=== PATIENT | female | born 1945 | race Caucasian/White ===

== ENCOUNTER 2016-08-14 01:25 | Emergency (ER) | payer MEDICARE ==
[~2016-08-14] VITALS: Ht 165.1 cm; Wt 89.8 kg
[~2016-08-14 01:25] MED LIST: FLUT1DIS3 INH; Ipratropium/Albuterol Sulfate NEB; LEVO500T38 PO; METO50TA2 PO; PRED-220 PO; PROAIR HFA8.5 GM IH
[2016-08-14] MEDS ORDERED: IPRATRPIUM/ALBUTEROL 0.5/2.5MG 3 ML NEBU. NEB ONE (03:00)
[2016-08-14] MEDS ORDERED: ALBUTEROL SULFATE 2.5 MG/3 ML NEBU. NEB ONE (03:15)
--- NOTE | 2016-08-14 03:16 | PHYS DOC ---
Past Medical History Past Medical History: Anxiety, COPD, Hypertension, Other Additional Past Medical Histor: shingles Past Surgical History: Appendectomy, Cholecystectomy Alcohol Use: None Drug Use: None Adult General Chief Complaint Chief Complaint: SHORTNESS OF BREATH HPI HPI Patient is a 71 year old female who presents with complaint of shortness of breath. Patient states that her nebulizer machine broke at home earlier today. Patient states that she normally takes breathing treatments every 4-6 hours. Patient states since her machine broke she has not been able to get her breathing treatment which has caused her to get worsening shortness of breath. Patient denies any fevers or other symptoms. Patient came to the emergency department essentially for treatment of her COPD. Patient denies any chest pain or abdominal pain. Review of Systems Review of Systems Constitutional: Denies fever or chills [] Eyes: Denies change in visual acuity, redness, or eye pain [] HENT: Denies nasal congestion or sore throat [] Respiratory: Cough, shortness of breath [] Cardiovascular: No additional information not addressed in HPI [] GI: Denies abdominal pain, nausea, vomiting, bloody stools or diarrhea [] : Denies dysuria or hematuria [] Musculoskeletal: Denies back pain or joint pain [] Integument: Denies rash or skin lesions [] Neurologic: Denies headache, focal weakness or sensory changes [] Current Medications Current Medications Current Medications Medications (Trade) Dose Ordered Sig/Low Start Time Stop Time Status Last Admin Dose Admin Albuterol Sulfate (Ventolin Neb Soln) 2.5 mg 1X ONCE 08/14/16 03:15 08/14/16 03:16 Albuterol/ Ipratropium (Duoneb) 3 ml 1X ONCE 08/14/16 03:00 08/14/16 03:02 DC 08/14/16 02:36 3 ML Allergies Allergies Allergies Coded Allergies Type Severity Reaction Last Updated Verified Penicillins Allergy Intermediate 03/28/14 No Physical Exam Physical Exam Constitutional: Alert, afebrile, appears in mild respiratory distress. [] HENT: Normocephalic, atraumatic, bilateral external ears normal, oropharynx moist, no oral exudates, nose normal. [] Eyes: PERRLA, EOMI, conjunctiva normal, no discharge. [] Neck: Normal range of motion, no tenderness, supple, no stridor. [] Cardiovascular:Heart rate regular rhythm, no murmur [] Lungs & Thorax: Mild accessory muscle usage present, expiratory wheezes bilaterally, no rales [] Abdomen: Bowel sounds normal, soft, no tenderness, no masses, no pulsatile masses. [] Skin: Warm, dry, no erythema, no rash. [] Back: No tenderness, no CVA tenderness. [] Extremities: No tenderness, no cyanosis, no clubbing, ROM intact, no edema. [] Neurologic: Alert and oriented X 3, normal motor function, normal sensory function, no focal deficits noted. [] Current Patient Data Vital Signs Vital Signs Date Time Temp Pulse Resp B/P Pulse Ox O2 Delivery O2 Flow Rate FiO2 08/14/16 02:40 99 Room Air 08/14/16 01:45 98.2 88 28 214/102 4 98.2 EKG EKG Interpreted by me: Heart rate 82, sinus rhythm, normal intervals, right axis deviation, no acute ST/T-wave abnormalities present Radiology/Procedures Radiology/Procedures Not performed [] Course & Med Decision Making Course & Med Decision Making Pertinent Labs and Imaging studies reviewed. (See chart for details) The patient was given breathing treatments in the emergency department with resolution of symptoms. After speaking with the patient, she states that her main concern is that she does not have a nebulizer machine. She states that she requires a prescription for Percocet the nebulizer machine. I contacted [facility] pharmacy at [address] [place] [address] and spoke with the pharmacist at that location. She stated that the patient were provided a prescription she would be able to solve the nebulizer machine to the patient at cost. Spoke with patient regarding this plan and she is in agreement. Patient provided with a prescription for a nebulizer machine and instructed to go to [facility] pharmacy upon discharge from purchase of her machine. Patient states that she has plenty of albuterol solution at home and does not require any prescription for that. Advised patient to return emergency department for any worsening symptoms. Patient voiced understanding and in agreement with treatment plan. Dragon Disclaimer Dragon Disclaimer This electronic medical record was generated, in whole or in part, using a voice recognition dictation system. Departure Departure Impression: Primary Impression: COPD (chronic obstructive pulmonary disease) Disposition: HOME, SELF-CARE Condition: IMPROVED Referrals: NO PCP (PCP) Patient Instructions: Chronic Obstructive Pulmonary Disease Additional Instructions: Go to [facility] pharmacy at [address] [place] [address] upon discharge and present your prescription for a nebulizer machine and they will be able to sell you a machine at cost of approximately $70. Return to the emergency department for any worsening symptoms. Problem Qualifiers Primary Impression: COPD (chronic obstructive pulmonary disease) COPD type: unspecified COPD Qualified Code: J44.9 - Chronic obstructive pulmonary disease, unspecified RASHAAD ABEBE MD Aug 14, 2016 03:16
[2016-08-14 03:29] VITALS: BP 180/75
--- NOTE | 2016-08-14 06:37 | EKG ---
[facility] [address] [place] [address] Test Date: 2016-08-14 Test Time: 01:39:32 Pat Name: TONI LEWIS Department: Room: Gender: F Safety Person: : 1945 Requested By: RASHAAD ABEBE Order Number: [id number] Reading MD: Janette Yost Measurements Intervals [place] Rate: 82 P: 90 MD: 174 QRS: 146 QRSD: 102 T: 144 QT: 374 QTc: 440 Interpretive Statements SINUS RHYTHM RIGHT VENTRICULAR HYPERTROPHY QRS(T) CONTOUR ABNORMALITY CONSISTENT WITH HIGH LATERAL INFARCT AGE UNDETERMINED T ABNORMALITY IN INFERIOR LEADS Electronically Signed On 08-19-2016 12:52:54 CDT by Janette Yost
== END 2016-08-14 03:35 | disposition home or self-care (01) ==
LOC: ER 01:25
DX: J44.9 Chronic obstructive pulmonary disease, unspecified (principal); F41.9 Anxiety disorder, unspecified; I10 Essential (primary) hypertension; Z90.49 Acquired absence of other specified parts of digestive tract; Z88.1 Allergy status to other antibiotic agents
CPT/HCPCS: 93005; 94640; 99284; J7620

== ENCOUNTER 2017-01-10 10:50 | Emergency (ER) | payer MEDICARE ==
[~2017-01-10 10:50] MED LIST changes: -LEVO500T38 PO; +LEVO500T59 PO
--- NOTE | 2017-01-10 11:15 | PHYS DOC ---
Past Medical History Past Medical History: Anxiety, COPD, Hypertension, Other Additional Past Medical Histor: shingles Past Surgical History: Appendectomy, Cholecystectomy Alcohol Use: None Drug Use: None Adult General Chief Complaint Chief Complaint: DYSPNEA/RESPIRATOY DISTRESS HPI HPI Patient is a pleasant 71-year-old female with history of COPD and hypertension presents to the emergency department looking for a folder taper operator office and was actually triaged and brought back to the ER with no complaint. She is here as an outpatient she is supposed be on the for an outpatient evaluation in Dr. ARZATE's office when she was told that she can here which she does not know was the emergency department. She has no complaints and no need to be evaluated here in the emergency department. Review of Systems Review of Systems Respiratory: Denies cough or patient does have chronic shortness of breath[] Review systems otherwise collected and negative. Allergies Allergies Allergies Coded Allergies Type Severity Reaction Last Updated Verified Penicillins Allergy Intermediate 03/28/14 No Physical Exam Physical Exam Vital signs stable patient on her normal 2 L of oxygen satting at 94% on noted to be hypertensive which is chronic for patient. Constitutional: Well developed, well nourished, no acute distress, non-toxic appearance. [] Cardiovascular:Heart rate regular rhythm, no murmur [] Lungs & Thorax: Bilateral breath sounds clear to auscultation [] Neurologic: Alert and oriented X 3 Psychologic: Affect normal, judgement normal, mood normal. [] EKG EKG [] Radiology/Procedures Radiology/Procedures [] Course & Med Decision Making Course & Med Decision Making Pertinent Labs and Imaging studies reviewed. (See chart for details) patient came into the emergency department under the impression she is going to an outpatient clinic for an evaluation by folder taper operator. She has no complaint she has no need to be seen here in the emergency department. She has negative systems, normal exam at her baseline hypertension. She would like to be discharged. [] Dragon Disclaimer Dragon Disclaimer This electronic medical record was generated, in whole or in part, using a voice recognition dictation system. Departure Departure Impression: Primary Impression: Well adult health check Disposition: HOME, SELF-CARE Condition: IMPROVED Referrals: NO PCP (PCP) DILLON ARZATE MD Additional Instructions: Please return if you have any questions or concerns. TRACI WATKINS MD Jan 10, 2017 11:15
== END 2017-01-10 11:15 | disposition home or self-care (01) ==
LOC: ER 10:50
DX: Z00.00 Encounter for general adult medical examination without abnormal findings (principal); J44.9 Chronic obstructive pulmonary disease, unspecified; I10 Essential (primary) hypertension; F41.9 Anxiety disorder, unspecified; Z88.0 Allergy status to penicillin
CPT/HCPCS: 99281

== ENCOUNTER → 2017-06-13 | Outpatient (CLI) | payer MEDICARE | END | disposition home or self-care (01) | LOC: KCIC 12:36 | DX: J43.9 Emphysema, unspecified (principal); J44.9 Chronic obstructive pulmonary disease, unspecified; J02.9 Acute pharyngitis, unspecified; I70.0 Atherosclerosis of aorta | CPT/HCPCS: 71046 ==

== ENCOUNTER 2019-03-09 15:49 | Inpatient (IN) | payer MEDICARE ==
[~2019-03-09] VITALS: Ht 165.1 cm; Wt 86.4 kg
[~2019-03-09 15:49] MED LIST changes: +ALBU2.5V8 IH; +LISI-130 PO; -METO50TA2 PO; +METO50TA6 PO; -PROAIR HFA8.5 GM IH; +Pantoprazole PO
--- NOTE | 2019-03-09 16:16 | PHYS DOC ---
Past Medical History Past Medical History: Anxiety, COPD, Hypertension, Other Additional Past Medical Histor: shingles Past Surgical History: Appendectomy, Cholecystectomy Additional Past Surgical Histo: cyst from breast Smoking: Quit Greater Than 1 Year Alcohol Use: None Drug Use: None Adult General Chief Complaint Chief Complaint: SHORTNESS OF BREATH HPI HPI Patient is a 73-year-old female, with oxygen-dependent COPD who presents to the emergency department for evaluation. She has no clear chief complaint, she states "my children thought I needed to come". According to EMS report, she was out of her nebulizers for several days, she states that she uses numerous nebulizer treatments per day, and she just got a refill today and took numerous nebulizer treatments, almost hourly, for COPD. She denies any pain, including any chest pain. She has had a mild cough, but currently denies that she is anymore short of breath than her baseline. She has not had any fevers or chills. There are no other family members present at this time. There are no alleviating or exacerbating factors to the patient's symptoms otherwise. Review of Systems Review of Systems Constitutional: Denies fever or chills [] Eyes: Denies change in visual acuity, redness, or eye pain [] HENT: Denies nasal congestion or sore throat [] Respiratory: Denies cough or shortness of breath different than baseline [] Cardiovascular: The patient denies any shortness of breath, chest pain, palpitations, or orthopnea [] GI: Denies abdominal pain, nausea, vomiting, bloody stools or diarrhea [] : Denies dysuria or hematuria [] Musculoskeletal: Denies back pain or joint pain [] Integument: Denies rash or skin lesions [] Neurologic: Denies headache, focal weakness or sensory changes [] Endocrine: Denies polyuria or polydipsia [] All other systems were reviewed and found to be within normal limits, except as documented in this note. Current Medications Current Medications Current Medications Medications (Trade) Dose Ordered Sig/Low Start Time Stop Time Status Last Admin Dose Admin Albuterol/ Ipratropium (Duoneb) 3 ml 1X ONCE 03/09/19 18:00 03/09/19 18:01 UNV Lorazepam (Ativan Inj) 1 mg 1X ONCE 03/09/19 16:00 03/09/19 16:03 DC 03/09/19 16:57 1 MG Allergies Allergies Allergies Coded Allergies Type Severity Reaction Last Updated Verified Penicillins Allergy Intermediate 03/14/18 Yes Physical Exam Physical Exam PHYSICAL EXAM: CONSTITUTIONAL: Well developed, well nourished HEAD: normocephalic, atraumatic EENT: PERRL, EOMI. Conjunctivae normal color, sclerae non-icteric; moist mucous membranes. NECK: Supple, non-tender; no meningismus. LUNGS: There are globally diminished breath sounds, with mildly labored debbie athing, but the patient states that this is baseline. There are no Rales, wheezes, or rhonchi.. HEART: Regular rate and rhythm, no murmur CHEST: No deformity; non-tender ABDOMEN: The abdomen is soft, and non-tender, no masses or bruits. EXTREM: Normal ROM; no deformity, no calf tenderness. Normal pulses palpable in all extremities. There is no pedal edema. SKIN: No rash; no diaphoresis NEURO: Alert; normal speech and cognition; CN's grossly intact; strength grossly intact without focal deficit. BACK: No CVA TTP. PSYCHIATRIC: The patient appears moderately anxious. Current Patient Data Vital Signs Vital Signs Date Time Temp Pulse Resp B/P (MAP) Pulse Ox O2 Delivery O2 Flow Rate FiO2 03/09/19 15:49 98.9 99 20 176/67 (103) 2 Room Air 98.9 Lab Values Laboratory Tests Test 03/09/19 16:15 03/09/19 16:45 O2 Saturation 88 % (92-99) L Arterial Blood pH 7.40 (7.35-7.45) Arterial Blood pCO2 at Patient Temp 56 mmHg (35-46) H Arterial Blood pO2 at Patient Temp 51 mmHg (65-108) L Arterial Blood HCO3 33 mmol/L (21-28) H Arterial Blood Base Excess 7 mmol/L (-3-3) H FiO2 2 lpm nc White Blood Count 5.9 x10^3/uL (4.0-11.0) Red Blood Count 4.52 x10^6/uL (3.50-5.40) Hemoglobin 13.2 g/dL (12.0-15.5) Hematocrit 40.0 % (36.0-47.0) Mean Corpuscular Volume 88 fL (79-100) Mean Corpuscular Hemoglobin 29 pg (25-35) Mean Corpuscular Hemoglobin Concent 33 g/dL (31-37) Red Cell Distribution Width 14.4 % (11.5-14.5) Platelet Count 169 x10^3/uL (140-400) Neutrophils (%) (Auto) 64 % (31-73) Lymphocytes (%) (Auto) 24 % (24-48) Monocytes (%) (Auto) 9 % (0-9) Eosinophils (%) (Auto) 3 % (0-3) Basophils (%) (Auto) 1 % (0-3) Neutrophils # (Auto) 3.8 x10^3/uL (1.8-7.7) Lymphocytes # (Auto) 1.4 x10^3/uL (1.0-4.8) Monocytes # (Auto) 0.5 x10^3/uL (0.0-1.1) Eosinophils # (Auto) 0.1 x10^3/uL (0.0-0.7) Basophils # (Auto) 0.0 x10^3/uL (0.0-0.2) Sodium Level 148 mmol/L (136-145) H Potassium Level 3.6 mmol/L (3.5-5.1) Chloride Level 104 mmol/L (98-107) Carbon Dioxide Level 38 mmol/L (21-32) H Anion Gap 6 (6-14) Blood Urea Nitrogen 13 mg/dL (7-20) Creatinine 0.7 mg/dL (0.6-1.0) Estimated GFR (Cockcroft-Gault) 82.0 BUN/Creatinine Ratio 19 (6-20) Glucose Level 147 mg/dL (70-99) H Calcium Level 8.9 mg/dL (8.5-10.1) Total Bilirubin 0.5 mg/dL (0.2-1.0) Aspartate Amino Transferase (AST) 16 U/L (15-37) Alanine Aminotransferase (ALT) 10 U/L (14-59) L Alkaline Phosphatase 75 U/L (46-116) Troponin I Quantitative < 0.017 ng/mL (0.000-0.055) KZ-Xod-S-Type Natriuretic Peptide 531 pg/mL (0-124) H Total Protein 6.6 g/dL (6.4-8.2) Albumin 3.8 g/dL (3.4-5.0) Albumin/Globulin Ratio 1.4 (1.0-1.7) Laboratory Tests 03/09/19 16:45 Laboratory Tests 03/09/19 16:45 EKG EKG Normal sinus rhythm at a rate of 92 beats for minute, normal axis, right bundle-branch block with otherwise normal intervals. There are no acute ischemic ST/T changes. Radiology/Procedures Radiology/Procedures PROCEDURE: CHEST PA & LATERAL Chest radiograph 03/09/2019 3:59 PM INDICATION: Shortness of breath COMPARISON: 03/13/2018 TECHNIQUE: Frontal and lateral views of the chest are provided. FINDINGS: The cardiomediastinal silhouette is within normal limits. There are no pleural effusions. There is no pulmonary vascular congestion. There is no pneumothorax. The lungs are clear. Suspect mild pulmonary emphysematous changes. No significant osseous abnormality is identified. IMPRESSION: COPD without acute cardiopulmonary process. [] Course & Med Decision Making Course & Med Decision Making 5:50 PM: Pertinent Labs and Imaging studies reviewed. (See chart for details) []The patient's condition remains stable. Her oxygen saturations remains fluctuating, between 89-92% on her home oxygen. She is uncertain if she feels well enough to go home. She is agreeable for overnight observation. The hospitalist graciously agreed to admit the patient overnight. There is certainly a social issue going on with the patient and her living situation, which will need to be evaluated before she is released. Dragon Disclaimer Dragon Disclaimer This electronic medical record was generated, in whole or in part, using a voice recognition dictation system. Departure Departure Impression: Primary Impression: COPD (chronic obstructive pulmonary disease) Additional Impressions: Dyspnea Anxiety Disposition: ADMITTED INPATIENT Condition: STABLE Referrals: AGUSTIN RIOS DO (PCP) Problem Qualifiers AWAIS MENDENHALL MD Mar 09, 2019 16:16
[2019-03-09 16:27] LABS: BASE EXCESS ABG 7 mmol/L (-3-3); HCO3 ABG 33 mmol/L (21-28); PCO2 ABG 56 mmHg (35-46); PO2 ABG 51 mmHg (65-108); SAT O2 ABG 88 % (92-99)
--- NOTE | 2019-03-09 16:43 | RAD ---
Chest radiograph 03/09/2019 3:59 PM INDICATION: Shortness of breath COMPARISON: 03/13/2018 TECHNIQUE: Frontal and lateral views of the chest are provided. FINDINGS: The cardiomediastinal silhouette is within normal limits. There are no pleural effusions. There is no pulmonary vascular congestion. There is no pneumothorax. The lungs are clear. Suspect mild pulmonary emphysematous changes. No significant osseous abnormality is identified. IMPRESSION: COPD without acute cardiopulmonary process. Electronically signed by: Jerri Ding MD (03/09/2019 4:41 PM) [facility]
[2019-03-09 17:01] LABS: BASO % 1 % (0-3); EOS # 0.1 x10^3/uL (0.0-0.7); EOS % 3 % (0-3); HEMOGLOBIN 13.2 g/dL (12.0-15.5); LYMPH # 1.4 x10^3/uL (1.0-4.8); LYMPH % 24 % (24-48); MEAN CORPUSCULAR HEMOGLOBIN 29 pg (25-35); MEAN CORPUSCULAR HGB CONC 33 g/dL (31-37); MEAN CORPUSCULAR VOLUME 88 fL (79-100); MONO # 0.5 x10^3/uL (0.0-1.1); MONO % 9 % (0-9); NEUT # 3.8 x10^3/uL (1.8-7.7); NEUT % 64 % (31-73); PLATELET COUNT 169 x10^3/uL (140-400); RED BLOOD COUNT 4.52 x10^6/uL (3.50-5.40); RED CELL DISTRIBUTION WIDTH 14.4 % (11.5-14.5); WHITE BLOOD COUNT 5.9 x10^3/uL (4.0-11.0)
[2019-03-09 17:11] LABS: CALCIUM 8.9 mg/dL (8.5-10.1); CREATININE 0.7 mg/dL (0.6-1.0); POTASSIUM 3.6 mmol/L (3.5-5.1)
[2019-03-09 17:16] LABS: ALBUMIN 3.8 g/dL (3.4-5.0); ALBUMIN/GLOBULIN RATIO 1.4 (1.0-1.7); TOTAL BILIRUBIN 0.5 mg/dL (0.2-1.0); TOTAL PROTEIN 6.6 g/dL (6.4-8.2)
[2019-03-09] MEDS ORDERED: IPRATRPIUM/ALBUTEROL 0.5/2.5MG 3 ML NEBU. NEB ONE (18:00)
[2019-03-09 20:45] VITALS: BP 171/78
[2019-03-09] MEDS ORDERED: ALPR1TAB2 PO (22:04)
[2019-03-09] MEDS ORDERED: ALBUTEROL SULFATE 2.5 MG/3 ML NEBU. NEB PRN (22:30)
[2019-03-09] MEDS: ALPRAZolam 1 MG TABLET PO SCH (23:11)
[2019-03-09 23:33] VITALS: BP 157/70
[2019-03-10 03:33] VITALS: BP 152/52
--- NOTE | 2019-03-10 06:13 | EKG ---
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
[2019-03-10 07:52] VITALS: BP 166/69
[2019-03-10] MEDS: IPRATRPIUM/ALBUTEROL 0.5/2.5MG 3 ML NEBU. NEB SCH ×6 (08:15→20:00)
[2019-03-10] MEDS ORDERED: FLU VAX QS 2019-20 (36MOS+)/PF 0.5 ML SYRINGE. VAX IM ONE (09:00)
--- NOTE | 2019-03-10 09:17 | NUR ---
Flu VIS given, patient denies questions or allergies and wishes to proceed with flu vaccine. See emar.
--- NOTE | 2019-03-10 10:42 | PDOC1 ---
History and Physical Date of Admission Date of Admission DATE: 03/10/19 TIME: 10:42 Identification/Chief Complaint Chief Complaint SEEN IN ER WITH soa 73-year-old female, with oxygen-dependent COPD who presents to the emergency department for evaluation. She has no clear chief complaint, she states "my children thought I needed to come". According to EMS report, she was out of her nebulizers for several days, she states that she uses numerous nebulizer treatments per day, and she just got a refill today and took numerous nebulizer treatments, almost hourly, for COPD. abg confirms severe hypoxia with hypercapnic failure smoked 1 ppd x 40 plus years stopped 4 yrs ago, has never seen a pulm DR , VERY SOA WITH ANY ACTIVITY LAST SAW DR STEVENS YRS AGO Past Medical History Past Medical History Past Medical History Past Medical History Past Medical History: Anxiety, COPD, Hypertension, Other Additional Past Medical Histor: shingles Past Surgical History: Appendectomy, Cholecystectomy Additional Past Surgical Histo: cyst from breast Smoking: Quit Greater Than 1 Year 50 PK YR HX Alcohol Use: None Drug Use: None FHX OBESITY Cardiovascular: HTN, Hyperlipidemia Pulmonary: Asthma, COPD Musculoskeletal: Osteoarthritis Past Surgical History Past Surgical History: Other, No pertinent history Family History Family History: Chronic Bronchitis, Hypertension Social History Smoke: Quit ALCOHOL: rare Drugs: None Current Problem List Problem List Problems Medical Problems: (1) Anxiety Status: Acute (2) COPD (chronic obstructive pulmonary disease) Status: Acute (3) Dyspnea Status: Acute Current Medications Current Medications Current Medications Lorazepam (Ativan Inj) 1 mg 1X ONCE IV Last administered on 03/09/19at 16:57; Start 03/09/19 at 16:00; Stop 03/09/19 at 16:03; Status DC Albuterol/ Ipratropium (Duoneb) 3 ml 1X ONCE NEB Last administered on 03/09/19at 18:02; Start 03/09/19 at 18:00; Stop 03/09/19 at 18:01; Status DC Influenza Virus Vaccine Quadrival (Afluria Quad 2019-20 (3yr Up) Syringe) 0.5 ml ONCE ONCE VAX IM Last administered on 03/10/19at 09:23; Start 03/10/19 at 09:00; Stop 03/10/19 at 09:06; Status DC Albuterol Sulfate (Ventolin Neb Soln) 2.5 mg PRN Q4HRS PRN NEB SHORTNESS OF BREATH; Start 03/09/19 at 22:30 Albuterol/ Ipratropium (Duoneb) 3 ml RTQID NEB Last administered on 03/10/19at 08:15; Start 03/10/19 at 08:00 Alprazolam (Xanax) 1 mg HS PO Last administered on 03/09/19at 23:11; Start 03/09/19 at 23:00 Active Scripts Active [Pantoprazole] 40 MG Tablet.dr 40 Mg PO DAILY07 14 Days Lisinopril 40 Mg Tablet 40 Mg PO DAILY 30 Days Prednisone (Prednisone) 10 Mg Tablet 10 Mg PO UD Take 3 tablets by mouth twice a day for 3 days, then take 2 tablets by mouth twice a day for 3 days, then take 1 tablet by mouth twice a day for 3 days, then take 1 tablet by mouth daily x 3 days, then stop. Proair Hfa Inhaler (Albuterol Sulfate) 8.5 Gm Hfa.aer.ad 2 Puff IH PRN Q4-6HRS [Ipratropium/Albuterol Sulfate] 3 ML Nebu 3 Ml NEB RTQID Advair 250-50 Diskus (Fluticasone/Salmeterol) 1 Puff Puff 1 Puff INH BID Reported Xanax (Alprazolam) 1 Mg Tablet 1 Tab PO HS Allergies Allergies: Coded Allergies: Penicillins (Verified Allergy, Intermediate, 03/14/18) ROS Review of System Review of Systems Review of Systems Constitutional: Denies fever or chills [] Eyes: Denies change in visual acuity, redness, or eye pain [] HENT: Denies nasal congestion or sore throat [] Respiratory: Denies cough or shortness of breath different than baseline [] Cardiovascular: The patient denies any shortness of breath, chest pain, palpitations, or orthopnea [] GI: Denies abdominal pain, nausea, vomiting, bloody stools or diarrhea [] : Denies dysuria or hematuria [] Musculoskeletal: Denies back pain or joint pain [] Integument: Denies rash or skin lesions [] Neurologic: Denies headache, focal weakness or sensory changes [] Endocrine: Denies polyuria or polydipsia [] 14 pt systems were reviewed and found to be within normal limits, except as documented General: YES: Fatigue Breast: No New/Changing Breast Lumps, No Nipple changes, No Nipple discharge, No Other Respiratory: YES: Cough, Shortness of breath, SOB with excertion Cardiovascular: yes Orthopnea Gastrointestinal: No Nausea, No Vomiting, No Abdominal Pain, No Diarrhea, No Constipation, No Melena, No Hematochezia, No Other Vitals Vitals Vital Signs Date Time Temp Pulse Resp B/P (MAP) Pulse Ox O2 Delivery O2 Flow Rate FiO2 03/10/19 08:15 91 Nasal Cannula 2.0 03/10/19 07:52 97.8 59 18 166/69 (101) 97.8 Labs Labs Laboratory Tests Test 03/09/19 16:15 03/09/19 16:45 O2 Saturation 88 % (92-99) Arterial Blood pH 7.40 (7.35-7.45) Arterial Blood pCO2 at Patient Temp 56 mmHg (35-46) Arterial Blood pO2 at Patient Temp 51 mmHg (65-108) Arterial Blood HCO3 33 mmol/L (21-28) Arterial Blood Base Excess 7 mmol/L (-3-3) FiO2 2 lpm nc White Blood Count 5.9 x10^3/uL (4.0-11.0) Red Blood Count 4.52 x10^6/uL (3.50-5.40) Hemoglobin 13.2 g/dL (12.0-15.5) Hematocrit 40.0 % (36.0-47.0) Mean Corpuscular Volume 88 fL (79-100) Mean Corpuscular Hemoglobin 29 pg (25-35) Mean Corpuscular Hemoglobin Concent 33 g/dL (31-37) Red Cell Distribution Width 14.4 % (11.5-14.5) Platelet Count 169 x10^3/uL (140-400) Neutrophils (%) (Auto) 64 % (31-73) Lymphocytes (%) (Auto) 24 % (24-48) Monocytes (%) (Auto) 9 % (0-9) Eosinophils (%) (Auto) 3 % (0-3) Basophils (%) (Auto) 1 % (0-3) Neutrophils # (Auto) 3.8 x10^3/uL (1.8-7.7) Lymphocytes # (Auto) 1.4 x10^3/uL (1.0-4.8) Monocytes # (Auto) 0.5 x10^3/uL (0.0-1.1) Eosinophils # (Auto) 0.1 x10^3/uL (0.0-0.7) Basophils # (Auto) 0.0 x10^3/uL (0.0-0.2) Sodium Level 148 mmol/L (136-145) Potassium Level 3.6 mmol/L (3.5-5.1) Chloride Level 104 mmol/L (98-107) Carbon Dioxide Level 38 mmol/L (21-32) Anion Gap 6 (6-14) Blood Urea Nitrogen 13 mg/dL (7-20) Creatinine 0.7 mg/dL (0.6-1.0) Estimated GFR (Cockcroft-Gault) 82.0 BUN/Creatinine Ratio 19 (6-20) Glucose Level 147 mg/dL (70-99) Calcium Level 8.9 mg/dL (8.5-10.1) Total Bilirubin 0.5 mg/dL (0.2-1.0) Aspartate Amino Transf (AST/SGOT) 16 U/L (15-37) Alanine Aminotransferase (ALT/SGPT) 10 U/L (14-59) Alkaline Phosphatase 75 U/L (46-116) Troponin I Quantitative < 0.017 ng/mL (0.000-0.055) ZY-Dla-C-Type Natriuretic Peptide 531 pg/mL (0-124) Total Protein 6.6 g/dL (6.4-8.2) Albumin 3.8 g/dL (3.4-5.0) Albumin/Globulin Ratio 1.4 (1.0-1.7) Laboratory Tests Test 03/09/19 16:15 03/09/19 16:45 O2 Saturation 88 % (92-99) Arterial Blood pH 7.40 (7.35-7.45) Arterial Blood pCO2 at Patient Temp 56 mmHg (35-46) Arterial Blood pO2 at Patient Temp 51 mmHg (65-108) Arterial Blood HCO3 33 mmol/L (21-28) Arterial Blood Base Excess 7 mmol/L (-3-3) FiO2 2 lpm nc White Blood Count 5.9 x10^3/uL (4.0-11.0) Red Blood Count 4.52 x10^6/uL (3.50-5.40) Hemoglobin 13.2 g/dL (12.0-15.5) Hematocrit 40.0 % (36.0-47.0) Mean Corpuscular Volume 88 fL (79-100) Mean Corpuscular Hemoglobin 29 pg (25-35) Mean Corpuscular Hemoglobin Concent 33 g/dL (31-37) Red Cell Distribution Width 14.4 % (11.5-14.5) Platelet Count 169 x10^3/uL (140-400) Neutrophils (%) (Auto) 64 % (31-73) Lymphocytes (%) (Auto) 24 % (24-48) Monocytes (%) (Auto) 9 % (0-9) Eosinophils (%) (Auto) 3 % (0-3) Basophils (%) (Auto) 1 % (0-3) Neutrophils # (Auto) 3.8 x10^3/uL (1.8-7.7) Lymphocytes # (Auto) 1.4 x10^3/uL (1.0-4.8) Monocytes # (Auto) 0.5 x10^3/uL (0.0-1.1) Eosinophils # (Auto) 0.1 x10^3/uL (0.0-0.7) Basophils # (Auto) 0.0 x10^3/uL (0.0-0.2) Sodium Level 148 mmol/L (136-145) Potassium Level 3.6 mmol/L (3.5-5.1) Chloride Level 104 mmol/L (98-107) Carbon Dioxide Level 38 mmol/L (21-32) Anion Gap 6 (6-14) Blood Urea Nitrogen 13 mg/dL (7-20) Creatinine 0.7 mg/dL (0.6-1.0) Estimated GFR (Cockcroft-Gault) 82.0 BUN/Creatinine Ratio 19 (6-20) Glucose Level 147 mg/dL (70-99) Calcium Level 8.9 mg/dL (8.5-10.1) Total Bilirubin 0.5 mg/dL (0.2-1.0) Aspartate Amino Transf (AST/SGOT) 16 U/L (15-37) Alanine Aminotransferase (ALT/SGPT) 10 U/L (14-59) Alkaline Phosphatase 75 U/L (46-116) Troponin I Quantitative < 0.017 ng/mL (0.000-0.055) EL-Tdh-B-Type Natriuretic Peptide 531 pg/mL (0-124) Total Protein 6.6 g/dL (6.4-8.2) Albumin 3.8 g/dL (3.4-5.0) Albumin/Globulin Ratio 1.4 (1.0-1.7) Images Images Examination: CT chest with IV contrast. History: Followup left upper lobe infiltrate COMPARISON: 10/01/2014. TECHNIQUE Axial CT images of the chest were performed with IV contrast. Coronal and sagittal reformats were performed. FINDINGS The visualized thyroid gland grossly appears unremarkable. The central airways are patent. Multiple prominent appearing mediastinal lymph nodes are again identified with the largest measuring 1.9 centimeters in the pretracheal region grossly appears similar to prior exam. The subcarinal lymph node measures 2.4 centimeters in transverse dimension. The heart size is normal. No evidence of pericardial effusion identified. Moderate aortic atherosclerosis. Coronary artery calcifications identified. The ascending thoracic aorta measures 3.6 x 3.5 centimeters in dimension. Bilateral centrilobular emphysematous changes identified in the lungs particularly the upper lobe the lungs. The previously visualized left upper lobe infiltrate has completely resolved. There is a 4 millimeter questionable pulmonary nodule identified in the left upper lobe of the lung best visualized on series 4 image #13. Few scattered calcified granulomas identified in the bilateral lungs. There is a small 4 millimeter noncalcified pulmonary nodule identified in the right lung base best visualized on series 4 image #43. No evidence of pleural effusion or pneumothorax. The visualized liver, adrenals grossly appear unremarkable. Few calcified granulomas identified in the spleen. The bilateral kidneys enhance symmetrically. There is a partially visualized cystic structure identified in the midpole of the left kidney. Mild degenerative changes identified in the thoracic spine. Moderate aortic atherosclerosis. IMPRESSION - The previously visualized infiltrate in the left upper lobe of the lung has completely resolved. - 4 millimeter pulmonary nodule identified in the left upper lobe and right lower lobe of the lung. Followup per Fleischner society guidelines. - Few scattered calcified granulomas identified in the bilateral lungs. - Few prominent appearing mediastinal lymph nodes are identified , nonspecific, followup examination is recommended to document resolution. - Bilateral emphysematous is identified in the lungs. - Partially visualized exophytic cystic structure identified in the midpole of the left kidney could be a cyst or cystic lesion. Electronically signed by: Brenden Wright (Feb 02, 2015 12:08:39) DICTATED and SIGNED BY: BRENDEN WRIGHT MD DATE: 02/02/15 1208 CC: AGUSTIN RIOS DO ~ SEX: F EXAM STATUS: PRE ER ORD. PHYSICIAN: AWAIS MENDENHALL MD REASON: SOB PROCEDURE: CHEST PA & LATERAL Chest radiograph 03/09/2019 3:59 PM INDICATION: Shortness of breath COMPARISON: 03/13/2018 TECHNIQUE: Frontal and lateral views of the chest are provided. FINDINGS: The cardiomediastinal silhouette is within normal limits. There are no pleural effusions. There is no pulmonary vascular congestion. There is no pneumothorax. The lungs are clear. Suspect mild pulmonary emphysematous changes. No significant osseous abnormality is identified. IMPRESSION: COPD without acute cardiopulmonary process. Electronically signed by: Ramiro Trevizo MD (03/09/2019 4:41 PM) [facility] DICTATED and SIGNED BY: RAMIRO TREVIZO MD DATE: 03/09/19 1641 VTE Prophylaxis Ordered VTE Prophylaxis Devices: Yes VTE Pharmacological Prophylaxi: Yes Assessment/Plan Assessment/Plan impression acute SEVERE copd exac acute severe hypercapnic , hypoxic respiratory failure in 2014 ct chest , Multiple prominent appearing mediastinal lymph nodes are identified with the largest measuring 1.9 centimeters in the pretracheal region grossly appears similar to prior exam. The subcarinal lymph node measures 2.4 centimeters in transverse dimension. morbid obesity uncontrolled hypertension tobacco abuse hx DYSPNEA ON EXERTION plan admit tele iv steroid taper pulm consult home meds dvt prophylaxis ct chest echo cardiology consult TSH 75 MIN PT EXAM, CHART REVIEW, > 50% OF TIME SPENT WITH EXAM, CHART REVIEW, PT CARE COORDINATION YOANDY GUTIERREZ MD Mar 10, 2019 10:42
[2019-03-10 11:59] VITALS: BP 125/62
[2019-03-10 15:59] VITALS: BP 155/82
[2019-03-10] MEDS ORDERED: ALBUTEROL SULFATE 2.5 MG/3 ML NEBU. NEB PRN (17:45)
[2019-03-10] MEDS ORDERED: 0.9 % SODIUM CHLORIDE 10 ML DISP.SYRIN. IV PRN (18:15)
[2019-03-10] MEDS ORDERED: guaiFENesin ORAL 200 MG/10 ML LIQUID. PO PRN (18:15)
[2019-03-10] MEDS ORDERED: ONDANSETRON PF 4 MG/2 ML VIAL. IV PRN (18:15)
[2019-03-10] MEDS ORDERED: cloNIDine HCL 0.1 MG TABLET PO PRN (18:15)
[2019-03-10] MEDS ORDERED: MAG HYDROX/ALUMINUM HYD/SIMETH 30 ML ORAL.SUSP PO PRN (18:15)
[2019-03-10] MEDS ORDERED: DOCUSATE SODIUM 100 MG CAPSULE. PO PRN (18:15)
[2019-03-10] MEDS ORDERED: ACETAMINOPHEN 325 MG TABLET. PO PRN (18:15)
[2019-03-10] MEDS: ENOXAPARIN 40 MG/0.4 ML SYRINGE. SQ SCH (18:36)
[2019-03-10] MEDS ORDERED: ALPRAZolam 0.5 MG TABLET PO ONE (19:15)
[2019-03-10 19:20] VITALS: BP 176/96
[2019-03-10] MEDS: BUDESONIDE 0.5 MG/2 ML NEBU. NEB SCH (19:59)
[2019-03-10] MEDS ORDERED: NON FORMULARY ITEM ([Ipratropium/Albuterol Sulfate] 3 ML) NEB SCH (20:00)
[2019-03-10] MEDS: ALPRAZolam 1 MG TABLET PO SCH (20:43)
[2019-03-10] MEDS ORDERED: ALPRAZolam 1 MG TABLET PO SCH (21:00)
[2019-03-10] MEDS ORDERED: NON FORMULARY ITEM (Fluticasone/Salmeterol (Advair 250-50 Diskus) 1 PUFF) INH SCH (21:00)
[2019-03-10] MEDS: methylPREDNISolone SOD SUCC PF 125 MG/2 ML VIAL. IV SCH (21:58)
[2019-03-10] MEDS: amLODIPine BESYLATE 5 MG TABLET PO SCH (23:00)
[2019-03-10 23:28] VITALS: BP 130/55
[2019-03-10] MEDS ORDERED: IPRATRPIUM/ALBUTEROL 0.5/2.5MG 3 ML NEBU. ONE (23:47)
[2019-03-11] MEDS: IPRATRPIUM/ALBUTEROL 0.5/2.5MG 3 ML NEBU. NEB SCH ×9 (00:12→23:35)
[2019-03-11 03:43] VITALS: BP 140/56
[2019-03-11] MEDS: methylPREDNISolone SOD SUCC PF 125 MG/2 ML VIAL. IV SCH ×3 (05:56→22:08)
[2019-03-11 06:29] LABS: BASO % 0 % (0-3); EOS % 0 % (0-3); HEMATOCRIT 41.8 % (36.0-47.0); HEMOGLOBIN 13.7 g/dL (12.0-15.5); LYMPH # 0.6 x10^3/uL (1.0-4.8); LYMPH % 12 % (24-48); MEAN CORPUSCULAR HEMOGLOBIN 29 pg (25-35); MEAN CORPUSCULAR HGB CONC 33 g/dL (31-37); MEAN CORPUSCULAR VOLUME 88 fL (79-100); MONO # 0.1 x10^3/uL (0.0-1.1); MONO % 1 % (0-9); NEUT # 4.5 x10^3/uL (1.8-7.7); NEUT % 87 % (31-73); PLATELET COUNT 187 x10^3/uL (140-400); RED BLOOD COUNT 4.76 x10^6/uL (3.50-5.40); RED CELL DISTRIBUTION WIDTH 14.4 % (11.5-14.5); WHITE BLOOD COUNT 5.2 x10^3/uL (4.0-11.0)
[2019-03-11 06:48] LABS: CALCIUM 8.6 mg/dL (8.5-10.1); CREATININE 0.7 mg/dL (0.6-1.0); GFR 81.8; POTASSIUM 3.5 mmol/L (3.5-5.1)
[2019-03-11 07:32] VITALS: BP 149/86
[2019-03-11] MEDS: PANTOPRAZOLE 40 MG TABLET.DR. PO SCH (08:16)
[2019-03-11] MEDS: LISINOPRIL 20 MG TABLET PO SCH (08:17)
[2019-03-11] MEDS: amLODIPine BESYLATE 5 MG TABLET PO SCH (08:17)
[2019-03-11] MEDS: BUDESONIDE 0.5 MG/2 ML NEBU. NEB SCH ×2 (08:46→20:26)
[2019-03-11 08:54] LABS: % ATYL 1 % (0-0); % BANDS 2 % (0-9); % LYMPHS 5 % (24-48); % MONOS 1 % (0-10); % SEGS 91 % (35-66); PLT ESTIMATE ADEQUATE (ADEQUATE)
[2019-03-11] MEDS ORDERED: ALPRAZolam 0.5 MG TABLET PO ONE (09:00)
--- NOTE | 2019-03-11 09:06 | PDOC ---
PROGRESS NOTES History of Present Illness History of Present Illness VTE Prophylaxis Ordered VTE Prophylaxis Devices: Yes VTE Pharmacological Prophylaxi: Yes Assessment/Plan Assessment/Plan impression acute SEVERE copd exac acute severe hypercapnic , hypoxic respiratory failure in 2014 ct chest , Multiple prominent appearing mediastinal lymph nodes are identified with the largest measuring 1.9 centimeters in the pretracheal region grossly appears similar to prior exam. The subcarinal lymph node measures 2.4 centimeters in transverse dimension. on CT CHEST 03/11 Mild centrilobular emphysematous involvement of the lungs ruiz.No suspicious pulmonary nodule, infiltrate or enlarged lymph nodes. morbid obesity uncontrolled hypertension tobacco abuse hx DYSPNEA ON EXERTION plan admit tele iv steroid taper pulm consult home meds dvt prophylaxis ct chest REVIEWED echo cardiology consult, echo TSH BIPAP support with sleep 38 MIN PT EXAM, CHART REVIEW, > 50% OF TIME SPENT WITH EXAM, CHART REVIEW, PT CARE COORDINATION Vitals Vitals Vital Signs Date Time Temp Pulse Resp B/P (MAP) Pulse Ox O2 Delivery O2 Flow Rate FiO2 03/11/19 08:48 93 Nasal Cannula 2.0 03/11/19 08:17 96 149/86 03/11/19 07:32 97.5 20 97.5 Physical Exam General: Alert, Oriented X3, Cooperative, No acute distress, mild distress (WITH MILD ACTIVITY) Heart: Other (MILD TACHY RARE 96) Lungs: Clear Abdomen: Normal bowel sounds, Soft, No tenderness Extremities: No cyanosis Labs LABS PROCEDURE: CT CHEST WO CONTRAST Examination: CT CHEST WO CONTRAST History: Pneumonia Comparison/Correlation: CTA chest 10/01/2014, CT chest with contrast 02/02/2015, 02/06/2019. Chest x-ray exam Findings: Axial images of the chest were obtained without contrast. Sagittal and coronal reformatted images were provided. The tracheobronchial tree is unremarkable. Minimal pericardial effusion noted. No pleural effusion. Mild centrilobular emphysematous along the lung ruiz. No enlarged thoracic lymph nodes. No suspicious infiltrates or nodules. Left upper lobe anteriorly located 0.4 cm diameter nodular density appears reported on 02/02/2015 is unchanged. Calcified granulomatous are present. No significant distention of the thoracic aorta. Calcific involvement of the distal thoracic aorta noted. Mild scattered coronary arterial calcification noted. Partially visualized upper abdomen. Cholecystectomy noted. Impression: Mild centrilobular emphysematous involvement of the lungs ruiz. No suspicious pulmonary nodule, infiltrate or enlarged lymph nodes. PQRS Compliance Statement: One or more of the following individualized dose reduction techniques were utilized for this examination: 1. Automated exposure control 2. Adjustment of the mA and/or kV according to patient size 3. Use of iterative reconstruction technique Electronically signed by: Wisam Perla MD (03/11/2019 10:22 AM) [facility] Laboratory Tests Test 03/10/19 16:45 03/11/19 03:45 Thyroid Stimulating Hormone (TSH) 1.015 uIU/mL (0.358-3.74) White Blood Count 5.2 x10^3/uL (4.0-11.0) Red Blood Count 4.76 x10^6/uL (3.50-5.40) Hemoglobin 13.7 g/dL (12.0-15.5) Hematocrit 41.8 % (36.0-47.0) Mean Corpuscular Volume 88 fL (79-100) Mean Corpuscular Hemoglobin 29 pg (25-35) Mean Corpuscular Hemoglobin Concent 33 g/dL (31-37) Red Cell Distribution Width 14.4 % (11.5-14.5) Platelet Count 187 x10^3/uL (140-400) Neutrophils (%) (Auto) 87 % (31-73) Lymphocytes (%) (Auto) 12 % (24-48) Monocytes (%) (Auto) 1 % (0-9) Eosinophils (%) (Auto) 0 % (0-3) Basophils (%) (Auto) 0 % (0-3) Neutrophils # (Auto) 4.5 x10^3/uL (1.8-7.7) Lymphocytes # (Auto) 0.6 x10^3/uL (1.0-4.8) Monocytes # (Auto) 0.1 x10^3/uL (0.0-1.1) Eosinophils # (Auto) 0.0 x10^3/uL (0.0-0.7) Basophils # (Auto) 0.0 x10^3/uL (0.0-0.2) Segmented Neutrophils % 91 % (35-66) Band Neutrophils % 2 % (0-9) Lymphocytes % 5 % (24-48) Atypical Lymphocytes % (Manual) 1 % (0-0) Monocytes % 1 % (0-10) Platelet Estimate Adequate (ADEQUATE) Sodium Level 145 mmol/L (136-145) Potassium Level 3.5 mmol/L (3.5-5.1) Chloride Level 103 mmol/L (98-107) Carbon Dioxide Level 32 mmol/L (21-32) Anion Gap 10 (6-14) Blood Urea Nitrogen 15 mg/dL (7-20) Creatinine 0.7 mg/dL (0.6-1.0) Estimated GFR (Cockcroft-Gault) 81.8 Glucose Level 133 mg/dL (70-99) Calcium Level 8.6 mg/dL (8.5-10.1) Assessment and Plan Assessmemt and Plan Problems Medical Problems: (1) Anxiety Status: Acute (2) COPD (chronic obstructive pulmonary disease) Status: Acute (3) Dyspnea Status: Acute Comment Review of Relevant I have reviewed the following items xin (where applicable) has been applied. Labs Laboratory Tests Test 03/09/19 16:15 03/09/19 16:45 03/10/19 16:45 03/11/19 03:45 O2 Saturation 88 % (92-99) Arterial Blood pH 7.40 (7.35-7.45) Arterial Blood pCO2 at Patient Temp 56 mmHg (35-46) Arterial Blood pO2 at Patient Temp 51 mmHg (65-108) Arterial Blood HCO3 33 mmol/L (21-28) Arterial Blood Base Excess 7 mmol/L (-3-3) FiO2 2 lpm nc White Blood Count 5.9 x10^3/uL (4.0-11.0) 5.2 x10^3/uL (4.0-11.0) Red Blood Count 4.52 x10^6/uL (3.50-5.40) 4.76 x10^6/uL (3.50-5.40) Hemoglobin 13.2 g/dL (12.0-15.5) 13.7 g/dL (12.0-15.5) Hematocrit 40.0 % (36.0-47.0) 41.8 % (36.0-47.0) Mean Corpuscular Volume 88 fL (79-100) 88 fL (79-100) Mean Corpuscular Hemoglobin 29 pg (25-35) 29 pg (25-35) Mean Corpuscular Hemoglobin Concent 33 g/dL (31-37) 33 g/dL (31-37) Red Cell Distribution Width 14.4 % (11.5-14.5) 14.4 % (11.5-14.5) Platelet Count 169 x10^3/uL (140-400) 187 x10^3/uL (140-400) Neutrophils (%) (Auto) 64 % (31-73) 87 % (31-73) Lymphocytes (%) (Auto) 24 % (24-48) 12 % (24-48) Monocytes (%) (Auto) 9 % (0-9) 1 % (0-9) Eosinophils (%) (Auto) 3 % (0-3) 0 % (0-3) Basophils (%) (Auto) 1 % (0-3) 0 % (0-3) Neutrophils # (Auto) 3.8 x10^3/uL (1.8-7.7) 4.5 x10^3/uL (1.8-7.7) Lymphocytes # (Auto) 1.4 x10^3/uL (1.0-4.8) 0.6 x10^3/uL (1.0-4.8) Monocytes # (Auto) 0.5 x10^3/uL (0.0-1.1) 0.1 x10^3/uL (0.0-1.1) Eosinophils # (Auto) 0.1 x10^3/uL (0.0-0.7) 0.0 x10^3/uL (0.0-0.7) Basophils # (Auto) 0.0 x10^3/uL (0.0-0.2) 0.0 x10^3/uL (0.0-0.2) Sodium Level 148 mmol/L (136-145) 145 mmol/L (136-145) Potassium Level 3.6 mmol/L (3.5-5.1) 3.5 mmol/L (3.5-5.1) Chloride Level 104 mmol/L (98-107) 103 mmol/L (98-107) Carbon Dioxide Level 38 mmol/L (21-32) 32 mmol/L (21-32) Anion Gap 6 (6-14) 10 (6-14) Blood Urea Nitrogen 13 mg/dL (7-20) 15 mg/dL (7-20) Creatinine 0.7 mg/dL (0.6-1.0) 0.7 mg/dL (0.6-1.0) Estimated GFR (Cockcroft-Gault) 82.0 81.8 BUN/Creatinine Ratio 19 (6-20) Glucose Level 147 mg/dL (70-99) 133 mg/dL (70-99) Calcium Level 8.9 mg/dL (8.5-10.1) 8.6 mg/dL (8.5-10.1) Total Bilirubin 0.5 mg/dL (0.2-1.0) Aspartate Amino Transf (AST/SGOT) 16 U/L (15-37) Alanine Aminotransferase (ALT/SGPT) 10 U/L (14-59) Alkaline Phosphatase 75 U/L (46-116) Troponin I Quantitative < 0.017 ng/mL (0.000-0.055) FX-Een-D-Type Natriuretic Peptide 531 pg/mL (0-124) Total Protein 6.6 g/dL (6.4-8.2) Albumin 3.8 g/dL (3.4-5.0) Albumin/Globulin Ratio 1.4 (1.0-1.7) Thyroid Stimulating Hormone (TSH) 1.015 uIU/mL (0.358-3.74) Segmented Neutrophils % 91 % (35-66) Band Neutrophils % 2 % (0-9) Lymphocytes % 5 % (24-48) Atypical Lymphocytes % (Manual) 1 % (0-0) Monocytes % 1 % (0-10) Platelet Estimate Adequate (ADEQUATE) Laboratory Tests Test 03/10/19 16:45 03/11/19 03:45 Thyroid Stimulating Hormone (TSH) 1.015 uIU/mL (0.358-3.74) White Blood Count 5.2 x10^3/uL (4.0-11.0) Red Blood Count 4.76 x10^6/uL (3.50-5.40) Hemoglobin 13.7 g/dL (12.0-15.5) Hematocrit 41.8 % (36.0-47.0) Mean Corpuscular Volume 88 fL (79-100) Mean Corpuscular Hemoglobin 29 pg (25-35) Mean Corpuscular Hemoglobin Concent 33 g/dL (31-37) Red Cell Distribution Width 14.4 % (11.5-14.5) Platelet Count 187 x10^3/uL (140-400) Neutrophils (%) (Auto) 87 % (31-73) Lymphocytes (%) (Auto) 12 % (24-48) Monocytes (%) (Auto) 1 % (0-9) Eosinophils (%) (Auto) 0 % (0-3) Basophils (%) (Auto) 0 % (0-3) Neutrophils # (Auto) 4.5 x10^3/uL (1.8-7.7) Lymphocytes # (Auto) 0.6 x10^3/uL (1.0-4.8) Monocytes # (Auto) 0.1 x10^3/uL (0.0-1.1) Eosinophils # (Auto) 0.0 x10^3/uL (0.0-0.7) Basophils # (Auto) 0.0 x10^3/uL (0.0-0.2) Segmented Neutrophils % 91 % (35-66) Band Neutrophils % 2 % (0-9) Lymphocytes % 5 % (24-48) Atypical Lymphocytes % (Manual) 1 % (0-0) Monocytes % 1 % (0-10) Platelet Estimate Adequate (ADEQUATE) Sodium Level 145 mmol/L (136-145) Potassium Level 3.5 mmol/L (3.5-5.1) Chloride Level 103 mmol/L (98-107) Carbon Dioxide Level 32 mmol/L (21-32) Anion Gap 10 (6-14) Blood Urea Nitrogen 15 mg/dL (7-20) Creatinine 0.7 mg/dL (0.6-1.0) Estimated GFR (Cockcroft-Gault) 81.8 Glucose Level 133 mg/dL (70-99) Calcium Level 8.6 mg/dL (8.5-10.1) Medications Current Medications Lorazepam (Ativan Inj) 1 mg 1X ONCE IV Last administered on 03/09/19at 16:57; Start 03/09/19 at 16:00; Stop 03/09/19 at 16:03; Status DC Albuterol/ Ipratropium (Duoneb) 3 ml 1X ONCE NEB Last administered on 03/09/19at 18:02; Start 03/09/19 at 18:00; Stop 03/09/19 at 18:01; Status DC Influenza Virus Vaccine Quadrival (Afluria Quad 2019-20 (3yr Up) Syringe) 0.5 ml ONCE ONCE VAX IM Last administered on 03/10/19at 09:23; Start 03/10/19 at 09:00; Stop 03/10/19 at 09:06; Status DC Albuterol Sulfate (Ventolin Neb Soln) 2.5 mg PRN Q4HRS PRN NEB SHORTNESS OF BREATH; Start 03/09/19 at 22:30 Albuterol/ Ipratropium (Duoneb) 3 ml RTQID NEB Last administered on 03/11/19at 08:45; Start 03/10/19 at 08:00 Alprazolam (Xanax) 1 mg HS PO Last administered on 03/10/19at 20:43; Start 03/09/19 at 23:00 Albuterol Sulfate (Ventolin Neb Soln) 2.5 mg PRN Q3HRS PRN NEB SHORTNESS OF BREATH; Start 03/10/19 at 17:45; Status UNV Alprazolam (Xanax) 1 mg HS PO ; Start 03/10/19 at 21:00; Status UNV Lisinopril (Prinivil) 40 mg DAILY PO Last administered on 03/11/19at 08:17; Start 03/11/19 at 09:00 Non-Formulary Medication (Fluticasone/ Salmeterol (Advair 250-50 Diskus)) 1 puff BID INH ; Start 03/10/19 at 21:00; Status UNV Non-Formulary Medication ([Ipratropium/ Albuterol Sulfate] ) 3 ml RTQID NEB ; Start 03/10/19 at 20:00; Status UNV Pantoprazole Sodium (Protonix) 40 mg DAILYAC PO Last administered on 03/11/19at 08:16; Start 03/11/19 at 07:30 Methylprednisolone Sodium Succinate (SOLU-Medrol 125MG VIAL) 125 mg Q8HRS IV Last administered on 03/11/19at 05:56; Start 03/10/19 at 22:00 Budesonide (Pulmicort) 0.5 mg RTBID NEB Last administered on 03/11/19at 08:46; Start 03/10/19 at 20:00 Sodium Chloride (Normal Saline Flush) 3 ml QSHIFT PRN IV AFTER MEDS AND BLOOD DRAWS; Start 03/10/19 at 18:15 Ondansetron HCl (Zofran) 4 mg PRN Q4HRS PRN IV NAUSEA/VOMITING; Start 03/10/19 at 18:15 Acetaminophen (Tylenol) 650 mg PRN Q4HRS PRN PO TEMP OVER 100.4F OR MILD PAIN; Start 03/10/19 at 18:15 Al Hydroxide/Mg Hydroxide (Mylanta Plus Xs) 30 ml PRN DAILY PRN PO HEARTBURN / GAS; Start 03/10/19 at 18:15 Clonidine HCl (Catapres) 0.1 mg PRN Q6HRS PRN PO SBP>160 OR DBP>90 Last administered on 03/10/19at 20:43; Start 03/10/19 at 18:15 Docusate Sodium (Colace) 100 mg PRN BID PRN PO CONSTIPATION; Start 03/10/19 at 18:15 Albuterol/ Ipratropium (Duoneb) 3 ml Q4HRS NEB ; Start 03/10/19 at 18:15 Guaifenesin (Robitussin) 200 mg PRN Q4HRS PRN PO COUGH; Start 03/10/19 at 18:15 Enoxaparin Sodium (Lovenox 40mg Syringe) 40 mg Q24H SQ Last administered on 03/10/19at 18:36; Start 03/10/19 at 19:00 Alprazolam (Xanax) 0.5 mg 1X ONCE PO ; Start 03/10/19 at 19:15; Stop 03/10/19 at 19:24; Status DC Amlodipine Besylate (Norvasc) 5 mg DAILY PO Last administered on 03/11/19at 08:17; Start 03/10/19 at 23:00 Albuterol/ Ipratropium (Duoneb) 3 ml STK-MED ONCE .ROUTE ; Start 03/10/19 at 23:47; Stop 03/10/19 at 23:47; Status DC Alprazolam (Xanax) 0.5 mg 1X ONCE PO Last administered on 03/11/19at 08:17; Start 03/11/19 at 09:00; Stop 03/11/19 at 09:01; Status DC Active Scripts Active [Pantoprazole] 40 MG Tablet.dr 40 Mg PO DAILY07 14 Days Lisinopril 40 Mg Tablet 40 Mg PO DAILY 30 Days Prednisone (Prednisone) 10 Mg Tablet 10 Mg PO UD Take 3 tablets by mouth twice a day for 3 days, then take 2 tablets by mouth twice a day for 3 days, then take 1 tablet by mouth twice a day for 3 days, then take 1 tablet by mouth daily x 3 days, then stop. Proair Hfa Inhaler (Albuterol Sulfate) 8.5 Gm Hfa.aer.ad 2 Puff IH PRN Q4-6HRS [Ipratropium/Albuterol Sulfate] 3 ML Nebu 3 Ml NEB RTQID Advair 250-50 Diskus (Fluticasone/Salmeterol) 1 Puff Puff 1 Puff INH BID Reported Xanax (Alprazolam) 1 Mg Tablet 1 Tab PO HS Vitals/I & O Vital Sign - Last 24 Hours 03/10/19 03/10/19 03/10/19 03/10/19 11:22 11:59 15:53 15:59 Temp 98.0 97.9 98.0 97.9 Pulse 63 69 Resp 18 18 B/P (MAP) 125/62 (83) 155/82 (106) Pulse Ox 96 96 94 O2 Delivery Nasal Cannula Nasal Cannula Nasal Cannula Nasal Cannula O2 Flow Rate 2.0 2.0 2.0 2.0 03/10/19 03/10/19 03/10/19 03/10/19 19:20 20:00 20:01 20:01 Temp 97.8 97.8 Pulse 90 Resp 16 B/P (MAP) 176/96 (122) Pulse Ox 91 95 95 O2 Delivery Nasal Cannula Nasal Cannula Nasal Cannula Nasal Cannula O2 Flow Rate 2.0 2.0 2.0 2.0 03/10/19 03/10/19 03/10/19 03/11/19 20:43 23:00 23:28 03:43 Temp 97.3 97.4 97.3 97.4 Pulse 90 62 62 61 Resp 20 16 B/P (MAP) 176/96 130/55 130/55 (80) 140/56 (84) Pulse Ox 97 93 O2 Delivery Nasal Cannula Nasal Cannula O2 Flow Rate 2.0 2.0 03/11/19 03/11/19 03/11/19 03/11/19 07:32 08:17 08:17 08:47 Temp 97.5 97.5 Pulse 96 96 96 Resp 20 B/P (MAP) 149/86 (107) 149/86 149/86 Pulse Ox 95 93 O2 Delivery Nasal Cannula Nasal Cannula O2 Flow Rate 2.0 2.0 03/11/19 08:48 Pulse Ox 93 O2 Delivery Nasal Cannula O2 Flow Rate 2.0 Intake and Output 03/10/19 03/10/19 03/11/19 15:00 23:00 07:00 Intake Total 320 ml 180 ml 250 ml Balance 320 ml 180 ml 250 ml YOANDY GUTIERREZ MD Mar 11, 2019 09:06
--- NOTE | 2019-03-11 10:26 | RAD ---
Examination: CT CHEST WO CONTRAST History: Pneumonia Comparison/Correlation: CTA chest 10/01/2014, CT chest with contrast 02/02/2015, 02/06/2019. Chest x-ray exam Findings: Axial images of the chest were obtained without contrast. Sagittal and coronal reformatted images were provided. The tracheobronchial tree is unremarkable. Minimal pericardial effusion noted. No pleural effusion. Mild centrilobular emphysematous along the lung ruiz. No enlarged thoracic lymph nodes. No suspicious infiltrates or nodules. Left upper lobe anteriorly located 0.4 cm diameter nodular density appears reported on 02/02/2015 is unchanged. Calcified granulomatous are present. No significant distention of the thoracic aorta. Calcific involvement of the distal thoracic aorta noted. Mild scattered coronary arterial calcification noted. Partially visualized upper abdomen. Cholecystectomy noted. Impression: Mild centrilobular emphysematous involvement of the lungs ruiz. No suspicious pulmonary nodule, infiltrate or enlarged lymph nodes. PQRS Compliance Statement: One or more of the following individualized dose reduction techniques were utilized for this examination: 1. Automated exposure control 2. Adjustment of the mA and/or kV according to patient size 3. Use of iterative reconstruction technique Electronically signed by: Wisam Perla MD (03/11/2019 10:22 AM) [facility]
--- NOTE | 2019-03-11 11:04 | PDOC2 ---
CARDIAC CONSULT DATE OF CONSULT Date of Consult DATE: 03/11/19 TIME: 10:50 REASON FOR CONSULT Reason for Consult: CHF REFERRING PHYSICIAN Referring Physician: Fullbright SOURCE Source: Chart review, Patient HISTORY OF PRESENT ILLNESS HISTORY OF PRESENT ILLNESS This is a pleasant 74 yo female admitted for complains of shortness of breath. She told me that she is always SOA and her children told her to come to ED. Rep orts that she is still waiting for her nebulizer and could not obtain until she is seen in the office. No PND nor orthopnea. Denies any chest pain or palpitations. She has significant COPD and has been having nonproductive cough but no fever or chills. No leg swelling. Denies any CAD or any arrhythmias. PAST MEDICAL HISTORY Cardiovascular: HTN Pulmonary: COPD (O2 dependent) Psych: Anxiety Musculoskeletal: Osteoarthritis Infectious disease: Herpes zoster ENT: Other (cataract) Renal/: Other (nephrolithiasis) PAST SURGICAL HISTORY Past Surgical History: Appendectomy, Cholecystectomy, Hysterectomy FAMILY HISTORY Family History: Heart Disease SOCIAL HISTORY Smoke: Quit ALCOHOL: none Drugs: None Lives: with Family CURRENT MEDICATIONS CURRENT MEDICATIONS Current Medications Medications (Trade) Dose Ordered Sig/Low Route PRN Reason Start Time Stop Time Status Last Admin Dose Admin Lisinopril (Prinivil) 40 mg DAILY PO 03/11/19 09:00 03/11/19 08:17 Pantoprazole Sodium (Protonix) 40 mg DAILYAC PO 03/11/19 07:30 03/11/19 08:16 Methylprednisolone Sodium Succinate (SOLU-Medrol 125MG VIAL) 125 mg Q8HRS IV 03/10/19 22:00 03/11/19 10:35 DC 03/11/19 05:56 Budesonide (Pulmicort) 0.5 mg RTBID NEB 03/10/19 20:00 03/11/19 08:46 Clonidine HCl (Catapres) 0.1 mg PRN Q6HRS PRN PO SBP>160 OR DBP>90 03/10/19 18:15 03/10/19 20:43 Enoxaparin Sodium (Lovenox 40mg Syringe) 40 mg Q24H SQ 03/10/19 19:00 03/10/19 18:36 Amlodipine Besylate (Norvasc) 5 mg DAILY PO 03/10/19 23:00 03/11/19 08:17 Alprazolam (Xanax) 0.5 mg 1X ONCE PO 03/11/19 09:00 03/11/19 09:01 DC 03/11/19 08:17 ALLERGIES ALLERGIES: Coded Allergies: Penicillins (Verified Allergy, Intermediate, 03/14/18) ROS Review of System 14 point ROS evaluated with pertinent positives noted per HPI VITALS/I&O VITALS/I&O: Vital Signs Date Time Temp Pulse Resp B/P (MAP) Pulse Ox O2 Delivery O2 Flow Rate FiO2 03/11/19 08:48 93 Nasal Cannula 2.0 03/11/19 08:17 96 149/86 03/11/19 07:32 97.5 20 97.5 I & O 03/10/19 03/10/19 03/11/19 15:00 23:00 07:00 Intake Total 320 ml 180 ml 250 ml Balance 320 ml 180 ml 250 ml LABS Lab: Laboratory Tests Test 03/10/19 16:45 03/11/19 03:45 Thyroid Stimulating Hormone (TSH) 1.015 uIU/mL (0.358-3.74) White Blood Count 5.2 x10^3/uL (4.0-11.0) Red Blood Count 4.76 x10^6/uL (3.50-5.40) Hemoglobin 13.7 g/dL (12.0-15.5) Hematocrit 41.8 % (36.0-47.0) Mean Corpuscular Volume 88 fL (79-100) Mean Corpuscular Hemoglobin 29 pg (25-35) Mean Corpuscular Hemoglobin Concent 33 g/dL (31-37) Red Cell Distribution Width 14.4 % (11.5-14.5) Platelet Count 187 x10^3/uL (140-400) Neutrophils (%) (Auto) 87 % (31-73) H Lymphocytes (%) (Auto) 12 % (24-48) L Monocytes (%) (Auto) 1 % (0-9) Eosinophils (%) (Auto) 0 % (0-3) Basophils (%) (Auto) 0 % (0-3) Neutrophils # (Auto) 4.5 x10^3/uL (1.8-7.7) Lymphocytes # (Auto) 0.6 x10^3/uL (1.0-4.8) L Monocytes # (Auto) 0.1 x10^3/uL (0.0-1.1) Eosinophils # (Auto) 0.0 x10^3/uL (0.0-0.7) Basophils # (Auto) 0.0 x10^3/uL (0.0-0.2) Segmented Neutrophils % 91 % (35-66) H Band Neutrophils % 2 % (0-9) Lymphocytes % 5 % (24-48) L Atypical Lymphocytes % (Manual) 1 % (0-0) H Monocytes % 1 % (0-10) Platelet Estimate Adequate (ADEQUATE) Sodium Level 145 mmol/L (136-145) Potassium Level 3.5 mmol/L (3.5-5.1) Chloride Level 103 mmol/L (98-107) Carbon Dioxide Level 32 mmol/L (21-32) Anion Gap 10 (6-14) Blood Urea Nitrogen 15 mg/dL (7-20) Creatinine 0.7 mg/dL (0.6-1.0) Estimated GFR (Cockcroft-Gault) 81.8 Glucose Level 133 mg/dL (70-99) H Calcium Level 8.6 mg/dL (8.5-10.1) Laboratory Tests 03/11/19 03:45 Laboratory Tests 03/11/19 03:45 ECHOCARDIOGRAM ECHOCARDIOGRAM <Conclusion> The left ventricle is normal size. Left ventricle systolic function is normal. The Ejection Fraction is 60-65%. Tissue Doppler imaging reveals mild left ventricular diastolic dysfunction. Transmitral Doppler flow pattern is Grade I-abnormal relaxation pattern. There is no significant aortic valvular stenosis. Doppler and Color Flow revealed no significant aortic regurgitation. Doppler and Color Flow revealed trace mitral valve regurgitation. Doppler and Color Flow revealed trace tricuspid regurgitation. The PA pressure was estimated at 14 mmHg. DATE: 04/15/16 1445 STRESS TEST STRESS TEST Conclusion 1. Regadenoson cardioisotope stress test did not show any evidence of ischemia or infarct. 2. Normal left ventricular systolic function with ejection fraction calculated at 72%. 3. Low risk for cardiac events. DATE: 02/02/16 1344 ASSESSMENT/PLAN ASSESSMENT/PLAN 1. AECOPD: defer to pulmonary 2. Suspect Chronic diastolic CHF: compensated. dyspnea due to COPD 3. HTN: controlled 4. Chronic RBBB Recommendations 1. Nothing further if TTE is unremarkable for significant changes 2. Follow pulmonary input. 3. Continue current BP regimen [employer] Mar 11, 2019 11:04
[2019-03-11 11:18] VITALS: BP 125/80
--- NOTE | 2019-03-11 11:35 | CONS ---
DATE OF CONSULTATION: 03/11/2019 PULMONARY CONSULTATION ATTENDING PHYSICIAN: Coby Cano MD. REASON FOR CONSULTATION: Dyspnea. HISTORY OF PRESENT ILLNESS: The patient is a 74-year-old female who has oxygen-dependent COPD. She presented to the hospital with increased dyspnea. She said she had a cough, which is clear of any sputum. No fever, no chills, no headaches, no chest pains. No nausea, vomiting, no diarrhea. No leg edema. No focal weakness. Her chest x-ray on admission was reviewed and it shows no definite consolidation. She also had a CT chest, which showed evidence of emphysema. No definite consolidation observed. The patient saying that she is on 4 liters at home. She is currently on 2 liters and sats are in the low 90s. PAST MEDICAL HISTORY: History of chronic obstructive pulmonary disease, which is oxygen dependent; history of hypertension, anxiety, shingles. PAST SURGICAL HISTORY: Appendectomy and cholecystectomy and also cyst from her breast. SOCIAL HISTORY: Quit tobacco a year ago, before that smoked for about 40+ years. REVIEW OF SYSTEMS: Twelve-point system obtained. Pertinent positives discussed in my history of present illness, otherwise noncontributory. All systems that were negative were reviewed as well. FAMILY HISTORY: Chronic bronchitis, and hypertension. ALLERGIES: PENICILLIN. CURRENT MEDICATIONS: Reviewed as listed in the MRAD including IV steroids, Lovenox for DVT prophylaxis and DuoNebs. PHYSICAL EXAMINATION: VITAL SIGNS: Reviewed. Pulse ox 93% on 2 liters, afebrile. HEENT: Sclerae nonicteric. NECK: Supple. LUNGS: With diminished breath sounds with poor air entry. CARDIOVASCULAR: Regular rate. ABDOMEN: Soft, nontender. EXTREMITIES: With no pitting edema. LABORATORY DATA: Reviewed. White cell count 5.2, hemoglobin 13.7, platelets are 187. ABGs with a pH of 7.40, pCO2 of 56 and a pO2 of 51 on 2 liters. IMPRESSION: 1. Dyspnea secondary to acute exacerbation of chronic obstructive pulmonary disease in a patient who has oxygen-dependent chronic obstructive pulmonary disease and no longer smokes cigarettes. 2. No definite consolidation seen on the chest x-ray. RECOMMENDATIONS: 1. Continue with present oxygen to keep saturation 92% and above. 2. Continue DuoNeb along with Pulmicort. 3. Continue with steroids and start tapering the dose. 4. Anticipate hospitalization for 24-48 hours. We will follow along with you. DILLON ARZATE MD DR: FUAD/marcia JOB#: [id number] / [id number]
[2019-03-11 15:10] VITALS: BP 141/92
--- NOTE | 2019-03-11 15:34 | NUR ---
SW consulted for home health and to speak with pt's children regarding services. Chart reviewed and discussed with RN. Pt lives at home and has home 02 through [employer]. SW spoke with pt's son, Huy and daughter, Judy via phone [phone], and they would like pt to have home health. They are agreeable to meet with Nurse navigator from [facility]. They stated pt had refused in the past but they would talk with her when they visit today as she will benefit from Skilled home health services. SW will continue to follow.
[2019-03-11] MEDS: ENOXAPARIN 40 MG/0.4 ML SYRINGE. SQ SCH (17:59)
[2019-03-11 19:52] VITALS: BP 133/66
[2019-03-11] MEDS: ALPRAZolam 1 MG TABLET PO SCH (21:00)
[2019-03-11 23:56] VITALS: BP 160/70
[2019-03-12] MEDS: IPRATRPIUM/ALBUTEROL 0.5/2.5MG 3 ML NEBU. NEB SCH ×3 (02:23→12:30)
[2019-03-12 03:00] VITALS: BP 154/69
[2019-03-12] MEDS: methylPREDNISolone SOD SUCC PF 125 MG/2 ML VIAL. IV SCH ×2 (06:34→14:00)
[2019-03-12] MEDS: BUDESONIDE 0.5 MG/2 ML NEBU. NEB SCH (07:56)
[2019-03-12 07:59] VITALS: BP 133/57
[2019-03-12 08:02] VITALS: BP 133/57
[2019-03-12] MEDS: amLODIPine BESYLATE 5 MG TABLET PO SCH (08:35)
[2019-03-12] MEDS: PANTOPRAZOLE 40 MG TABLET.DR. PO SCH (08:35)
[2019-03-12] MEDS: LISINOPRIL 20 MG TABLET PO SCH (08:36)
--- NOTE | 2019-03-12 10:06 | PDOC ---
PROGRESS NOTES History of Present Illness History of Present Illness VTE Prophylaxis Ordered VTE Prophylaxis Devices: Yes VTE Pharmacological Prophylaxi: Yes DISCHARGE DX Assessment/Plan impression acute SEVERE copd exac acute severe hypercapnic , hypoxic respiratory failure in 2014 ct chest , Multiple prominent appearing mediastinal lymph nodes are identified with the largest measuring 1.9 centimeters in the pretracheal region grossly appears similar to prior exam. The subcarinal lymph node measures 2.4 centimeters in transverse dimension. on CT CHEST 03/11 Mild centrilobular emphysematous involvement of the lungs ruiz.No suspicious pulmonary nodule, infiltrate or enlarged lymph nodes. morbid obesity uncontrolled hypertension tobacco abuse hx DYSPNEA ON EXERTION plan admit tele PO steroid taper pulm consult REVIEWED home meds dvt prophylaxis ct chest REVIEWED echo cardiology consult, echo TSH BIPAP support with sleep 38 MIN PT EXAM D/C PLANNING, CHART REVIEW, > 50% OF TIME SPENT WITH EXAM, CHART REVIEW, PT CARE COORDINATION Vitals Vitals Vital Signs Date Time Temp Pulse Resp B/P (MAP) Pulse Ox O2 Delivery O2 Flow Rate FiO2 03/12/19 08:36 74 133/57 03/12/19 08:02 97.6 20 99 Nasal Cannula 2.0 97.6 Physical Exam General: Alert, Oriented X3, Cooperative, No acute distress Heart: Regular rate, Other (MILD TACHY RARE 96) Lungs: Clear Abdomen: Normal bowel sounds, Soft, No tenderness Extremities: No cyanosis Skin: No significant lesion Assessment and Plan Assessmemt and Plan Problems Medical Problems: (1) Anxiety Status: Acute (2) COPD (chronic obstructive pulmonary disease) Status: Acute (3) Dyspnea Status: Acute Comment Review of Relevant I have reviewed the following items xin (where applicable) has been applied. Labs Laboratory Tests Test 03/10/19 16:45 03/11/19 03:45 Thyroid Stimulating Hormone (TSH) 1.015 uIU/mL (0.358-3.74) White Blood Count 5.2 x10^3/uL (4.0-11.0) Red Blood Count 4.76 x10^6/uL (3.50-5.40) Hemoglobin 13.7 g/dL (12.0-15.5) Hematocrit 41.8 % (36.0-47.0) Mean Corpuscular Volume 88 fL (79-100) Mean Corpuscular Hemoglobin 29 pg (25-35) Mean Corpuscular Hemoglobin Concent 33 g/dL (31-37) Red Cell Distribution Width 14.4 % (11.5-14.5) Platelet Count 187 x10^3/uL (140-400) Neutrophils (%) (Auto) 87 % (31-73) Lymphocytes (%) (Auto) 12 % (24-48) Monocytes (%) (Auto) 1 % (0-9) Eosinophils (%) (Auto) 0 % (0-3) Basophils (%) (Auto) 0 % (0-3) Neutrophils # (Auto) 4.5 x10^3/uL (1.8-7.7) Lymphocytes # (Auto) 0.6 x10^3/uL (1.0-4.8) Monocytes # (Auto) 0.1 x10^3/uL (0.0-1.1) Eosinophils # (Auto) 0.0 x10^3/uL (0.0-0.7) Basophils # (Auto) 0.0 x10^3/uL (0.0-0.2) Segmented Neutrophils % 91 % (35-66) Band Neutrophils % 2 % (0-9) Lymphocytes % 5 % (24-48) Atypical Lymphocytes % (Manual) 1 % (0-0) Monocytes % 1 % (0-10) Platelet Estimate Adequate (ADEQUATE) Sodium Level 145 mmol/L (136-145) Potassium Level 3.5 mmol/L (3.5-5.1) Chloride Level 103 mmol/L (98-107) Carbon Dioxide Level 32 mmol/L (21-32) Anion Gap 10 (6-14) Blood Urea Nitrogen 15 mg/dL (7-20) Creatinine 0.7 mg/dL (0.6-1.0) Estimated GFR (Cockcroft-Gault) 81.8 Glucose Level 133 mg/dL (70-99) Calcium Level 8.6 mg/dL (8.5-10.1) Medications Current Medications Lorazepam (Ativan Inj) 1 mg 1X ONCE IV Last administered on 03/09/19at 16:57; Start 03/09/19 at 16:00; Stop 03/09/19 at 16:03; Status DC Albuterol/ Ipratropium (Duoneb) 3 ml 1X ONCE NEB Last administered on 03/09/19at 18:02; Start 03/09/19 at 18:00; Stop 03/09/19 at 18:01; Status DC Influenza Virus Vaccine Quadrival (Afluria Quad 2019-20 (3yr Up) Syringe) 0.5 ml ONCE ONCE VAX IM Last administered on 03/10/19at 09:23; Start 03/10/19 at 09:00; Stop 03/10/19 at 09:06; Status DC Albuterol Sulfate (Ventolin Neb Soln) 2.5 mg PRN Q4HRS PRN NEB SHORTNESS OF BREATH; Start 03/09/19 at 22:30 Albuterol/ Ipratropium (Duoneb) 3 ml RTQID NEB Last administered on 03/11/19at 08:45; Start 03/10/19 at 08:00; Stop 03/11/19 at 15:07; Status DC Alprazolam (Xanax) 1 mg HS PO Last administered on 03/10/19at 20:43; Start at 23:00 Albuterol Sulfate (Ventolin Neb Soln) 2.5 mg PRN Q3HRS PRN NEB SHORTNESS OF BREATH; Start 03/10/19 at 17:45; Status UNV Alprazolam (Xanax) 1 mg HS PO ; Start 03/10/19 at 21:00; Status UNV Lisinopril (Prinivil) 40 mg DAILY PO Last administered on 03/12/19at 08:36; Start 03/11/19 at 09:00 Non-Formulary Medication (Fluticasone/ Salmeterol (Advair 250-50 Diskus)) 1 puff BID INH ; Start 03/10/19 at 21:00; Status UNV Non-Formulary Medication ([Ipratropium/ Albuterol Sulfate] ) 3 ml RTQID NEB ; Start 03/10/19 at 20:00; Status UNV Pantoprazole Sodium (Protonix) 40 mg DAILYAC PO Last administered on 03/12/19at 08:35; Start 03/11/19 at 07:30 Methylprednisolone Sodium Succinate (SOLU-Medrol 125MG VIAL) 125 mg Q8HRS IV Last administered on 03/11/19at 05:56; Start 03/10/19 at 22:00; Stop 03/11/19 at 10:35; Status DC Budesonide (Pulmicort) 0.5 mg RTBID NEB Last administered on 03/12/19at 07:56; Start 03/10/19 at 20:00 Sodium Chloride (Normal Saline Flush) 3 ml QSHIFT PRN IV AFTER MEDS AND BLOOD DRAWS; Start 03/10/19 at 18:15 Ondansetron HCl (Zofran) 4 mg PRN Q4HRS PRN IV NAUSEA/VOMITING; Start 03/10/19 at 18:15 Acetaminophen (Tylenol) 650 mg PRN Q4HRS PRN PO TEMP OVER 100.4F OR MILD PAIN; Start 03/10/19 at 18:15 Al Hydroxide/Mg Hydroxide (Mylanta Plus Xs) 30 ml PRN DAILY PRN PO HEARTBURN / GAS; Start 03/10/19 at 18:15 Clonidine HCl (Catapres) 0.1 mg PRN Q6HRS PRN PO SBP>160 OR DBP>90 Last administered on 03/10/19at 20:43; Start 03/10/19 at 18:15 Docusate Sodium (Colace) 100 mg PRN BID PRN PO CONSTIPATION; Start 03/10/19 at 18:15 Albuterol/ Ipratropium (Duoneb) 3 ml Q4HRS NEB Last administered on 03/12/19at 07:56; Start 03/10/19 at 18:15 Guaifenesin (Robitussin) 200 mg PRN Q4HRS PRN PO COUGH; Start 03/10/19 at 18:15 Enoxaparin Sodium (Lovenox 40mg Syringe) 40 mg Q24H SQ Last administered on 03/11/19at 17:59; Start 03/10/19 at 19:00 Alprazolam (Xanax) 0.5 mg 1X ONCE PO ; Start 03/10/19 at 19:15; Stop 03/10/19 at 19:24; Status DC Amlodipine Besylate (Norvasc) 5 mg DAILY PO Last administered on 03/12/19at 08:35; Start 03/10/19 at 23:00 Albuterol/ Ipratropium (Duoneb) 3 ml STK-MED ONCE .ROUTE ; Start 03/10/19 at 23:47; Stop 03/10/19 at 23:47; Status DC Alprazolam (Xanax) 0.5 mg 1X ONCE PO Last administered on 03/11/19at 08:17; Start 03/11/19 at 09:00; Stop 03/11/19 at 09:01; Status DC Methylprednisolone Sodium Succinate (SOLU-Medrol 125MG VIAL) 60 mg Q8HRS IV Last administered on 03/12/19at 06:34; Start 03/11/19 at 14:00 Active Scripts Active [Pantoprazole] 40 MG Tablet.dr 40 Mg PO DAILY07 14 Days Lisinopril 40 Mg Tablet 40 Mg PO DAILY 30 Days Prednisone (Prednisone) 10 Mg Tablet 10 Mg PO UD Take 3 tablets by mouth twice a day for 3 days, then take 2 tablets by mouth twice a day for 3 days, then take 1 tablet by mouth twice a day for 3 days, then take 1 tablet by mouth daily x 3 days, then stop. Proair Hfa Inhaler (Albuterol Sulfate) 8.5 Gm Hfa.aer.ad 2 Puff IH PRN Q4-6HRS [Ipratropium/Albuterol Sulfate] 3 ML Nebu 3 Ml NEB RTQID Advair 250-50 Diskus (Fluticasone/Salmeterol) 1 Puff Puff 1 Puff INH BID Reported Xanax (Alprazolam) 1 Mg Tablet 1 Tab PO HS Vitals/I & O Vital Sign - Last 24 Hours 03/11/19 03/11/19 03/11/19 03/11/19 11:18 15:10 15:15 19:52 Temp 97.4 97.4 97.5 97.4 97.4 97.5 Pulse 88 102 88 Resp 20 20 20 B/P (MAP) 125/80 (95) 141/92 (108) 133/66 (88) Pulse Ox 93 94 93 96 O2 Delivery Nasal Cannula Nasal Cannula Nasal Cannula Nasal Cannula O2 Flow Rate 2.0 2.0 2.0 2.0 03/11/19 03/11/19 03/11/19 03/11/19 20:05 20:28 23:35 23:56 Temp 97.5 97.5 Pulse 104 Resp 20 B/P (MAP) 160/70 (100) Pulse Ox 97 94 O2 Delivery Nasal Cannula Nasal Cannula Nasal Cannula Nasal Cannula O2 Flow Rate 2.0 2.0 2.0 2.0 03/12/19 03/12/19 03/12/19 03/12/19 03:00 07:57 07:59 08:02 Temp 97.6 97.6 97.6 97.6 97.6 97.6 Pulse 98 74 74 Resp 20 20 20 B/P (MAP) 154/69 (97) 133/57 (82) 133/57 (82) Pulse Ox 94 96 99 99 O2 Delivery Nasal Cannula Nasal Cannula Nasal Cannula Nasal Cannula O2 Flow Rate 2.0 2.0 2.0 2.0 03/12/19 03/12/19 08:35 08:36 Pulse 74 74 B/P (MAP) 133/57 133/57 Intake and Output 03/11/19 03/11/19 03/12/19 15:00 23:00 07:00 Intake Total 500 ml 200 ml Balance 500 ml 200 ml YOANDY GUTEIRREZ MD Mar 12, 2019 10:06
--- NOTE | 2019-03-12 10:18 | PDOC ---
PULMONARY PROGRESS NOTES Subjective wants to go home today Vitals Vital Signs Date Time Temp Pulse Resp B/P (MAP) Pulse Ox O2 Delivery O2 Flow Rate FiO2 03/12/19 08:36 74 133/57 03/12/19 08:02 97.6 20 99 Nasal Cannula 2.0 97.6 General: Alert, No acute distress Lungs: Clear Cardiovascular: S1 Abdomen: Soft Neuro Exam: Alert Extremities: No Edema Skin: Warm Labs Laboratory Tests Test 03/10/19 16:45 03/11/19 03:45 Thyroid Stimulating Hormone (TSH) 1.015 uIU/mL (0.358-3.74) White Blood Count 5.2 x10^3/uL (4.0-11.0) Red Blood Count 4.76 x10^6/uL (3.50-5.40) Hemoglobin 13.7 g/dL (12.0-15.5) Hematocrit 41.8 % (36.0-47.0) Mean Corpuscular Volume 88 fL (79-100) Mean Corpuscular Hemoglobin 29 pg (25-35) Mean Corpuscular Hemoglobin Concent 33 g/dL (31-37) Red Cell Distribution Width 14.4 % (11.5-14.5) Platelet Count 187 x10^3/uL (140-400) Neutrophils (%) (Auto) 87 % (31-73) Lymphocytes (%) (Auto) 12 % (24-48) Monocytes (%) (Auto) 1 % (0-9) Eosinophils (%) (Auto) 0 % (0-3) Basophils (%) (Auto) 0 % (0-3) Neutrophils # (Auto) 4.5 x10^3/uL (1.8-7.7) Lymphocytes # (Auto) 0.6 x10^3/uL (1.0-4.8) Monocytes # (Auto) 0.1 x10^3/uL (0.0-1.1) Eosinophils # (Auto) 0.0 x10^3/uL (0.0-0.7) Basophils # (Auto) 0.0 x10^3/uL (0.0-0.2) Segmented Neutrophils % 91 % (35-66) Band Neutrophils % 2 % (0-9) Lymphocytes % 5 % (24-48) Atypical Lymphocytes % (Manual) 1 % (0-0) Monocytes % 1 % (0-10) Platelet Estimate Adequate (ADEQUATE) Sodium Level 145 mmol/L (136-145) Potassium Level 3.5 mmol/L (3.5-5.1) Chloride Level 103 mmol/L (98-107) Carbon Dioxide Level 32 mmol/L (21-32) Anion Gap 10 (6-14) Blood Urea Nitrogen 15 mg/dL (7-20) Creatinine 0.7 mg/dL (0.6-1.0) Estimated GFR (Cockcroft-Gault) 81.8 Glucose Level 133 mg/dL (70-99) Calcium Level 8.6 mg/dL (8.5-10.1) Medications Active Scripts Medications Dose Route/Sig Max Daily Dose Days Date Category Dose Instructions Xanax (Alprazolam) 1 Mg Tablet 1 Tab PO HS 03/09/19 Reported [Pantoprazole] 40 MG Tablet.dr 40 Mg PO DAILY07 14 03/15/18 Rx Lisinopril 40 Mg Tablet 40 Mg PO DAILY 30 03/15/18 Rx Prednisone (Prednisone) 10 Mg Tablet 10 Mg PO UD 10/02/14 Rx Take 3 tablets by mouth twice a day for 3 days, then take 2 tablets by mouth twice a day for 3 days, then take 1 tablet by mouth twice a day for 3 days, then take 1 tablet by mouth daily x 3 days, then stop. Proair Hfa Inhaler (Albuterol Sulfate) 8.5 Gm Hfa.aer.ad 2 Puff IH PRN Q4-6HRS 10/02/14 Rx [Ipratropium/Albuterol Sulfate] 3 ML Nebu 3 Ml NEB RTQID 10/02/14 Rx Advair 250-50 Diskus (Fluticasone/Salmeterol) 1 Puff Puff 1 Puff INH BID 10/02/14 Rx Impression . 1. Dyspnea secondary to acute exacerbation of chronic obstructive pulmonary disease in a patient who has oxygen-dependent chronic obstructive pulmonary disease and no longer smokes cigarettes. 2. No definite consolidation seen on the chest x-ray. Plan . 1. Continue with present oxygen to keep saturation 92% and above. 2. Continue DuoNeb along with Pulmicort. 3. Continue with steroids tapering 4. ok with dc home today DILLON ARZATE MD Mar 12, 2019 10:18
--- NOTE | 2019-03-12 11:20 | PDOC3 ---
Discharge Summary Date of Admission: Mar 10, 2019 Date of Discharge: Mar 12, 2019 Follow-Up: 3-5 days Admitting Diagnosis comment: DISCHARGE DX Assessment/Plan impression acute SEVERE copd exac acute severe hypercapnic , hypoxic respiratory failure in 2014 ct chest , Multiple prominent appearing mediastinal lymph nodes are identified with the largest measuring 1.9 centimeters in the pretracheal region grossly appears similar to prior exam. The subcarinal lymph node measures 2.4 centimeters in transverse dimension. on CT CHEST 03/11 Mild centrilobular emphysematous involvement of the lungs ruiz.No suspicious pulmonary nodule, infiltrate or enlarged lymph nodes. morbid obesity uncontrolled hypertension tobacco abuse hx DYSPNEA ON EXERTION plan admit tele PO steroid taper pulm consult REVIEWED home meds dvt prophylaxis ct chest REVIEWED echo cardiology consult, echo TSH BIPAP support with sleep 38 MIN PT EXAM D/C PLANNING, CHART REVIEW, > 50% OF TIME SPENT WITH EXAM, CHART REVIEW, PT CARE COORDINATION Vitals Vitals Vital Signs Date Time Temp Pulse Resp B/P (MAP) Pulse Ox O2 Delivery O2 Flow Rate FiO2 03/12/19 08:36 74 133/57 03/12/19 08:02 97.6 20 99 Nasal Cannula 2.0 97.6 Physical Exam General: Alert, Oriented X3, Cooperative, No acute distress Heart: Regular rate, Other Lungs: Clear Abdomen: Normal bowel sounds, Soft, No tenderness Extremities: No cyanosis Skin: No significant lesion FINAL DIAGNOSIS Problems Medical Problems: (1) Anxiety Status: Acute (2) COPD (chronic obstructive pulmonary disease) Status: Acute (3) Dyspnea Status: Acute Brief Hospital Course Ms. Guzmán is a 74 old [sFEMALE] who presented with [COPD EXAC ] CONDITION AT DISCHARGE: Improved Discharge Medications Current Medications Lorazepam (Ativan Inj) 1 mg 1X ONCE IV Last administered on 03/09/19at 16:57; Start 03/09/19 at 16:00; Stop 03/09/19 at 16:03; Status DC Albuterol/ Ipratropium (Duoneb) 3 ml 1X ONCE NEB Last administered on 03/09/19at 18:02; Start 03/09/19 at 18:00; Stop 03/09/19 at 18:01; Status DC Influenza Virus Vaccine Quadrival (Afluria Quad 2019-20 (3yr Up) Syringe) 0.5 ml ONCE ONCE VAX IM Last administered on 03/10/19at 09:23; Start 03/10/19 at 09:00; Stop 03/10/19 at 09:06; Status DC Albuterol Sulfate (Ventolin Neb Soln) 2.5 mg PRN Q4HRS PRN NEB SHORTNESS OF BREATH; Start 03/09/19 at 22:30 Albuterol/ Ipratropium (Duoneb) 3 ml RTQID NEB Last administered on 03/11/19at 08:45; Start 03/10/19 at 08:00; Stop 03/11/19 at 15:07; Status DC Alprazolam (Xanax) 1 mg HS PO Last administered on 03/10/19at 20:43; Start 03/09/19 at 23:00 Albuterol Sulfate (Ventolin Neb Soln) 2.5 mg PRN Q3HRS PRN NEB SHORTNESS OF B REATH; Start 03/10/19 at 17:45; Status UNV Alprazolam (Xanax) 1 mg HS PO ; Start 03/10/19 at 21:00; Status UNV Lisinopril (Prinivil) 40 mg DAILY PO Last administered on 03/12/19at 08:36; Start 03/11/19 at 09:00 Non-Formulary Medication (Fluticasone/ Salmeterol (Advair 250-50 Diskus)) 1 puff BID INH ; Start 03/10/19 at 21:00; Status UNV Non-Formulary Medication ([Ipratropium/ Albuterol Sulfate] ) 3 ml RTQID NEB ; Start 03/10/19 at 20:00; Status UNV Pantoprazole Sodium (Protonix) 40 mg DAILYAC PO Last administered on 03/12/19at 08:35; Start 03/11/19 at 07:30 Methylprednisolone Sodium Succinate (SOLU-Medrol 125MG VIAL) 125 mg Q8HRS IV Last administered on 03/11/19at 05:56; Start 03/10/19 at 22:00; Stop 03/11/19 at 10:35; Status DC Budesonide (Pulmicort) 0.5 mg RTBID NEB Last administered on 03/12/19at 07:56; Start 03/10/19 at 20:00 Sodium Chloride (Normal Saline Flush) 3 ml QSHIFT PRN IV AFTER MEDS AND BLOOD DRAWS; Start 03/10/19 at 18:15 Ondansetron HCl (Zofran) 4 mg PRN Q4HRS PRN IV NAUSEA/VOMITING; Start 03/10/19 at 18:15 Acetaminophen (Tylenol) 650 mg PRN Q4HRS PRN PO TEMP OVER 100.4F OR MILD PAIN; Start 03/10/19 at 18:15 Al Hydroxide/Mg Hydroxide (Mylanta Plus Xs) 30 ml PRN DAILY PRN PO HEARTBURN / GAS; Start 03/10/19 at 18:15 Clonidine HCl (Catapres) 0.1 mg PRN Q6HRS PRN PO SBP>160 OR DBP>90 Last administered on 03/10/19at 20:43; Start 03/10/19 at 18:15 Docusate Sodium (Colace) 100 mg PRN BID PRN PO CONSTIPATION; Start 03/10/19 at 18:15 Albuterol/ Ipratropium (Duoneb) 3 ml Q4HRS NEB Last administered on 03/12/19at 07:56; Start 03/10/19 at 18:15 Guaifenesin (Robitussin) 200 mg PRN Q4HRS PRN PO COUGH; Start 03/10/19 at 18:15 Enoxaparin Sodium (Lovenox 40mg Syringe) 40 mg Q24H SQ Last administered on 03/11/19at 17:59; Start 03/10/19 at 19:00 Alprazolam (Xanax) 0.5 mg 1X ONCE PO ; Start 03/10/19 at 19:15; Stop 03/10/19 at 19:24; Status DC Amlodipine Besylate (Norvasc) 5 mg DAILY PO Last administered on 03/12/19at 08:35; Start 03/10/19 at 23:00 Albuterol/ Ipratropium (Duoneb) 3 ml STK-MED ONCE .ROUTE ; Start 03/10/19 at 23:47; Stop 03/10/19 at 23:47; Status DC Alprazolam (Xanax) 0.5 mg 1X ONCE PO Last administered on 03/11/19at 08:17; Start 03/11/19 at 09:00; Stop 03/11/19 at 09:01; Status DC Methylprednisolone Sodium Succinate (SOLU-Medrol 125MG VIAL) 60 mg Q8HRS IV Last administered on 03/12/19at 06:34; Start 03/11/19 at 14:00 Active Scripts Active [Pantoprazole] 40 MG Tablet.dr 40 Mg PO DAILY07 14 Days Lisinopril 40 Mg Tablet 40 Mg PO DAILY 30 Days Prednisone (Prednisone) 10 Mg Tablet 10 Mg PO UD Take 3 tablets by mouth twice a day for 3 days, then take 2 tablets by mouth twice a day for 3 days, then take 1 tablet by mouth twice a day for 3 days, then take 1 tablet by mouth daily x 3 days, then stop. Proair Hfa Inhaler (Albuterol Sulfate) 8.5 Gm Hfa.aer.ad 2 Puff IH PRN Q4-6HRS [Ipratropium/Albuterol Sulfate] 3 ML Nebu 3 Ml NEB RTQID Advair 250-50 Diskus (Fluticasone/Salmeterol) 1 Puff Puff 1 Puff INH BID Reported Xanax (Alprazolam) 1 Mg Tablet 1 Tab PO HS Vital Signs Vital Signs Date Time Temp Pulse Resp B/P (MAP) Pulse Ox O2 Delivery O2 Flow Rate FiO2 03/12/19 08:36 74 133/57 03/12/19 08:02 97.6 20 99 Nasal Cannula 2.0 97.6 Labs Laboratory Tests Test 03/10/19 16:45 03/11/19 03:45 Thyroid Stimulating Hormone (TSH) 1.015 uIU/mL (0.358-3.74) White Blood Count 5.2 x10^3/uL (4.0-11.0) Red Blood Count 4.76 x10^6/uL (3.50-5.40) Hemoglobin 13.7 g/dL (12.0-15.5) Hematocrit 41.8 % (36.0-47.0) Mean Corpuscular Volume 88 fL (79-100) Mean Corpuscular Hemoglobin 29 pg (25-35) Mean Corpuscular Hemoglobin Concent 33 g/dL (31-37) Red Cell Distribution Width 14.4 % (11.5-14.5) Platelet Count 187 x10^3/uL (140-400) Neutrophils (%) (Auto) 87 % (31-73) Lymphocytes (%) (Auto) 12 % (24-48) Monocytes (%) (Auto) 1 % (0-9) Eosinophils (%) (Auto) 0 % (0-3) Basophils (%) (Auto) 0 % (0-3) Neutrophils # (Auto) 4.5 x10^3/uL (1.8-7.7) Lymphocytes # (Auto) 0.6 x10^3/uL (1.0-4.8) Monocytes # (Auto) 0.1 x10^3/uL (0.0-1.1) Eosinophils # (Auto) 0.0 x10^3/uL (0.0-0.7) Basophils # (Auto) 0.0 x10^3/uL (0.0-0.2) Segmented Neutrophils % 91 % (35-66) Band Neutrophils % 2 % (0-9) Lymphocytes % 5 % (24-48) Atypical Lymphocytes % (Manual) 1 % (0-0) Monocytes % 1 % (0-10) Platelet Estimate Adequate (ADEQUATE) Sodium Level 145 mmol/L (136-145) Potassium Level 3.5 mmol/L (3.5-5.1) Chloride Level 103 mmol/L (98-107) Carbon Dioxide Level 32 mmol/L (21-32) Anion Gap 10 (6-14) Blood Urea Nitrogen 15 mg/dL (7-20) Creatinine 0.7 mg/dL (0.6-1.0) Estimated GFR (Cockcroft-Gault) 81.8 Glucose Level 133 mg/dL (70-99) Calcium Level 8.6 mg/dL (8.5-10.1) Allergies Allergies Coded Allergies Type Severity Reaction Last Updated Verified Penicillins Allergy Intermediate 03/14/18 Yes Disposition/Orders: D/C to Home w/ HH YOANDY GUTIERREZ MD Mar 12, 2019 11:20
[2019-03-12] MEDS ORDERED: DOCU-153 PO (11:24)
[2019-03-12] MEDS ORDERED: GUAI100L12 PO (11:24)
[2019-03-12] MEDS ORDERED: PRED50TA PO (11:24)
[2019-03-12] MEDS ORDERED: AMLO5TAB10 PO (11:24)
[2019-03-12] MEDS ORDERED: IPRA3AMP29 NEB (11:24)
[2019-03-12] MEDS ORDERED: ACET325T9 PO (11:24)
[2019-03-12 11:30] VITALS: BP 137/87
--- NOTE | 2019-03-12 14:50 | NUR ---
Discharge Note: TONI LEWIS [address] Discharge instructions and discharge home medications reviewed with patient and patient's son and a copy given. All questions have been answered and understanding verbalized. The following instructions and handouts were given: Nebulization with ipra/albuterol q4 hr. Follow up with PCP this week Follow up with Pulmo next week. Watch out for worsening of symptoms, severe dyspnea, fever. Educated about breathing technique (relaxation) Handouts on COPD exacerbation and anxiety. Discontinued lines and drains: peripheral IV intact, patient tolerated removal, no complications noted Patient discharged to home with home health via wheelchair accompanied by the patient's son at 1420.
--- NOTE | 2019-03-12 15:19 | SNU/HH DC ---
DISCHARGE WITH HOME HEALTH DISCHARGE INFORMATION: Final Diagnosis: Problems Medical Problems: (1) Anxiety Status: Acute (2) COPD (chronic obstructive pulmonary disease) Status: Acute (3) Dyspnea Status: Acute Condition on Discharge: Stable CODE STATUS: Code Status: Full HOME HEALTH: Face to Face: I certify this patient is under my care and that I, or a nurse practitioner or physician's visitor use assistant working with me, had a face to face encounter that meets the physician face to face encounter requirements with this patient on []. Medical Complications: COPD RN For Eval/Treatment: Yes Physical Therapy For: Evalulation/Treatment Occupational Therapy For: Evaluation/Treatment Speech Language Pathology For: Evaluation/Treatment Home Health Aide For: Self-care EMBEDDED FIRMWARE DEVELOPER For: Community Resources Pt Meets Homebound Status: Extreme weakness w/ amb. POST DISCHARGE ORDERS: Activity Instructions for Disc: Activity as tolerated Weight Bearing Status after Di: As tolerated DIET AFTER DISCHARGE: Cardiac CHECKS AFTER DISCHARGE: Checks after discharge: Check blood press - daily FOLLOW-UP: Follow up with: Pulmo next week, call clinic for appointment Follow Up With: PCP this week TREATMENT/EQUIPMENT ORDERS: Adaptive Equipment Issued: None, Front wheeled walker Discharge Respiratory Equipmen: Oxygen, Nebulizer CERTIFICATION STATEMENT: Certification Statement: Certification Statement: Based on the above finding, I certify that this patient is confined to the home and needs intermittent half-way care, physical therapy and/or speech therapy, or continues to need occupational therapy.~ This patient is under my care, and I have initiated the establishment of the plan of care.~ This patient will be followed by myself or a community physician who will periodically review the plan of care. Home Meds Active Scripts Prednisone (PREDNISONE) 50 Mg Tablet, 1 TAB PO DAILY for COPD for 5 Days, #5 TAB Prov:YOANDY GUTIERREZ MD 03/12/19 Docusate Sodium (DOK) 100 Mg Capsule, 100 MG PO PRN BID PRN for CONSTIPATION for 14 Days, #30 CAP Prov:YOANDY GUTIERREZ MD 03/12/19 Guaifenesin (GUAIFENESIN) 100 Mg/5 Ml Liquid, 200 MG PO PRN Q4HRS PRN for COUGH for 10 Days, #120 LIQUID Prov:YOANDY GUTIERREZ MD 03/12/19 Acetaminophen (TYLENOL) 325 Mg Tablet, 650 MG PO PRN Q4HRS PRN for TEMP OVER 100.4F OR MILD PAIN for 14 Days, #60 TAB Prov:YONADY GUTIERREZ MD 03/12/19 Amlodipine Besylate (AMLODIPINE BESYLATE) 5 Mg Tablet, 5 MG PO DAILY for BLOOD PRESSURE for 30 Days, #30 TAB Prov:YOANDY GUTIERREZ MD 03/12/19 Ipratropium/Albuterol Sulfate (DUONEB 0.5-3(2.5) MG/3 ML) 3 Ml Ampul.neb, 3 ML NEB Q4HRS for COPD for 30 Days, #180 EACH Prov:YOANDY GUTIERREZ MD 03/12/19 [Pantoprazole] 40 MG TABLET. No Conflict Check, 40 MG PO DAILY07 for 14 Days, #14 Prov:YOANDY GUTIERREZ MD 03/15/18 Lisinopril (LISINOPRIL) 40 Mg Tablet, 40 MG PO DAILY for blood pressure for 30 Days, #30 TAB Prov:YOANDY GUTIERREZ MD 03/15/18 Albuterol Sulfate (PROAIR HFA INHALER) 8.5 Gm Hfa.aer.ad, 2 PUFF IH PRN Q4-6HRS, #1 INHALER Prov:DEONTE MUÑOZ MD 10/02/14 [Ipratropium/Albuterol Sulfate] 3 ML NEBU No Conflict Check, 3 ML NEB RTQID, #120 Prov:DEONTE MUÑOZ MD 10/02/14 Fluticasone/Salmeterol (ADVAIR 250-50 DISKUS) 1 Puff Puff, 1 PUFF INH BID, #1 Prov:DEONTE MUÑOZ MD 10/02/14 Discontinued Reported Medications Alprazolam (XANAX) 1 Mg Tablet, 1 TAB PO HS for Anxiety, TAB 03/09/19 Discontinued Scripts Prednisone (PREDNISONE ) 10 Mg Tablet, 10 MG PO UD for PREDNISONE TAPER, #39 TAB 0 Refills Take 3 tablets by mouth twice a day for 3 days, then take 2 tablets by mouth twice a day for 3 days, then take 1 tablet by mouth twice a day for 3 days, then take 1 tablet by mouth daily x 3 days, then stop. Prov:DEONTE MUÑOZ MD 10/02/14 YOANDY GUTIERREZ MD Mar 12, 2019 15:19
--- NOTE | 2019-03-12 15:48 | NUR ---
Late note: HH arranged by Beverly from [facility] and she had met with pt's family. Confirmed plan with Lan. Pt to dc home today with [facility]. Pt denies other needs. Discussed with MAGDA.
--- NOTE | 2019-03-12 16:32 | CARD ---
MR#: [id number] Date of Study: 03/11/2019 Ordering Physician: YOANDY GUTIERREZ, Referring Physician: YOANDY GUTIERREZ Tech: Jojo Noel RDCS APPROVED REPORT EXAM: Two-dimensional and M-mode echocardiogram with Doppler and color Doppler. Other Information Quality : Good INDICATION Congestive Heart Failure 2D DIMENSIONS RVDd2.8 (2.9-3.5cm)Left Atrium(2D)2.7 (1.6-4.0cm) IVSd0.9 (0.7-1.1cm)Aortic Root(2D)2.4 (2.0-3.7cm) LVDd4.0 (3.9-5.9cm)LVOT Diameter2.1 (1.8-2.4cm) PWd1.0 (0.7-1.1cm)LVDs2.6 (2.5-4.0cm) FS (%) 34.5 %SV45.8 ml LVEF(%)64.2 (>50%) Aortic Valve AoV Peak Johnathan.119.8cm/sAoV VTI22.1cm AO Peak GR.5.7mmHgLVOT Peak Johnathan.111.8cm/s LVOT VTI 23.20cmAO Mean GR.3mmHg HÉCTOR (VMAX)3.52jz5OVS (VTI)3.54cm2 Mitral Valve MV E Vmdzpvse44.2cm/sMV DECEL OLQA389zp MV A Eszdudoy517.3cm/sMV YSY08lt E/A Ratio0.5MVA (PHT)4.73cm2 TDI E/Lateral E'8.9E/Medial E'6.0 Pulmonary Vein S1 Pziqybgx15.4cm/sD2 Cfqdvval46.9cm/s LEFT VENTRICLE The left ventricle is normal size. There is normal left ventricular wall thickness. The left ventricu lar systolic function is normal. The Ejection Fraction is 60-65%. There is normal LV segmental wall m otion. Transmitral Doppler flow pattern is Grade I-abnormal relaxation pattern. RIGHT VENTRICLE The right ventricle is normal size. The right ventricular systolic function is normal. ATRIA The left atrium size is normal. The right atrium size is normal. The interatrial septum is intact wit h no evidence for an atrial septal defect or patent foramen ovale as noted on 2-D or Doppler imaging. AORTIC VALVE The aortic valve is calcified but opens well. Doppler and Color Flow revealed no significant aortic r egurgitation. There is no significant aortic valvular stenosis. MITRAL VALVE The mitral valve is calcified but opens well. There is no evidence of mitral valve prolapse. There is no mitral valve stenosis. Doppler and Color-flow revealed trace mitral regurgitation. TRICUSPID VALVE The tricuspid valve is normal in structure and function. Doppler and Color Flow revealed no tricuspid valve regurgitation noted. There is no tricuspid valve stenosis. PULMONIC VALVE The pulmonic valve is not well visualized. Doppler and Color Flow revealed no pulmonic valvular regur gitation. There is no pulmonic valvular stenosis. GREAT VESSELS The aortic root is normal in size. The ascending aorta is not well seen. The IVC is normal in size an d collapses >50% with inspiration. PERICARDIAL EFFUSION There is no evidence of significant pericardial effusion. Critical Notification Critical Value: No <Conclusion> The left ventricular systolic function is normal. The Ejection Fraction is 60-65%. There is normal LV segmental wall motion. Transmitral Doppler flow pattern is Grade I-abnormal relaxation pattern. Trace mitral regurgitation. There is no evidence of significant pericardial effusion. Signed by : Ángel Gonzalez, Electronically Approved : 03/11/2019 13:52:55
== END 2019-03-12 14:30 | disposition home health service (06) | DRG 189 ==
LOC: ER 15:49 → 6 SOUTH 17:45 → OBSVTOIN 17:45
PROVIDERS: ADMIT Internal Medicine; ATTEND Internal Medicine
DX: J96.02 Acute respiratory failure with hypercapnia (principal); J44.1 Chronic obstructive pulmonary disease with (acute) exacerbation; J96.01 Acute respiratory failure with hypoxia; E66.01 Morbid (severe) obesity due to excess calories; E78.5 Hyperlipidemia, unspecified; F41.9 Anxiety disorder, unspecified; I11.0 Hypertensive heart disease with heart failure; I25.10 Atherosclerotic heart disease of native coronary artery without angina pectoris; I50.9 Heart failure, unspecified; I70.0 Atherosclerosis of aorta; J84.10 Pulmonary fibrosis, unspecified; M19.90 Unspecified osteoarthritis, unspecified site; J96.91 Respiratory failure, unspecified with hypoxia; Z82.49 Family history of ischemic heart disease and other diseases of the circulatory system; Z82.5 Family history of asthma and other chronic lower respiratory diseases; Z87.442 Personal history of urinary calculi; Z90.49 Acquired absence of other specified parts of digestive tract; Z90.710 Acquired absence of both cervix and uterus; Z99.81 Dependence on supplemental oxygen; Z88.0 Allergy status to penicillin; Z79.899 Other long term (current) drug therapy; Z68.31 Body mass index [BMI] 31.0-31.9, adult
CPT/HCPCS: 36415; 36600; 71046; 71250; 80048; 80053; 82805; 83880; 84443; 84484; 85007; 85025; 90471; 90686; 93005; 93306; 94640; 94660; 94760; 96374; J1650; J2060; J2930; J7620; J7626; 92610; 99285-25; G0378

== ENCOUNTER 2020-09-15 17:50 | Inpatient (IN) | payer MEDICARE ==
[~2020-09-15] VITALS: Ht 165.1 cm; Wt 61.2 kg
[~2020-09-15 17:50] MED LIST changes: +ACET325T9 PO; +ALBU2.5V14 NEB; +ALBU2.5V8 NEB; +ALPR1TAB2 PO; +AMLO-186 PO; +ASPI-886 PO; +BUDE180A IH; +DOCU-153 PO; +GUAI100L12 PO; +HYDR12.575 PO; +IPRA3AMP29 NEB; +LIDO700A21 TD; +METH40VI IV; +OLAN5TAB7 PO; +ONDA-84 PO; +POTA20TA4 PO; +PRED50TA PO
--- NOTE | 2020-09-15 18:30 | PHYS DOC ---
Past Medical History Past Medical History: Anxiety, Bipolar, COPD, Hypertension, Other Additional Past Medical Histor: shingles Past Surgical History: Appendectomy, Cholecystectomy, Hysterectomy Additional Past Surgical Histo: cyst from breast Smoking Status: Former Smoker Alcohol Use: None Drug Use: None General Adult EDM: Chief Complaint: SHORTNESS OF BREATH HPI: HPI: Patient is a 75 year old female with past medical history of COPD chronically on 4 L nasal cannula anxiety presents with a chief complaint of anxiety. Patient states she told her neighbor to call 911 because she wanted to be evaluated for anxiety. Patient states she has been anxious because she has not heard from her family particularly her son in the last day or so. EMS states they have written on the patient 3 times in the last 24 hours. They state patient called because she was having difficulty breathing. When I examined the patient she denies any headache chest pain new shortness of breath abdominal pain nausea vomiting or diarrhea. Patient's only complaint is anxiety. Review of Systems: Review of Systems: Review of systems: Constitutional symptoms- No fever, no chills. Eyes- No Discharge, No Visual Loss Respiratory symptoms- No shortness of breath, No wheezing, No Dyspnea on Exertion Cardiovascular Systems; No chest pain, No Palpitations, No syncope Gastrointestinal symptoms: NO abdominal pain, no nausea, no vomiting or diarrhea. Genitourinary symptoms: No dysuria. Musculoskeletal symptoms: No back pain No extremity pain. NEUROLOGICAL Symptoms: No headache, no generalized weakness; No focal Weakness . Psych positive anxiety Heart Score: C/O Chest Pain: No HEART Score for Chest Pain: HEART Score for Chest Pain Response (Comments) Value History Slighlty/Non-Suspicious 0 ECG Nonspecific Repolarizatio 1 Age > 65 2 Risk Factors 1 or 2 Risk Factors 1 Total 4 Risk Factors: Risk Factors: DM, Current or recent (<one month) smoker, HTN, HLP, family history of CAD, obesity. Risk Scores: Score 0 - 3: 2.5% MACE over next 6 weeks - Discharge Home Score 4 - 6: 20.3% MACE over next 6 weeks - Admit for Clinical Observation Score 7 - 10: 72.7% MACE over next 6 weeks - Early Invasive Strategies Allergies: Allergies: Allergies Coded Allergies Type Severity Reaction Last Updated Verified Penicillins Allergy Intermediate rash as a child 09/07/20 Yes Physical Exam: PE: General: alert, no acute distress. Skin: warm, dry and intact. Head:: Normocephalic, atraumatic. Neck: Trachea midline. Eyes: EOMI, Normal conjunctiva, No drainage CARDIOVASCULAR: Regular rate and rhythm RESPIRATORY: No respiratory distress Lungs Clear on 5L nc Back: Full range of motion. MUSCULOSKELETAL: Full range of motion of bilateral upper and lower extremities. GASTROINTESTINAL: Abdomen soft without rebound or guarding. NEUROLOGICAL: Alert and noted to person, place and time. No neurological deficits observed Psychiatric: Cooperative. Normal judgment EKG: EKG: [] Radiology/Procedures: Radiology/Procedures: [] Impression: FINDINGS: The heart is not enlarged. Mediastinal and hilar contours are stable. Aortic calcifications are seen. No lobar consolidation. Emphysematous changes are seen. No pleural effusion or pneumothorax. IMPRESSION: No lobar consolidation. Emphysematous changes are seen. Electronically signed by: Daniel Hung MD (09/15/2020 6:58 PM) [facility] Course & Med Decision Making: Course & Med Decision Making Pertinent Labs and Imaging studies reviewed. (See chart for details) [] Patient was evaluated for chief complaint. Work-up consisted of laboratory analysis and radiologic imaging and EKG. Results reviewed and discussed with patient. Patient's only complaint is anxiety. She was treated with Ativan 1 mg. Reevaluation patient states she feels better states she feels comfortable going home. Patient continues to be on 4L nasal cannula her oxygen saturation is 98% with a respiratory rate of 17. . Patient continues to deny any chest pain or shortness of breath. She states her anxiety has improved. 2300hrs-- Patient states she is now short of breath. No states she can not go home because she is short of breath. She is tachypenic but lungs are clear on exam. Treated with Solumedrol and Duoneb. Will admit. Geovanna Disclaimer: Geovanna Disclaimer: This electronic medical record was generated, in whole or in part, using a voice recognition dictation system. Departure Departure Impression: Primary Impression: Anxiety Additional Impression: COPD (chronic obstructive pulmonary disease) Disposition: ADMITTED INPATIENT Admitting Physician: BIANCA Condition: STABLE Referrals: AGUSTIN RIOS DO (PCP) Patient Instructions: Anxiety and Panic Attacks, Chronic Obstructive Pulmonary Disease Exacerbation Scripts Alprazolam (XANAX) 0.5 Mg Tablet 1 TAB PO DAILY, #10 TAB Prov: ANIBAL HWANG DO 09/15/20 ANIBAL HWANG DO September 15, 2020 18:30
[2020-09-15 18:55] LABS: BASO % 0 % (0-3); EOS # 0.1 x10^3/uL (0.0-0.7); EOS % 2 % (0-3); HEMATOCRIT 36.5 % (36.0-47.0); HEMOGLOBIN 12.2 g/dL (12.0-15.5); LYMPH # 1.1 x10^3/uL (1.0-4.8); LYMPH % 19 % (24-48); MEAN CORPUSCULAR HEMOGLOBIN 29 pg (25-35); MEAN CORPUSCULAR HGB CONC 33 g/dL (31-37); MEAN CORPUSCULAR VOLUME 87 fL (79-100); MONO # 0.6 x10^3/uL (0.0-1.1); MONO % 11 % (0-9); NEUT # 3.8 x10^3/uL (1.8-7.7); NEUT % 67 % (31-73); PLATELET COUNT 176 x10^3/uL (140-400); RED BLOOD COUNT 4.22 x10^6/uL (3.50-5.40); RED CELL DISTRIBUTION WIDTH 14.9 % (11.5-14.5); WHITE BLOOD COUNT 5.7 x10^3/uL (4.0-11.0)
[2020-09-15 18:59] LABS: CALCIUM 8.1 mg/dL (8.5-10.1); CREATININE 0.8 mg/dL (0.6-1.0); GFR 69.9; POTASSIUM 3.8 mmol/L (3.5-5.1)
--- NOTE | 2020-09-15 19:01 | RAD ---
EXAM: AP View of the chest DATE: 09/15/2020 6:33 PM INDICATION: Reason: shortness of breath / Spl. Instructions: / History: COMPARISON: 09/07/2020, 03/27/2019 FINDINGS: The heart is not enlarged. Mediastinal and hilar contours are stable. Aortic calcifications are seen. No lobar consolidation. Emphysematous changes are seen. No pleural effusion or pneumothorax. IMPRESSION: No lobar consolidation. Emphysematous changes are seen. Electronically signed by: Daniel Hung MD (09/15/2020 6:58 PM) [facility]
[2020-09-15 19:05] LABS: ALBUMIN 3.6 g/dL (3.4-5.0); ALBUMIN/GLOBULIN RATIO 1.6 (1.0-1.7); TOTAL BILIRUBIN 0.4 mg/dL (0.2-1.0); TOTAL PROTEIN 5.9 g/dL (6.4-8.2)
[2020-09-15] MEDS ORDERED: ALPR0.5T PO (19:56)
[2020-09-15] MEDS ORDERED: IPRATRPIUM/ALBUTEROL 0.5/2.5MG 3 ML NEBU. NEB ONE (23:30)
[2020-09-15] MEDS ORDERED: ONDANSETRON PF 4 MG/2 ML VIAL. IV PRN (23:30)
[2020-09-15] MEDS ORDERED: methylPREDNISolone SOD SUCC PF 125 MG/2 ML VIAL. IV ONE (23:30)
[2020-09-16] MEDS ORDERED: ALBUTEROL SULFATE 2.5 MG/3 ML NEBU. NEB PRN ×2 (01:30→14:45)
[2020-09-16 03:00] VITALS: BP 165/67
[2020-09-16 07:00] VITALS: BP 152/73
[2020-09-16] MEDS: IPRATRPIUM/ALBUTEROL 0.5/2.5MG 3 ML NEBU. NEB SCH ×4 (07:40→20:07)
--- NOTE | 2020-09-16 10:40 | PDOC1 ---
History and Physical Date of Admission Date of Admission DATE: 09/16/20 TIME: 10:40 Identification/Chief Complaint Chief Complaint SOA, CONFUSED History of Present Illness History of Present Illness Seen in room 664 today, confused 75 year old female with past medical history of COPD chronically on 4 L nasal cannula anxiety presents with a chief complaint of anxiety. states she told her neighbor to call 911 because she wanted to be evaluated for anxiety. states she has been anxious because she has not heard from her family particularly her son in the last day or so. EMS states they have BEEN called patient 3 times in the last 24 hours. patient called because she was having difficulty breathing. just discharged 09-14 Shortness of breath with probable acute on chronic heart failure. Grade I-abnormal relaxation pattern. echo history of COPD. HYPERCAPNIC/ HYPOXIC RESPIRATORY FAILURE on home oxygen at 2 liters. Chronic RBBB on09-14 was LESS SOA she REFUSED SNF on last discharge AMA labs are consistent with possible heart failure. recent hospital days as follows;; 09-13 LESS SOA FEEL very weak today, thinks she may need SNF labs are consistent with possible heart failure. d/w RN mild hypernatremia inc norvasc to 5 mg po bid iv steroids in the ER, Prognosis guarded. DuoNebs. qid Transmitral Doppler flow pattern is Grade I-abnormal relaxation pattern. echo history of COPD. on home oxygen at 2 liters. Acute on chronic hypoxic respiratory failure secondary to acute on chronic diastolic heart failure, triggered by hypertensive urgency. PT/OT D/C SOON D/W PULM 09-14 LESS SOA FEEL LESS weak today, she REFUSED SNF labs are consistent with possible heart failure. d/w RN mild hypernatremia htn remains labile inc norvasc to 5 mg po bid iv steroids in the ER, Prognosis guarded. DuoNebs. qid Transmitral Doppler flow pattern is Grade I-abnormal relaxation pattern. echo history of COPD. on home oxygen at 2 liters. Acute on chronic hypoxic respiratory failure secondary to acute on chronic diastolic heart failure, triggered by hypertensive urgency. D/C OK WITH PULM Past Medical History Past Medical History Past Medical History Past Medical History Past Medical History: Anxiety, Bipolar, COPD, Hypertension, Other Additional Past Medical Histor: shingles Past Surgical History: Appendectomy, Cholecystectomy, Hysterectomy Additional Past Surgical Histo: cyst from breast Smoking Status: Former Smoker Alcohol Use: None Drug Use: None PAST MEDICAL HISTORY: Anxiety, bipolar depression, hypertension, COPD, shingles, cholecystectomy, appendectomy, hysterectomy, cyst on her breast, previous tobacco abuse. ALLERGIES: PENICILLIN. FAMILY HISTORY: Hypertension. SOCIAL HISTORY: She used to smoke. No drinking or drugs. She is retired. MEDICATIONS: Reviewed, please refer to the MRAD. Cardiovascular: HTN Pulmonary: Bronchitis, COPD Psych: Anxiety Musculoskeletal: Osteoarthritis Infectious disease: Herpes zoster Renal/: Other Past Surgical History Past Surgical History: Appendectomy, Cholecystectomy, Hysterectomy Family History Family History: Heart Disease Social History Smoke: Quit ALCOHOL: none Drugs: None Current Problem List Problem List Problems Medical Problems: (1) Anxiety Status: Acute (2) COPD (chronic obstructive pulmonary disease) Status: Acute Current Medications Current Medications Current Medications Lorazepam (Ativan Inj) 1 mg 1X ONCE IVP Last administered on 09/15/20at 19:02; Start 09/15/20 at 18:30; Stop 09/15/20 at 18:31; Status DC Methylprednisolone Sodium Succinate (SOLU-Medrol 125MG VIAL) 125 mg 1X ONCE IV Last administered on 09/15/20at 23:21; Start 09/15/20 at 23:30; Stop 09/15/20 at 23:31; Status DC Albuterol/ Ipratropium (Duoneb) 3 ml 1X ONCE NEB Last administered on 1at 00:04; Start 09/15/20 at 23:30; Stop 09/15/20 at 23:31; Status DC Ondansetron HCl (Zofran) 4 mg PRN Q8HRS PRN IV NAUSEA/VOMITING 1ST CHOICE; Start 09/15/20 at 23:30; Stop 09/16/20 at 23:29 Albuterol/ Ipratropium (Duoneb) 3 ml Q4HRS W/A NEB Last administered on 09/16/20at 07:40; Start 09/16/20 at 06:00 Albuterol Sulfate (Ventolin Neb Soln) 2.5 mg PRN Q2HRS PRN NEB SHORTNESS OF BREATH; Start 09/16/20 at 01:30 Active Scripts Active Xanax (Alprazolam) 0.5 Mg Tablet 1 Tab PO DAILY Lidocaine PATCH (Lidocaine) 1 Each Adh..patch 1 Patch TD DAILY 30 Days Hydrochlorothiazide Capsule (Hydrochlorothiazide) 12.5 Mg Capsule 12.5 Mg PO DAILY 30 Days Klor-Con M20 (Potassium Chloride) 20 Meq Tab.er.prt 20 Meq PO DAILYWBKFT 30 Days Olanzapine Odt (Olanzapine) 5 Mg Tab.rapdis 5 Mg PO PRN BID PRN 30 Days Aspirin Ec (Aspirin) 81 Mg Tablet.dr 81 Mg PO DAILYWBKFT 30 Days Amlodipine Besylate 5 Mg Tablet 5 Mg PO BID 30 Days Proair Hfa (Albuterol Sulfate) 8.5 Gm Hfa.aer.ad 2.5 Mg NEB PRN Q2HRS PRN 30 Days Dok (Docusate Sodium) 100 Mg Capsule 100 Mg PO PRN BID PRN 14 Days Tylenol (Acetaminophen) 325 Mg Tablet 650 Mg PO PRN Q4HRS PRN 14 Days Duoneb 0.5-3(2.5) Mg/3 Ml (Albuterol/Ipratropium) 3 Ml Ampul.neb 3 Ml NEB Q4HRS 30 Days Lisinopril 40 Mg Tablet 40 Mg PO DAILY 30 Days [Ipratropium/Albuterol Sulfate] 3 ML Nebu 3 Ml NEB RTQID Reported Albuterol Sulfate Conc Neb Soln (Albuterol Sulfate) 2.5 Mg/0.5 Ml Vial.neb 1 Vial NEB Q2HR Allergies Allergies: Coded Allergies: Penicillins (Verified Allergy, Intermediate, rash as a child, 09/07/20) ROS General: YES: Fatigue, Malaise PSYCHOLOGICAL ROS: YES: Concentration difficultie, Depression, Disorientation Eyes: No Blurry vision, No Decreased vision, No Double vision, No Dry eyes, No Excessive tearing, No Eye Pain, No Itchy Eyes, No Loss of vision, No Photophobia, No Scotomata, No Uses contacts, No Uses glasses, No Other HEENT: YES: Heacaches; No: Visual Changes, Hearing change, Nasal congestion, Nasal discharge, Oral lesions, Sinus pain, Sore Throat, Epistaxis, Sneezing, Snoring, Tinnitus, Vertigo, Vocal changes, Other ALLERGY AND IMMUNOLOGY: YES: Hives; No: Insect Bite Sensitivity, Itchy/Watery Eyes, Nasal Congestion, Post Nasal Drip, Seasonal Allergies, Other Hematological and Lymphatic: No: Bleeding Problems, Blood Clots, Blood Transfusions, Brusing, Night Sweats, Pallor, Swollen Lymph Nodes, Other ENDOCRINE: No: Breast Changes, Galactorrhea, Hair Pattern Changes, Hot Flashes, Malaise/lethargy, Mood Swings, Palpitations, Polydipsia/polyuria, Skin Changes, Temperature Intolerance, Unexpected Weight Changes, Other Breast: No New/Changing Breast Lumps, No Nipple changes, No Nipple discharge, No Other Respiratory: YES: Orthopnea, Shortness of breath, SOB with excertion; No: Cough, Hemoptysis, Pleuritic Pain, Sputum Changes, Stridor, Tachypnea, Wheezing, Other Cardiovascular: No Chest Pain, No Palpitations, No Orthopnea, No Paroxysmal Noc. Dyspnea, No Edema, No Lt Headedness, No Other Gastrointestinal: No Nausea, No Vomiting, No Abdominal Pain, No Diarrhea, No Constipation, No Melena, No Hematochezia, No Other Genitourinary: No Dysuria, No Frequency, No Incontinence, No Hematuria, No Retention, No Discharge, No Urgency, No Pain, No Flank Pain, No Other, No , No , No , No , No , No , No Musculoskeletal: No Gait Disturbance, No Joint Pain, No Joint Stiffness, No Joint Swelling, No Muscle Pain, No Muscular Weakness, No Pain In:, No Swelling In:, No Other Neurological: Yes Confusion; No Behavorial Changes, No Bowel/Bladder ControlChng, No Dizziness, No Gait Disturbance, No Headaches, No Impaired Coord/balance, No Memory Loss, No Numbness/Tingling, No Seizures, No Speech Problems, No Tremors, No Visual Changes, No Weakness, No Other Skin: Yes Dry Skin; No Eczema, No Hair Changes, No Lumps, No Mole Changes, No Mottling, No Nail Changes, No Pruritus, No Rash, No Skin Lesion Changes, No Other, No Acne Physical Exam General: Alert, Oriented X3, Cooperative, mild distress HEENT: Atraumatic, EOMI, Mucous membr. moist/pink Lungs: Normal air movement Heart: RRR Breasts: Not examined Abdomen: Normal bowel sounds, Soft Rectal Exam: not examined PELVIC: Examination not indicated Extremities: No cyanosis Neuro: Normal speech, Sensation intact, Cranial nerves 3-12 NL Psych/Mental Status: Mental status NL, Mood NL Vitals Vitals Vital Signs Date Time Temp Pulse Resp B/P (MAP) Pulse Ox O2 Delivery O2 Flow Rate FiO2 09/16/20 07:40 Nasal Cannula 4.0 09/16/20 03:00 97.8 102 19 165/67 (99) 96 97.8 Labs Labs Laboratory Tests Test 09/15/20 18:45 09/16/20 02:00 09/16/20 05:45 White Blood Count 5.7 x10^3/uL (4.0-11.0) Red Blood Count 4.22 x10^6/uL (3.50-5.40) Hemoglobin 12.2 g/dL (12.0-15.5) Hematocrit 36.5 % (36.0-47.0) Mean Corpuscular Volume 87 fL (79-100) Mean Corpuscular Hemoglobin 29 pg (25-35) Mean Corpuscular Hemoglobin Concent 33 g/dL (31-37) Red Cell Distribution Width 14.9 % (11.5-14.5) Platelet Count 176 x10^3/uL (140-400) Neutrophils (%) (Auto) 67 % (31-73) Lymphocytes (%) (Auto) 19 % (24-48) Monocytes (%) (Auto) 11 % (0-9) Eosinophils (%) (Auto) 2 % (0-3) Basophils (%) (Auto) 0 % (0-3) Neutrophils # (Auto) 3.8 x10^3/uL (1.8-7.7) Lymphocytes # (Auto) 1.1 x10^3/uL (1.0-4.8) Monocytes # (Auto) 0.6 x10^3/uL (0.0-1.1) Eosinophils # (Auto) 0.1 x10^3/uL (0.0-0.7) Basophils # (Auto) 0.0 x10^3/uL (0.0-0.2) Sodium Level 146 mmol/L (136-145) Potassium Level 3.8 mmol/L (3.5-5.1) Chloride Level 106 mmol/L (98-107) Carbon Dioxide Level 33 mmol/L (21-32) Anion Gap 7 (6-14) Blood Urea Nitrogen 22 mg/dL (7-20) Creatinine 0.8 mg/dL (0.6-1.0) Estimated GFR (Cockcroft-Gault) 69.9 BUN/Creatinine Ratio 28 (6-20) Glucose Level 123 mg/dL (70-99) Calcium Level 8.1 mg/dL (8.5-10.1) Total Bilirubin 0.4 mg/dL (0.2-1.0) Aspartate Amino Transf (AST/SGOT) 16 U/L (15-37) Alanine Aminotransferase (ALT/SGPT) 24 U/L (14-59) Alkaline Phosphatase 70 U/L (46-116) Troponin I Quantitative < 0.017 ng/mL (0.000-0.055) < 0.017 ng/mL (0.000-0.055) < 0.017 ng/mL (0.000-0.055) Total Protein 5.9 g/dL (6.4-8.2) Albumin 3.6 g/dL (3.4-5.0) Albumin/Globulin Ratio 1.6 (1.0-1.7) Laboratory Tests Test 09/15/20 18:45 09/16/20 02:00 09/16/20 05:45 White Blood Count 5.7 x10^3/uL (4.0-11.0) Red Blood Count 4.22 x10^6/uL (3.50-5.40) Hemoglobin 12.2 g/dL (12.0-15.5) Hematocrit 36.5 % (36.0-47.0) Mean Corpuscular Volume 87 fL (79-100) Mean Corpuscular Hemoglobin 29 pg (25-35) Mean Corpuscular Hemoglobin Concent 33 g/dL (31-37) Red Cell Distribution Width 14.9 % (11.5-14.5) Platelet Count 176 x10^3/uL (140-400) Neutrophils (%) (Auto) 67 % (31-73) Lymphocytes (%) (Auto) 19 % (24-48) Monocytes (%) (Auto) 11 % (0-9) Eosinophils (%) (Auto) 2 % (0-3) Basophils (%) (Auto) 0 % (0-3) Neutrophils # (Auto) 3.8 x10^3/uL (1.8-7.7) Lymphocytes # (Auto) 1.1 x10^3/uL (1.0-4.8) Monocytes # (Auto) 0.6 x10^3/uL (0.0-1.1) Eosinophils # (Auto) 0.1 x10^3/uL (0.0-0.7) Basophils # (Auto) 0.0 x10^3/uL (0.0-0.2) Sodium Level 146 mmol/L (136-145) Potassium Level 3.8 mmol/L (3.5-5.1) Chloride Level 106 mmol/L (98-107) Carbon Dioxide Level 33 mmol/L (21-32) Anion Gap 7 (6-14) Blood Urea Nitrogen 22 mg/dL (7-20) Creatinine 0.8 mg/dL (0.6-1.0) Estimated GFR (Cockcroft-Gault) 69.9 BUN/Creatinine Ratio 28 (6-20) Glucose Level 123 mg/dL (70-99) Calcium Level 8.1 mg/dL (8.5-10.1) Total Bilirubin 0.4 mg/dL (0.2-1.0) Aspartate Amino Transf (AST/SGOT) 16 U/L (15-37) Alanine Aminotransferase (ALT/SGPT) 24 U/L (14-59) Alkaline Phosphatase 70 U/L (46-116) Troponin I Quantitative < 0.017 ng/mL (0.000-0.055) < 0.017 ng/mL (0.000-0.055) < 0.017 ng/mL (0.000-0.055) Total Protein 5.9 g/dL (6.4-8.2) Albumin 3.6 g/dL (3.4-5.0) Albumin/Globulin Ratio 1.6 (1.0-1.7) VTE Prophylaxis Ordered VTE Prophylaxis Devices: No VTE Pharmacological Prophylaxi: Yes Assessment/Plan Assessment/Plan ASSESSMENT Shortness of breath with acute on chronic heart failure. Transmitral Doppler flow pattern is Grade I-abnormal relaxation pattern. echo history of COPD. HYPERCAPNIC/ HYPOXIC RESPIRATORY FAILURE on home oxygen at 2 liters. right leg pain. improved Chronic RBBB Hypokalemia noncompliance re SNF ADMISSION THIS WEEK, HIGH RISK RE-ADMIT plan admitted. iv steroids consult pulmonary Cardiac monitoring. O2 per nasal cannula. DVT prophylaxis. Home medications, p.r.n. p.r.n. Zofran. Full code. Serial enzymes. Prognosis guarded. DuoNebs. qid PFTs as an outpatient. Echo 5-12 Resume home antiHTN therapy Lung optimization Supportive care outpatient ischemic evaluation PFTs as an outpatient. increase activity PT/OT NEEDS SNF D/W RN Justifications for Admission Other Justification YOANDY GUTIERREZ MD September 16, 2020 10:40
[2020-09-16 11:00] VITALS: BP 104/50
--- NOTE | 2020-09-16 12:42 | NUR ---
SW following. Discussed with RN, pt from home alone in an [place], 5L (uses oxygen at home), regular diet. Pt discharged home this week with [facility]. On last admission therapy was recommending SNF - pt refused COVID swab so was unable to go. SW requested RN attempt COVID swab this admission to try again. SW will continue to follow.
[2020-09-16] MEDS ORDERED: DOCUSATE SODIUM 100 MG CAPSULE. PO PRN (14:45)
[2020-09-16] MEDS ORDERED: ACETAMINOPHEN 325 MG TABLET. PO PRN (14:45)
[2020-09-16 15:00] VITALS: BP 167/65
[2020-09-16] MEDS: LIDOCAINE (700MG/PATCH) PATCH. TD SCH ×2 (15:00→15:53)
[2020-09-16] MEDS: ASPIRIN ENTERIC COATED 81 MG TABLET.DR. PO SCH (15:51)
[2020-09-16] MEDS: POTASSIUM CHLORIDE 20 MEQ TABLET.ER. PO SCH (15:52)
[2020-09-16] MEDS: LISINOPRIL 20 MG TABLET PO SCH (15:52)
[2020-09-16] MEDS: ALPRAZolam 0.5 MG TABLET PO SCH (15:52)
[2020-09-16] MEDS: hydroCHLOROthiazide 12.5 MG CAPSULE PO SCH (15:52)
[2020-09-16] MEDS: FUROSEMIDE 20 MG/2 ML VIAL. IVP SCH (15:53)
[2020-09-16] MEDS: methylPREDNISolone SOD SUCC PF 125 MG/2 ML VIAL. IV SCH ×2 (15:53→21:04)
[2020-09-16] MEDS ORDERED: NON FORMULARY ITEM ([Ipratropium/Albuterol Sulfate] 3 ML) NEB SCH (16:00)
[2020-09-16] MEDS ORDERED: NON FORMULARY ITEM (Albuterol Sulfate (Albuterol Sulfate Conc Neb Soln) 1 VIAL) NEB SCH (16:00)
[2020-09-16 19:00] VITALS: BP 152/68
[2020-09-16] MEDS: PATCH REMOVAL. MC SCH (21:00)
[2020-09-16] MEDS: amLODIPine BESYLATE 5 MG TABLET PO SCH (21:04)
[2020-09-16 23:00] VITALS: BP 163/64
[2020-09-17 03:00] VITALS: BP 138/57
[2020-09-17] MEDS: IPRATRPIUM/ALBUTEROL 0.5/2.5MG 3 ML NEBU. NEB SCH ×6 (04:00→20:46)
[2020-09-17] MEDS: methylPREDNISolone SOD SUCC PF 125 MG/2 ML VIAL. IV SCH ×3 (06:30→20:28)
[2020-09-17 07:00] VITALS: BP 163/67
[2020-09-17] MEDS: LIDOCAINE (700MG/PATCH) PATCH. TD SCH (09:00)
[2020-09-17] MEDS: ASPIRIN ENTERIC COATED 81 MG TABLET.DR. PO SCH (09:11)
[2020-09-17] MEDS: ALPRAZolam 0.5 MG TABLET PO SCH (09:11)
[2020-09-17] MEDS: amLODIPine BESYLATE 5 MG TABLET PO SCH ×2 (09:11→20:27)
[2020-09-17] MEDS: hydroCHLOROthiazide 12.5 MG CAPSULE PO SCH (09:12)
[2020-09-17] MEDS: LISINOPRIL 20 MG TABLET PO SCH (09:12)
[2020-09-17] MEDS: POTASSIUM CHLORIDE 20 MEQ TABLET.ER. PO SCH (09:12)
[2020-09-17] MEDS: FUROSEMIDE 20 MG/2 ML VIAL. IVP SCH (09:12)
--- NOTE | 2020-09-17 10:02 | CONS ---
DATE OF CONSULTATION: 09/17/2020 PULMONARY CONSULTATION: ATTENDING PHYSICIAN: Irving Pizano MD. REASON FOR CONSULTATION: Dyspnea. HISTORY OF PRESENT ILLNESS: The patient is a 75-year-old female who has a history of COPD. She is chronically on home oxygen at 4 liters. She was recently discharged after she was treated for acute on chronic diastolic heart failure and COPD. The patient was brought into the hospital with what seems like an anxiety attack. She called 911 and she has some dispute with her neighbor. She did not want her to visit her home. She was hyperventilating and she was evaluated. The patient's chest x-ray did not reveal any acute infiltrates. She is currently on her home oxygen at 3 liters. No cough, no fever, no chills, no chest pains. PAST MEDICAL HISTORY: History of likely COPD, history of diastolic congestive heart failure. Normal ejection fraction per echo. PAST SURGICAL HISTORY: No recent surgeries. ALLERGIES: PENICILLIN. MEDICATIONS: Reviewed as listed in the MRAD including IV Solu-Medrol and DuoNebs. REVIEW OF SYSTEMS: A 12-point system obtained. Pertinent positives discussed in my history of present illness, otherwise noncontributory. All systems that were negative were reviewed as well. SOCIAL HISTORY: Has a history of tobacco use. FAMILY HISTORY: Noncontributory to lungs. PHYSICAL EXAMINATION: VITAL SIGNS: Reviewed. Pulse ox 96% on 3 liters. NECK: Supple. LUNGS: Clear. CARDIOVASCULAR: With a regular rate. ABDOMEN: Soft, nontender. EXTREMITIES: With no pitting edema. LABORATORY DATA: Reviewed. White cell count 5.7, hemoglobin 12.2, and platelets are 176. BUN 22, creatinine 0.8. IMPRESSION: Dyspnea, likely secondary to panic attack/anxiety. The patient has a history of chronic obstructive pulmonary disease. She is on home oxygen at 3-4 liters. Her oxygen requirement has not changed and her chest x-ray is clear. There is no evidence of congestive heart failure. Her chronic obstructive pulmonary disease is stable. RECOMMENDATIONS: 1. From a pulmonary standpoint, I do not see a need for adding anything else. At this point, I would recommend to taper off of the steroids. 2. The patient could be discharged. 3. Contact social service worker. 4. Continue home oxygen at 3 liters. I will sign off. FUAD/NAS FABIAN: Fabio TID: [id number]
--- NOTE | 2020-09-17 10:11 | PDOC ---
PROGRESS NOTES Date of Service: DATE: 09/17/20 TIME: 10:11 Chief Complaint Chief Complaint VTE Prophylaxis Ordered VTE Prophylaxis Devices: No VTE Pharmacological Prophylaxi: Yes Assessment/Plan Assessment/Plan ASSESSMENT Shortness of breath with acute on chronic heart failure. Transmitral Doppler flow pattern is Grade I-abnormal relaxation pattern. echo history of COPD. HYPERCAPNIC/ HYPOXIC RESPIRATORY FAILURE on home oxygen at 2 liters. right leg pain. improved Chronic RBBB Hypokalemia noncompliance re SNF ADMISSION THIS WEEK, HIGH RISK RE-ADMIT plan admitted. iv steroids consult pulmonary Cardiac monitoring. O2 per nasal cannula. DVT prophylaxis. Home medications, p.r.n. p.r.n. Zofran. Full code. Serial enzymes. Prognosis guarded. DuoNebs. qid PFTs as an outpatient. Echo 09-08 Resume home antiHTN therapy Lung optimization Supportive care outpatient ischemic evaluation PFTs as an outpatient. increase activity PT/OT NEEDS SNF D/W RN Justifications for Admission Justifications for Admission Other Justification History of Present Illness History of Present Illness Identification/Chief Complaint Chief Complaint SOA, CONFUSED History of Present Illness History of Present Illness Seen in room 664 today, confused 75 year old female with past medical history of COPD chronically on 4 L nasal cannula anxiety presents with a chief complaint of anxiety. states she told her neighbor to call 911 because she wanted to be evaluated for anxiety., cannot take care of herfsel at home states she has been anxious because she has not heard from her family particularly her son in the last day or so. EMS states they have BEEN called patient 3 times in the last 24 hours. patient called because she was having difficulty breathing. just discharged 09-14 Shortness of breath with probable acute on chronic heart failure. Grade I-abnormal relaxation pattern. echo history of COPD. HYPERCAPNIC/ HYPOXIC RESPIRATORY FAILURE on home oxygen at 2 liters. Chronic RBBB on09-14 was LESS SOA she REFUSED SNF on last discharge AMA labs are consistent with possible heart failure. recent hospital days as follows;; -17 LESS SOA FEEL very weak today, thinks she may need SNF labs are consistent with possible heart failure. d/w RN mild hypernatremia inc norvasc to 5 mg po bid iv steroids in the ER, Prognosis guarded. DuoNebs. qid Transmitral Doppler flow pattern is Grade I-abnormal relaxation pattern. echo history of COPD. on home oxygen at 2 liters. Acute on chronic hypoxic respiratory failure secondary to acute on chronic diastolic heart failure, triggered by hypertensive urgency. PT/OT D/C SOON D/W PULM 5-18 LESS SOA FEEL LESS weak today, she REFUSED SNF labs are consistent with possible heart failure. d/w RN mild hypernatremia htn remains labile inc norvasc to 5 mg po bid iv steroids in the ER, Prognosis guarded. DuoNebs. qid Transmitral Doppler flow pattern is Grade I-abnormal relaxation pattern. echo history of COPD. on home oxygen at 2 liters. Acute on chronic hypoxic respiratory failure secondary to acute on chronic diastolic heart failure, triggered by hypertensive urgency. D/C OK WITH PULM Past Medical History Past Medical History Past Medical History Past Medical History Past Medical History: Anxiety, Bipolar, COPD, Hypertension, Other Additional Past Medical Histor: shingles Past Surgical History: Appendectomy, Cholecystectomy, Hysterectomy Additional Past Surgical Histo: cyst from breast Smoking Status: Former Smoker Alcohol Use: None Drug Use: None PAST MEDICAL HISTORY: Anxiety, bipolar depression, hypertension, COPD, shingles, cholecystectomy, appendectomy, hysterectomy, cyst on her breast, previous tobacco abuse. ALLERGIES: PENICILLIN. FAMILY HISTORY: Hypertension. SOCIAL HISTORY: She used to smoke. No drinking or drugs. She is retired. MEDICATIONS: Reviewed, please refer to the [facility]. Cardiovascular: HTN Pulmonary: Bronchitis, COPD Psych: Anxiety Musculoskeletal: Osteoarthritis Infectious disease: Herpes zoster Renal/: Other Past Surgical History Past Surgical History: Appendectomy, Cholecystectomy, Hysterectomy Family History Family History: Heart Disease Vitals Vitals Vital Signs Date Time Temp Pulse Resp B/P (MAP) Pulse Ox O2 Delivery O2 Flow Rate FiO2 09/17/20 09:12 82 163/67 09/17/20 07:01 96 Nasal Cannula 3.0 09/17/20 07:00 97.6 19 97.6 Physical Exam General: Alert, Oriented X3, Cooperative, No acute distress, mild distress, Other (confused often to details) Heart: Regular rate Lungs: Clear Abdomen: Normal bowel sounds, Soft, No tenderness, No hepatosplenomegaly Extremities: No cyanosis, No edema Assessment and Plan Assessmemt and Plan Problems Medical Problems: (1) Anxiety Status: Acute (2) COPD (chronic obstructive pulmonary disease) Status: Acute Comment Review of Relevant I have reviewed the following items xin (where applicable) has been applied. Labs Laboratory Tests Test 09/15/20 18:45 09/16/20 02:00 09/16/20 05:45 White Blood Count 5.7 x10^3/uL (4.0-11.0) Red Blood Count 4.22 x10^6/uL (3.50-5.40) Hemoglobin 12.2 g/dL (12.0-15.5) Hematocrit 36.5 % (36.0-47.0) Mean Corpuscular Volume 87 fL (79-100) Mean Corpuscular Hemoglobin 29 pg (25-35) Mean Corpuscular Hemoglobin Concent 33 g/dL (31-37) Red Cell Distribution Width 14.9 % (11.5-14.5) Platelet Count 176 x10^3/uL (140-400) Neutrophils (%) (Auto) 67 % (31-73) Lymphocytes (%) (Auto) 19 % (24-48) Monocytes (%) (Auto) 11 % (0-9) Eosinophils (%) (Auto) 2 % (0-3) Basophils (%) (Auto) 0 % (0-3) Neutrophils # (Auto) 3.8 x10^3/uL (1.8-7.7) Lymphocytes # (Auto) 1.1 x10^3/uL (1.0-4.8) Monocytes # (Auto) 0.6 x10^3/uL (0.0-1.1) Eosinophils # (Auto) 0.1 x10^3/uL (0.0-0.7) Basophils # (Auto) 0.0 x10^3/uL (0.0-0.2) Sodium Level 146 mmol/L (136-145) Potassium Level 3.8 mmol/L (3.5-5.1) Chloride Level 106 mmol/L (98-107) Carbon Dioxide Level 33 mmol/L (21-32) Anion Gap 7 (6-14) Blood Urea Nitrogen 22 mg/dL (7-20) Creatinine 0.8 mg/dL (0.6-1.0) Estimated GFR (Cockcroft-Gault) 69.9 BUN/Creatinine Ratio 28 (6-20) Glucose Level 123 mg/dL (70-99) Calcium Level 8.1 mg/dL (8.5-10.1) Total Bilirubin 0.4 mg/dL (0.2-1.0) Aspartate Amino Transf (AST/SGOT) 16 U/L (15-37) Alanine Aminotransferase (ALT/SGPT) 24 U/L (14-59) Alkaline Phosphatase 70 U/L (46-116) Troponin I Quantitative < 0.017 ng/mL (0.000-0.055) < 0.017 ng/mL (0.000-0.055) < 0.017 ng/mL (0.000-0.055) Total Protein 5.9 g/dL (6.4-8.2) Albumin 3.6 g/dL (3.4-5.0) Albumin/Globulin Ratio 1.6 (1.0-1.7) Medications Current Medications Lorazepam (Ativan Inj) 1 mg 1X ONCE IVP Last administered on 09/15/20at 19:02; Start 09/15/20 at 18:30; Stop 09/15/20 at 18:31; Status DC Methylprednisolone Sodium Succinate (SOLU-Medrol 125MG VIAL) 125 mg 1X ONCE IV Last administered on 09/15/20at 23:21; Start 09/15/20 at 23:30; Stop 09/15/20 at 23:31; Status DC Albuterol/ Ipratropium (Duoneb) 3 ml 1X ONCE NEB Last administered on 09/16/20at 00:04; Start 09/15/20 at 23:30; Stop 09/15/20 at 23:31; Status DC Ondansetron HCl (Zofran) 4 mg PRN Q8HRS PRN IV NAUSEA/VOMITING 1ST CHOICE; Start 09/15/20 at 23:30; Stop 09/16/20 at 23:30; Status DC Albuterol/ Ipratropium (Duoneb) 3 ml Q4HRS W/A NEB Last administered on 09/16/20at 11:26; Start 09/16/20 at 06:00; Stop 09/16/20 at 15:03; Status DC Albuterol Sulfate (Ventolin Neb Soln) 2.5 mg PRN Q2HRS PRN NEB SHORTNESS OF BREATH; Start 09/16/20 at 01:30; Stop 09/16/20 at 14:52; Status DC Acetaminophen (Tylenol) 650 mg PRN Q4HRS PRN PO TEMP OVER 100.4F OR MILD PAIN; Start 09/16/20 at 14:45 Albuterol Sulfate (Ventolin Neb Soln) 2.5 mg PRN Q2HRS PRN NEB SHORTNESS OF BREATH; Start 09/16/20 at 14:45 Alprazolam (Xanax) 0.5 mg DAILY PO Last administered on 09/17/20at 09:11; Start 09/16/20 at 15:00 Amlodipine Besylate (Norvasc) 5 mg BID PO Last administered on 09/17/20at 09:11; Start 09/16/20 at 21:00 Aspirin (Ecotrin) 81 mg DAILYWBKFT PO Last administered on 09/17/20at 09:11; Start 09/16/20 at 15:00 Docusate Sodium (Colace) 100 mg PRN BID PRN PO CONSTIPATION; Start 09/16/20 at 14:45 Hydrochlorothiazide (Microzide) 12.5 mg DAILY PO Last administered on 09/17/20at 09:12; Start 09/16/20 at 15:00 Albuterol/ Ipratropium (Duoneb) 3 ml Q4HRS NEB Last administered on 09/17/20at 07:01; Start 09/16/20 at 16:00 Lidocaine (Lidoderm) 1 patch DAILY TD ; Start 09/16/20 at 15:00 Lisinopril (Prinivil) 40 mg DAILY PO Last administered on 09/17/20at 09:12; Start 09/16/20 at 15:00 Olanzapine (ZyPREXA ZYDIS) 5 mg PRN BID PRN PO ANXIETY / AGITATION; Start 09/16/20 at 14:45 Potassium Chloride (Klor-Con) 20 meq DAILYWBKFT PO Last administered on 09/17/20at 09:12; Start 09/16/20 at 15:00 Non-Formulary Medication (Albuterol Sulfate (Albuterol Sulfate Conc Neb Soln)) 1 vial Q2HR NEB ; Start 09/16/20 at 16:00; Status UNV Non-Formulary Medication ([Ipratropium/ Albuterol Sulfate] ) 3 ml RTQID NEB ; Start 09/16/20 at 16:00; Status UNV Miscellaneous (Lidoderm Patch Removal) 1 ea QHS ; Start 09/16/20 at 21:00 Methylprednisolone Sodium Succinate (SOLU-Medrol 125MG VIAL) 80 mg Q8HRS IV Last administered on 09/17/20at 06:30; Start 09/16/20 at 15:00 Furosemide (Lasix) 20 mg DAILY IVP Last administered on 09/17/20at 09:12; Start 09/16/20 at 15:00 Active Scripts Active Xanax (Alprazolam) 0.5 Mg Tablet 1 Tab PO DAILY Lidocaine PATCH (Lidocaine) 1 Each Adh..patch 1 Patch TD DAILY 30 Days Hydrochlorothiazide Capsule (Hydrochlorothiazide) 12.5 Mg Capsule 12.5 Mg PO DAILY 30 Days Klor-Con M20 (Potassium Chloride) 20 Meq Tab.er.prt 20 Meq PO DAILYWBKFT 30 Days Olanzapine Odt (Olanzapine) 5 Mg Tab.rapdis 5 Mg PO PRN BID PRN 30 Days Aspirin Ec (Aspirin) 81 Mg Tablet.dr 81 Mg PO DAILYWBKFT 30 Days Amlodipine Besylate 5 Mg Tablet 5 Mg PO BID 30 Days Proair Hfa (Albuterol Sulfate) 8.5 Gm Hfa.aer.ad 2.5 Mg NEB PRN Q2HRS PRN 30 Days Dok (Docusate Sodium) 100 Mg Capsule 100 Mg PO PRN BID PRN 14 Days Tylenol (Acetaminophen) 325 Mg Tablet 650 Mg PO PRN Q4HRS PRN 14 Days Duoneb 0.5-3(2.5) Mg/3 Ml (Albuterol/Ipratropium) 3 Ml Ampul.neb 3 Ml NEB Q4HRS 30 Days Lisinopril 40 Mg Tablet 40 Mg PO DAILY 30 Days [Ipratropium/Albuterol Sulfate] 3 ML Nebu 3 Ml NEB RTQID Reported Albuterol Sulfate Conc Neb Soln (Albuterol Sulfate) 2.5 Mg/0.5 Ml Vial.neb 1 Vial NEB Q2HR Vitals/I & O Vital Sign - Last 24 Hours 09/16/20 09/16/20 09/16/2021 11:00 11:26 15:00 15:27 Temp 98.0 97.7 98.0 97.7 Pulse 68 79 Resp 18 18 B/P (MAP) 104/50 (68) 167/65 (99) Pulse Ox 98 96 97 O2 Delivery Nasal Cannula Nasal Cannula O2 Flow Rate 5.0 5.0 09/16/20 09/16/20 09/16/20 09/16/20 15:52 19:00 20:00 20:07 Temp 98.4 98.4 Pulse 79 81 Resp 20 B/P (MAP) 167/65 152/68 (96) Pulse Ox 97 96 O2 Delivery Nasal Cannula Nasal Cannula Nasal Cannula O2 Flow Rate 3.0 3.0 3.0 09/16/20 09/16/20 09/17/20 09/17/20 21:04 23:00 03:00 07:00 Temp 97.7 98.4 97.6 97.7 98.4 97.6 Pulse 96 79 82 Resp 20 19 B/P (MAP) 167/65 163/64 (97) 138/57 (84) 163/67 (99) Pulse Ox 94 94 92 O2 Delivery Nasal Cannula Nasal Cannula Nasal Cannula O2 Flow Rate 3.0 3.0 2.0 09/17/20 09/17/20 09/17/20 07:01 09:11 09:12 Pulse 82 82 B/P (MAP) 163/67 163/67 Pulse Ox 96 O2 Delivery Nasal Cannula O2 Flow Rate 3.0 Intake and Output 09/16/20 09/16/20 09/17/20 15:00 23:00 07:00 Intake Total 690 ml 780 ml 600 ml Balance 690 ml 780 ml 600 ml Justicifation of Admission Dx: Justifications for Admission: Justification of Admission Dx: Yes Acute COPD Exacerbation: Acute COPD Exacerbation YOANDY GUTIERREZ MD September 17, 2020 10:11
--- NOTE | 2020-09-17 10:39 | NUR ---
SW following. Discussed with RN, pt still refusing COVID swab for SNF placement. Pt can return home with home health. SW will make a hotline if this happens. Awaiting confirmation of whether pt will discharge home today or not. SW will continue to follow.
[2020-09-17 11:00] VITALS: BP 148/69
[2020-09-17 15:00] VITALS: BP 130/49
[2020-09-17 15:55] LABS: BASO % 0 % (0-3); EOS % 0 % (0-3); HEMATOCRIT 36.5 % (36.0-47.0); LYMPH # 0.3 x10^3/uL (1.0-4.8); LYMPH % 3 % (24-48); MEAN CORPUSCULAR HEMOGLOBIN 29 pg (25-35); MEAN CORPUSCULAR HGB CONC 33 g/dL (31-37); MEAN CORPUSCULAR VOLUME 87 fL (79-100); MONO # 0.3 x10^3/uL (0.0-1.1); MONO % 3 % (0-9); NEUT # 10.1 x10^3/uL (1.8-7.7); NEUT % 94 % (31-73); PLATELET COUNT 222 x10^3/uL (140-400); RED BLOOD COUNT 4.18 x10^6/uL (3.50-5.40); RED CELL DISTRIBUTION WIDTH 14.8 % (11.5-14.5); WHITE BLOOD COUNT 10.7 x10^3/uL (4.0-11.0)
[2020-09-17 16:17] LABS: % LYMPHS 2 % (24-48); % MONOS 1 % (0-10); % SEGS 97 % (35-66); PLT ESTIMATE ADEQUATE (ADEQUATE)
[2020-09-17 16:18] LABS: TOXIC GRANULATION SLIGHT
[2020-09-17 16:19] LABS: ALBUMIN 3.2 g/dL (3.4-5.0); ALBUMIN/GLOBULIN RATIO 1.1 (1.0-1.7); CALCIUM 8.5 mg/dL (8.5-10.1); CREATININE 1.3 mg/dL (0.6-1.0); GFR 39.9; POTASSIUM 3.8 mmol/L (3.5-5.1); TOTAL BILIRUBIN 0.2 mg/dL (0.2-1.0)
[2020-09-17 19:00] VITALS: BP 127/49
[2020-09-17] MEDS: PATCH REMOVAL. MC SCH (20:28)
[2020-09-17 23:00] VITALS: BP 130/56
[2020-09-18 03:00] VITALS: BP 132/55
[2020-09-18] MEDS: IPRATRPIUM/ALBUTEROL 0.5/2.5MG 3 ML NEBU. NEB SCH ×7 (03:20→23:45)
[2020-09-18] MEDS: methylPREDNISolone SOD SUCC PF 125 MG/2 ML VIAL. IV SCH (06:36)
[2020-09-18 07:00] VITALS: BP 140/59
--- NOTE | 2020-09-18 09:34 | PDOC ---
PROGRESS NOTES Date of Service: DATE: 09/18/20 TIME: 09:34 Chief Complaint Chief Complaint VTE Prophylaxis Ordered VTE Prophylaxis Devices: No VTE Pharmacological Prophylaxi: Yes Assessment/Plan Assessment/Plan ASSESSMENT Shortness of breath with acute on chronic heart failure. Transmitral Doppler flow pattern is Grade I-abnormal relaxation pattern. echo history of COPD. HYPERCAPNIC/ HYPOXIC RESPIRATORY FAILURE on home oxygen at 2 liters. right leg pain. improved Chronic RBBB Hypokalemia noncompliance re SNF ADMISSION THIS WEEK, HIGH RISK RE-ADMIT plan admitted. iv steroids consult pulmonary Cardiac monitoring. O2 per nasal cannula. DVT prophylaxis. Home medications, p.r.n. p.r.n. Zofran. Full code. Serial enzymes. Prognosis guarded. DuoNebs. qid PFTs as an outpatient. Echo 09-08 Resume home antiHTN therapy Lung optimization Supportive care outpatient ischemic evaluation PFTs as an outpatient. increase activity PT/OT NEEDS SNF 09-18 LESS SOA FEEL LESS weak today, she REFUSED SNF, refusing covid swab ama labs are consistent with possible heart failure. d/w RN htn remains labile inc norvasc to 5 mg po bid iv steroids in the ER, Prognosis guarded. DuoNebs. qid Transmitral Doppler flow pattern is Grade I-abnormal relaxation pattern. echo history of COPD. on home oxygen at 2 liters. Acute on chronic hypoxic respiratory failure secondary to acute on chronic diastolic heart failure, triggered by hypertensive urgency. taper iv steroids D/W RN Justifications for Admission Justifications for Admission Other Justification History of Present Illness History of Present Illness Identification/Chief Complaint Chief Complaint SOA, CONFUSED History of Present Illness History of Present Illness Seen in room 664 today, confused 75 year old female with past medical history of COPD chronically on 4 L nasal cannula anxiety presents with a chief complaint of anxiety. states she told her neighbor to call 911 because she wanted to be evaluated for anxiety., cannot take care of herfsel at home states she has been anxious because she has not heard from her family particularly her son in the last day or so. EMS states they have BEEN called patient 3 times in the last 24 hours. patient called because she was having difficulty breathing. just discharged 5-18 Shortness of breath with probable acute on chronic heart failure. Grade I-abnormal relaxation pattern. echo history of COPD. HYPERCAPNIC/ HYPOXIC RESPIRATORY FAILURE on home oxygen at 2 liters. Chronic RBBB on09-14 was LESS SOA she REFUSED SNF on last discharge AMA labs are consistent with possible heart failure. recent hospital days as follows;; -17 LESS SOA FEEL very weak today, thinks she may need SNF labs are consistent with possible heart failure. d/w RN mild hypernatremia inc norvasc to 5 mg po bid iv steroids in the ER, Prognosis guarded. DuoNebs. qid Transmitral Doppler flow pattern is Grade I-abnormal relaxation pattern. echo history of COPD. on home oxygen at 2 liters. Acute on chronic hypoxic respiratory failure secondary to acute on chronic diastolic heart failure, triggered by hypertensive urgency. PT/OT D/C SOON D/W PULM 09-14 LESS SOA FEEL LESS weak today, she REFUSED SNF labs are consistent with possible heart failure. d/w RN mild hypernatremia htn remains labile inc norvasc to 5 mg po bid iv steroids in the ER, Prognosis guarded. DuoNebs. qid Transmitral Doppler flow pattern is Grade I-abnormal relaxation pattern. echo history of COPD. on home oxygen at 2 liters. Acute on chronic hypoxic respiratory failure secondary to acute on chronic diastolic heart failure, triggered by hypertensive urgency. D/C OK WITH PULM Past Medical History Past Medical History Past Medical History Past Medical History Past Medical History: Anxiety, Bipolar, COPD, Hypertension, Other Additional Past Medical Histor: shingles Past Surgical History: Appendectomy, Cholecystectomy, Hysterectomy Additional Past Surgical Histo: cyst from breast Smoking Status: Former Smoker Alcohol Use: None Drug Use: None PAST MEDICAL HISTORY: Anxiety, bipolar depression, hypertension, COPD, shingles, cholecystectomy, appendectomy, hysterectomy, cyst on her breast, previous tobacco abuse. ALLERGIES: PENICILLIN. FAMILY HISTORY: Hypertension. SOCIAL HISTORY: She used to smoke. No drinking or drugs. She is retired. MEDICATIONS: Reviewed, please refer to the [facility]. Cardiovascular: HTN Pulmonary: Bronchitis, COPD Psych: Anxiety Musculoskeletal: Osteoarthritis Infectious disease: Herpes zoster Renal/: Other Past Surgical History Past Surgical History: Appendectomy, Cholecystectomy, Hysterectomy Family History Family History: Heart Disease Vitals Vitals Vital Signs Date Time Temp Pulse Resp B/P (MAP) Pulse Ox O2 Delivery O2 Flow Rate FiO2 09/18/20 07:53 90 Nasal Cannula 2.0 09/18/20 07:00 98.0 76 20 140/59 (86) 98.0 Physical Exam Physical Exam confused to dates and last admission goals General: Alert, Oriented X3, Cooperative, No acute distress, mild distress, Other (confused often to details) Heart: Regular rate Lungs: Clear Abdomen: Normal bowel sounds, Soft, No tenderness, No hepatosplenomegaly Extremities: No cyanosis, No edema Skin: No rashes, No significant lesion Labs LABS Source of Information * Nursing * Medical Record Areas of Deficit/Decline in Function * Mobility * ADLs * IADLs Recommendations for Rehab Services * O.T. Eval and Treat * P.T. Eval and Treat Other Information * Orders recieved, chart review, Pt was recently here and required assistance with safety, functional mobility and ADLs. RN stated pt is unsteady with mobility. Pt would benefit from OT/PT eval, please order OT/PT for eval. RN aware Laboratory Tests Test 09/17/20 15:45 White Blood Count 10.7 x10^3/uL (4.0-11.0) Red Blood Count 4.18 x10^6/uL (3.50-5.40) Hemoglobin 12.0 g/dL (12.0-15.5) Hematocrit 36.5 % (36.0-47.0) Mean Corpuscular Volume 87 fL (79-100) Mean Corpuscular Hemoglobin 29 pg (25-35) Mean Corpuscular Hemoglobin Concent 33 g/dL (31-37) Red Cell Distribution Width 14.8 % (11.5-14.5) Platelet Count 222 x10^3/uL (140-400) Neutrophils (%) (Auto) 94 % (31-73) Lymphocytes (%) (Auto) 3 % (24-48) Monocytes (%) (Auto) 3 % (0-9) Eosinophils (%) (Auto) 0 % (0-3) Basophils (%) (Auto) 0 % (0-3) Neutrophils # (Auto) 10.1 x10^3/uL (1.8-7.7) Lymphocytes # (Auto) 0.3 x10^3/uL (1.0-4.8) Monocytes # (Auto) 0.3 x10^3/uL (0.0-1.1) Eosinophils # (Auto) 0.0 x10^3/uL (0.0-0.7) Basophils # (Auto) 0.0 x10^3/uL (0.0-0.2) Segmented Neutrophils % 97 % (35-66) Lymphocytes % 2 % (24-48) Monocytes % 1 % (0-10) Toxic Granulation Slight Platelet Estimate Adequate (ADEQUATE) Sodium Level 145 mmol/L (136-145) Potassium Level 3.8 mmol/L (3.5-5.1) Chloride Level 105 mmol/L (98-107) Carbon Dioxide Level 38 mmol/L (21-32) Anion Gap 2 (6-14) Blood Urea Nitrogen 29 mg/dL (7-20) Creatinine 1.3 mg/dL (0.6-1.0) Estimated GFR (Cockcroft-Gault) 39.9 BUN/Creatinine Ratio 22 (6-20) Glucose Level 196 mg/dL (70-99) Calcium Level 8.5 mg/dL (8.5-10.1) Total Bilirubin 0.2 mg/dL (0.2-1.0) Aspartate Amino Transf (AST/SGOT) 9 U/L (15-37) Alanine Aminotransferase (ALT/SGPT) 19 U/L (14-59) Alkaline Phosphatase 60 U/L (46-116) Total Protein 6.0 g/dL (6.4-8.2) Albumin 3.2 g/dL (3.4-5.0) Albumin/Globulin Ratio 1.1 (1.0-1.7) Assessment and Plan Assessmemt and Plan Problems Medical Problems: (1) Anxiety Status: Acute (2) COPD (chronic obstructive pulmonary disease) Status: Acute Comment Review of Relevant I have reviewed the following items xin (where applicable) has been applied. Labs Laboratory Tests Test 09/17/20 15:45 White Blood Count 10.7 x10^3/uL (4.0-11.0) Red Blood Count 4.18 x10^6/uL (3.50-5.40) Hemoglobin 12.0 g/dL (12.0-15.5) Hematocrit 36.5 % (36.0-47.0) Mean Corpuscular Volume 87 fL (79-100) Mean Corpuscular Hemoglobin 29 pg (25-35) Mean Corpuscular Hemoglobin Concent 33 g/dL (31-37) Red Cell Distribution Width 14.8 % (11.5-14.5) Platelet Count 222 x10^3/uL (140-400) Neutrophils (%) (Auto) 94 % (31-73) Lymphocytes (%) (Auto) 3 % (24-48) Monocytes (%) (Auto) 3 % (0-9) Eosinophils (%) (Auto) 0 % (0-3) Basophils (%) (Auto) 0 % (0-3) Neutrophils # (Auto) 10.1 x10^3/uL (1.8-7.7) Lymphocytes # (Auto) 0.3 x10^3/uL (1.0-4.8) Monocytes # (Auto) 0.3 x10^3/uL (0.0-1.1) Eosinophils # (Auto) 0.0 x10^3/uL (0.0-0.7) Basophils # (Auto) 0.0 x10^3/uL (0.0-0.2) Segmented Neutrophils % 97 % (35-66) Lymphocytes % 2 % (24-48) Monocytes % 1 % (0-10) Toxic Granulation Slight Platelet Estimate Adequate (ADEQUATE) Sodium Level 145 mmol/L (136-145) Potassium Level 3.8 mmol/L (3.5-5.1) Chloride Level 105 mmol/L (98-107) Carbon Dioxide Level 38 mmol/L (21-32) Anion Gap 2 (6-14) Blood Urea Nitrogen 29 mg/dL (7-20) Creatinine 1.3 mg/dL (0.6-1.0) Estimated GFR (Cockcroft-Gault) 39.9 BUN/Creatinine Ratio 22 (6-20) Glucose Level 196 mg/dL (70-99) Calcium Level 8.5 mg/dL (8.5-10.1) Total Bilirubin 0.2 mg/dL (0.2-1.0) Aspartate Amino Transf (AST/SGOT) 9 U/L (15-37) Alanine Aminotransferase (ALT/SGPT) 19 U/L (14-59) Alkaline Phosphatase 60 U/L (46-116) Total Protein 6.0 g/dL (6.4-8.2) Albumin 3.2 g/dL (3.4-5.0) Albumin/Globulin Ratio 1.1 (1.0-1.7) Laboratory Tests Test 09/17/20 15:45 White Blood Count 10.7 x10^3/uL (4.0-11.0) Red Blood Count 4.18 x10^6/uL (3.50-5.40) Hemoglobin 12.0 g/dL (12.0-15.5) Hematocrit 36.5 % (36.0-47.0) Mean Corpuscular Volume 87 fL (79-100) Mean Corpuscular Hemoglobin 29 pg (25-35) Mean Corpuscular Hemoglobin Concent 33 g/dL (31-37) Red Cell Distribution Width 14.8 % (11.5-14.5) Platelet Count 222 x10^3/uL (140-400) Neutrophils (%) (Auto) 94 % (31-73) Lymphocytes (%) (Auto) 3 % (24-48) Monocytes (%) (Auto) 3 % (0-9) Eosinophils (%) (Auto) 0 % (0-3) Basophils (%) (Auto) 0 % (0-3) Neutrophils # (Auto) 10.1 x10^3/uL (1.8-7.7) Lymphocytes # (Auto) 0.3 x10^3/uL (1.0-4.8) Monocytes # (Auto) 0.3 x10^3/uL (0.0-1.1) Eosinophils # (Auto) 0.0 x10^3/uL (0.0-0.7) Basophils # (Auto) 0.0 x10^3/uL (0.0-0.2) Segmented Neutrophils % 97 % (35-66) Lymphocytes % 2 % (24-48) Monocytes % 1 % (0-10) Toxic Granulation Slight Platelet Estimate Adequate (ADEQUATE) Sodium Level 145 mmol/L (136-145) Potassium Level 3.8 mmol/L (3.5-5.1) Chloride Level 105 mmol/L (98-107) Carbon Dioxide Level 38 mmol/L (21-32) Anion Gap 2 (6-14) Blood Urea Nitrogen 29 mg/dL (7-20) Creatinine 1.3 mg/dL (0.6-1.0) Estimated GFR (Cockcroft-Gault) 39.9 BUN/Creatinine Ratio 22 (6-20) Glucose Level 196 mg/dL (70-99) Calcium Level 8.5 mg/dL (8.5-10.1) Total Bilirubin 0.2 mg/dL (0.2-1.0) Aspartate Amino Transf (AST/SGOT) 9 U/L (15-37) Alanine Aminotransferase (ALT/SGPT) 19 U/L (14-59) Alkaline Phosphatase 60 U/L (46-116) Total Protein 6.0 g/dL (6.4-8.2) Albumin 3.2 g/dL (3.4-5.0) Albumin/Globulin Ratio 1.1 (1.0-1.7) Medications Current Medications Lorazepam (Ativan Inj) 1 mg 1X ONCE IVP Last administered on 09/15/20at 19:02; Start 09/15/20 at 18:30; Stop 09/15/20 at 18:31; Status DC Methylprednisolone Sodium Succinate (SOLU-Medrol 125MG VIAL) 125 mg 1X ONCE IV Last administered on 09/15/20at 23:21; Start 09/15/20 at 23:30; Stop 09/15/20 at 23:31; Status DC Albuterol/ Ipratropium (Duoneb) 3 ml 1X ONCE NEB Last administered on 09/16/20at 00:04; Start 09/15/20 at 23:30; Stop 09/15/20 at 23:31; Status DC Ondansetron HCl (Zofran) 4 mg PRN Q8HRS PRN IV NAUSEA/VOMITING 1ST CHOICE; Start 09/15/20 at 23:30; Stop 09/16/20 at 23:30; Status DC Albuterol/ Ipratropium (Duoneb) 3 ml Q4HRS W/A NEB Last administered on 09/16/20at 11:26; Start 09/16/20 at 06:00; Stop 09/16/20 at 15:03; Status DC Albuterol Sulfate (Ventolin Neb Soln) 2.5 mg PRN Q2HRS PRN NEB SHORTNESS OF BREATH; Start 09/16/20 at 01:30; Stop 09/16/20 at 14:52; Status DC Acetaminophen (Tylenol) 650 mg PRN Q4HRS PRN PO TEMP OVER 100.4F OR MILD PAIN; Start 09/16/20 at 14:45 Albuterol Sulfate (Ventolin Neb Soln) 2.5 mg PRN Q2HRS PRN NEB SHORTNESS OF BREATH Last administered on 09/17/20at 10:28; Start 09/16/20 at 14:45 Alprazolam (Xanax) 0.5 mg DAILY PO Last administered on 09/17/20 09:11; Start 09/16/20 at 15:00 Amlodipine Besylate (Norvasc) 5 mg BID PO Last administered on 09/17/20 20:27; Start 09/16/20 at 21:00 Aspirin (Ecotrin) 81 mg DAILYWBKFT PO Last administered on 09/17/20 09:11; Start 09/16/20 at 15:00 Docusate Sodium (Colace) 100 mg PRN BID PRN PO CONSTIPATION; Start 09/16/20 at 14:45 Hydrochlorothiazide (Microzide) 12.5 mg DAILY PO Last administered on 09/17/20at 09:12; Start 09/16/20 at 15:00 Albuterol/ Ipratropium (Duoneb) 3 ml Q4HRS NEB Last administered on 09/18/20at 07:50; Start 09/16/20 at 16:00 Lidocaine (Lidoderm) 1 patch DAILY TD ; Start 09/16/20 at 15:00 Lisinopril (Prinivil) 40 mg DAILY PO Last administered on 09/17/20 09:12; Start 09/16/20 at 15:00 Olanzapine (ZyPREXA ZYDIS) 5 mg PRN BID PRN PO ANXIETY / AGITATION Last administered on 09/17/20 20:26; Start 09/16/20 at 14:45 Potassium Chloride (Klor-Con) 20 meq DAILYWBKFT PO Last administered on 09/17/20at 09:12; Start 09/16/20 at 15:00 Non-Formulary Medication (Albuterol Sulfate (Albuterol Sulfate Conc Neb Soln)) 1 vial Q2HR NEB ; Start 09/16/20 at 16:00; Status UNV Non-Formulary Medication ([Ipratropium/ Albuterol Sulfate] ) 3 ml RTQID NEB ; Start 09/16/20 at 16:00; Status UNV Miscellaneous (Lidoderm Patch Removal) 1 ea QHS ; Start 09/16/20 at 21:00 Methylprednisolone Sodium Succinate (SOLU-Medrol 125MG VIAL) 80 mg Q8HRS IV Last administered on 09/18/20at 06:36; Start 09/16/20 at 15:00 Furosemide (Lasix) 20 mg DAILY IVP Last administered on 09/17/20at 09:12; Start 09/16/20 at 15:00 Active Scripts Active Xanax (Alprazolam) 0.5 Mg Tablet 1 Tab PO DAILY Lidocaine PATCH (Lidocaine) 1 Each Adh..patch 1 Patch TD DAILY 30 Days Hydrochlorothiazide Capsule (Hydrochlorothiazide) 12.5 Mg Capsule 12.5 Mg PO DAILY 30 Days Klor-Con M20 (Potassium Chloride) 20 Meq Tab.er.prt 20 Meq PO DAILYWBKFT 30 Days Olanzapine Odt (Olanzapine) 5 Mg Tab.rapdis 5 Mg PO PRN BID PRN 30 Days Aspirin Ec (Aspirin) 81 Mg Tablet.dr 81 Mg PO DAILYWBKFT 30 Days Amlodipine Besylate 5 Mg Tablet 5 Mg PO BID 30 Days Proair Hfa (Albuterol Sulfate) 8.5 Gm Hfa.aer.ad 2.5 Mg NEB PRN Q2HRS PRN 30 Days Dok (Docusate Sodium) 100 Mg Capsule 100 Mg PO PRN BID PRN 14 Days Tylenol (Acetaminophen) 325 Mg Tablet 650 Mg PO PRN Q4HRS PRN 14 Days Duoneb 0.5-3(2.5) Mg/3 Ml (Albuterol/Ipratropium) 3 Ml Ampul.neb 3 Ml NEB Q4HRS 30 Days Lisinopril 40 Mg Tablet 40 Mg PO DAILY 30 Days [Ipratropium/Albuterol Sulfate] 3 ML Nebu 3 Ml NEB RTQID Reported Albuterol Sulfate Conc Neb Soln (Albuterol Sulfate) 2.5 Mg/0.5 Ml Vial.neb 1 Vial NEB Q2HR Vitals/I & O Vital Sign - Last 24 Hours 09/17/20 09/17/20 09/17/20 09/17/20 10:28 11:00 15:00 15:17 Temp 97.5 97.8 97.5 97.8 Pulse 85 82 Resp 19 18 B/P (MAP) 148/69 (95) 130/49 (76) Pulse Ox 96 98 96 96 O2 Delivery Nasal Cannula Nasal Cannula Nasal Cannula Nasal Cannula O2 Flow Rate 3.0 2.0 5.0 3.0 09/17/20 09/17/20 09/17/20 09/17/20 19:00 20:00 20:27 20:47 Temp 97.4 97.4 Pulse 56 Resp 18 B/P (MAP) 127/49 (75) 130/49 Pulse Ox 95 93 O2 Delivery Nasal Cannula Nasal Cannula Nasal Cannula O2 Flow Rate 3.0 2.0 2.0 09/17/20 09/18/20 09/18/20 09/18/20 23:00 00:41 03:00 03:20 Temp 97.6 98.5 97.6 98.5 Pulse 80 78 Resp 16 16 B/P (MAP) 130/56 (80) 132/55 (80) Pulse Ox 91 93 91 93 O2 Delivery Nasal Cannula Nasal Cannula Nasal Cannula Nasal Cannula O2 Flow Rate 2.0 2.0 2.0 2.0 09/18/20 09/18/20 07:00 07:53 Temp 98.0 98.0 Pulse 76 Resp 20 B/P (MAP) 140/59 (86) Pulse Ox 94 90 O2 Delivery Nasal Cannula Nasal Cannula O2 Flow Rate 2.0 2.0 Intake and Output 09/17/20 09/17/20 09/18/20 15:00 23:00 07:00 Intake Total 800 ml 300 ml Balance 800 ml 300 ml Justicifation of Admission Dx: Justifications for Admission: Justification of Admission Dx: Yes Acute COPD Exacerbation: Acute COPD Exacerbation YOANDY GUTIERREZ MD September 18, 2020 09:34
[2020-09-18] MEDS: hydroCHLOROthiazide 12.5 MG CAPSULE PO SCH (09:44)
[2020-09-18] MEDS: ALPRAZolam 0.5 MG TABLET PO SCH (09:44)
[2020-09-18] MEDS: ASPIRIN ENTERIC COATED 81 MG TABLET.DR. PO SCH (09:45)
[2020-09-18] MEDS: POTASSIUM CHLORIDE 20 MEQ TABLET.ER. PO SCH (09:45)
[2020-09-18] MEDS: FUROSEMIDE 20 MG/2 ML VIAL. IVP SCH (09:45)
[2020-09-18] MEDS: LISINOPRIL 20 MG TABLET PO SCH (09:46)
[2020-09-18] MEDS: amLODIPine BESYLATE 5 MG TABLET PO SCH ×2 (09:47→20:54)
[2020-09-18] MEDS: LIDOCAINE (700MG/PATCH) PATCH. TD SCH (09:48)
[2020-09-18 11:06] VITALS: BP 136/65
[2020-09-18 15:37] VITALS: BP 136/52
[2020-09-18 19:00] VITALS: BP 135/61
[2020-09-18] MEDS: methylPREDNISolone SOD SUCC PF 40 MG/ML VIAL. IV SCH (20:54)
[2020-09-18] MEDS: PATCH REMOVAL. MC SCH (20:55)
[2020-09-18 23:00] VITALS: BP 123/60
[2020-09-19 03:06] VITALS: BP 134/74
[2020-09-19] MEDS: IPRATRPIUM/ALBUTEROL 0.5/2.5MG 3 ML NEBU. NEB SCH ×5 (04:00→18:24)
[2020-09-19 07:00] VITALS: BP 114/66
[2020-09-19] MEDS: LIDOCAINE (700MG/PATCH) PATCH. TD SCH (09:00)
[2020-09-19] MEDS: POTASSIUM CHLORIDE 20 MEQ TABLET.ER. PO SCH (10:04)
[2020-09-19] MEDS: hydroCHLOROthiazide 12.5 MG CAPSULE PO SCH (10:04)
[2020-09-19] MEDS: ASPIRIN ENTERIC COATED 81 MG TABLET.DR. PO SCH (10:04)
[2020-09-19] MEDS: LISINOPRIL 20 MG TABLET PO SCH (10:05)
[2020-09-19] MEDS: amLODIPine BESYLATE 5 MG TABLET PO SCH ×2 (10:05→21:14)
[2020-09-19] MEDS: FUROSEMIDE 20 MG/2 ML VIAL. IVP SCH (10:06)
[2020-09-19] MEDS: ALPRAZolam 0.5 MG TABLET PO SCH (10:06)
[2020-09-19] MEDS: methylPREDNISolone SOD SUCC PF 40 MG/ML VIAL. IV SCH ×2 (10:06→21:14)
--- NOTE | 2020-09-19 10:43 | PDOC ---
PROGRESS NOTES Date of Service: DATE: 09/19/20 TIME: 10:41 Chief Complaint Chief Complaint VTE Prophylaxis Ordered VTE Prophylaxis Devices: No VTE Pharmacological Prophylaxi: Yes Assessment/Plan Assessment/Plan ASSESSMENT Shortness of breath with acute on chronic heart failure. Transmitral Doppler flow pattern is Grade I-abnormal relaxation pattern. echo history of COPD. HYPERCAPNIC/ HYPOXIC RESPIRATORY FAILURE on home oxygen at 2 liters. right leg pain. improved Chronic RBBB Hypokalemia noncompliance re SNF ADMISSION THIS WEEK, HIGH RISK RE-ADMIT plan admitted. iv steroids consult pulmonary Cardiac monitoring. O2 per nasal cannula. DVT prophylaxis. Home medications, p.r.n. p.r.n. Zofran. Full code. Serial enzymes. Prognosis guarded. DuoNebs. qid PFTs as an outpatient. Echo 09-08 Resume home antiHTN therapy Lung optimization Supportive care outpatient ischemic evaluation PFTs as an outpatient. increase activity PT/OT NEEDS SNF 5 LESS SOA FEEL LESS weak today, she REFUSED SNF, refusing covid swab [facility] walking [facility] with pt seems confused at times labs are consistent with possible heart failure. d/w RN htn remains labile inc norvasc to 5 mg po bid iv steroids in the ER, Prognosis guarded. DuoNebs. qid Transmitral Doppler flow pattern is Grade I-abnormal relaxation pattern. echo history of COPD. on home oxygen at 2 liters. Acute on chronic hypoxic respiratory failure secondary to acute on chronic diastolic heart failure, triggered by hypertensive urgency. taper iv steroids to po D/C TO SNF TODAY D/C PLANNING 35 MIN 5-22 LESS SOA FEEL LESS weak today, she REFUSED SNF, refusing covid swab ama labs are consistent with possible heart failure. d/w RN htn remains labile inc norvasc to 5 mg po bid iv steroids in the ER, Prognosis guarded. DuoNebs. qid Transmitral Doppler flow pattern is Grade I-abnormal relaxation pattern. echo history of COPD. on home oxygen at 2 liters. Acute on chronic hypoxic respiratory failure secondary to acute on chronic diastolic heart failure, triggered by hypertensive urgency. taper iv steroids D/W RN Justifications for Admission Justifications for Admission Other Justification History of Present Illness History of Present Illness Identification/Chief Complaint Chief Complaint SOA, CONFUSED History of Present Illness History of Present Illness Seen in room 664 today, confused 75 year old female with past medical history of COPD chronically on 4 L nasal cannula anxiety presents with a chief complaint of anxiety. states she told her neighbor to call 911 because she wanted to be evaluated for anxiety., cannot take care of herfsel at home states she has been anxious because she has not heard from her family particularly her son in the last day or so. EMS states they have BEEN called patient 3 times in the last 24 hours. patient called because she was having difficulty breathing. just discharged 09-14 Shortness of breath with probable acute on chronic heart failure. Grade I-abnormal relaxation pattern. echo history of COPD. HYPERCAPNIC/ HYPOXIC RESPIRATORY FAILURE on home oxygen at 2 liters. Chronic RBBB on09-14 was LESS SOA she REFUSED SNF on last discharge [facility] labs are consistent with possible heart failure. recent hospital days as follows;; 09-13 LESS SOA FEEL very weak today, thinks she may need SNF labs are consistent with possible heart failure. d/w RN mild hypernatremia inc norvasc to 5 mg po bid iv steroids in the ER, Prognosis guarded. DuoNebs. qid Transmitral Doppler flow pattern is Grade I-abnormal relaxation pattern. echo history of COPD. on home oxygen at 2 liters. Acute on chronic hypoxic respiratory failure secondary to acute on chronic diastolic heart failure, triggered by hypertensive urgency. PT/OT D/C SOON D/W PULM 09-14 LESS SOA FEEL LESS weak today, she REFUSED SNF labs are consistent with possible heart failure. d/w RN mild hypernatremia htn remains labile inc norvasc to 5 mg po bid iv steroids in the ER, Prognosis guarded. DuoNebs. qid Transmitral Doppler flow pattern is Grade I-abnormal relaxation pattern. echo history of COPD. on home oxygen at 2 liters. Acute on chronic hypoxic respiratory failure secondary to acute on chronic diastolic heart failure, triggered by hypertensive urgency. D/C OK WITH PULM Past Medical History Past Medical History Past Medical History Past Medical History Past Medical History: Anxiety, Bipolar, COPD, Hypertension, Other Additional Past Medical Histor: shingles Past Surgical History: Appendectomy, Cholecystectomy, Hysterectomy Additional Past Surgical Histo: cyst from breast Smoking Status: Former Smoker Alcohol Use: None Drug Use: None PAST MEDICAL HISTORY: Anxiety, bipolar depression, hypertension, COPD, shingles, cholecystectomy, appendectomy, hysterectomy, cyst on her breast, previous tobacco abuse. ALLERGIES: PENICILLIN. FAMILY HISTORY: Hypertension. SOCIAL HISTORY: She used to smoke. No drinking or drugs. She is retired. MEDICATIONS: Reviewed, please refer to the [facility]. Cardiovascular: HTN Pulmonary: Bronchitis, COPD Psych: Anxiety Musculoskeletal: Osteoarthritis Infectious disease: Herpes zoster Renal/: Other Past Surgical History Past Surgical History: Appendectomy, Cholecystectomy, Hysterectomy Family History Family History: Heart Disease Vitals Vitals Vital Signs Date Time Temp Pulse Resp B/P (MAP) Pulse Ox O2 Delivery O2 Flow Rate FiO2 09/19/20 10:05 114/66 09/19/20 07:36 97 Nasal Cannula 5.0 09/19/20 07:00 97.8 69 18 97.8 Physical Exam Physical Exam confused to dates and last admission goals General: Alert, Oriented X3, Cooperative, No acute distress, mild distress, Other (confused often to details) Heart: Regular rate Lungs: Clear Abdomen: Normal bowel sounds, Soft, No tenderness, No hepatosplenomegaly Extremities: No cyanosis, No edema Skin: No rashes, No significant lesion Assessment and Plan Assessmemt and Plan Problems Medical Problems: (1) Anxiety Status: Acute (2) COPD (chronic obstructive pulmonary disease) Status: Acute Comment Review of Relevant I have reviewed the following items xin (where applicable) has been applied. Labs Laboratory Tests Test 09/17/20 15:45 White Blood Count 10.7 x10^3/uL (4.0-11.0) Red Blood Count 4.18 x10^6/uL (3.50-5.40) Hemoglobin 12.0 g/dL (12.0-15.5) Hematocrit 36.5 % (36.0-47.0) Mean Corpuscular Volume 87 fL (79-100) Mean Corpuscular Hemoglobin 29 pg (25-35) Mean Corpuscular Hemoglobin Concent 33 g/dL (31-37) Red Cell Distribution Width 14.8 % (11.5-14.5) Platelet Count 222 x10^3/uL (140-400) Neutrophils (%) (Auto) 94 % (31-73) Lymphocytes (%) (Auto) 3 % (24-48) Monocytes (%) (Auto) 3 % (0-9) Eosinophils (%) (Auto) 0 % (0-3) Basophils (%) (Auto) 0 % (0-3) Neutrophils # (Auto) 10.1 x10^3/uL (1.8-7.7) Lymphocytes # (Auto) 0.3 x10^3/uL (1.0-4.8) Monocytes # (Auto) 0.3 x10^3/uL (0.0-1.1) Eosinophils # (Auto) 0.0 x10^3/uL (0.0-0.7) Basophils # (Auto) 0.0 x10^3/uL (0.0-0.2) Segmented Neutrophils % 97 % (35-66) Lymphocytes % 2 % (24-48) Monocytes % 1 % (0-10) Toxic Granulation Slight Platelet Estimate Adequate (ADEQUATE) Sodium Level 145 mmol/L (136-145) Potassium Level 3.8 mmol/L (3.5-5.1) Chloride Level 105 mmol/L (98-107) Carbon Dioxide Level 38 mmol/L (21-32) Anion Gap 2 (6-14) Blood Urea Nitrogen 29 mg/dL (7-20) Creatinine 1.3 mg/dL (0.6-1.0) Estimated GFR (Cockcroft-Gault) 39.9 BUN/Creatinine Ratio 22 (6-20) Glucose Level 196 mg/dL (70-99) Calcium Level 8.5 mg/dL (8.5-10.1) Total Bilirubin 0.2 mg/dL (0.2-1.0) Aspartate Amino Transf (AST/SGOT) 9 U/L (15-37) Alanine Aminotransferase (ALT/SGPT) 19 U/L (14-59) Alkaline Phosphatase 60 U/L (46-116) Total Protein 6.0 g/dL (6.4-8.2) Albumin 3.2 g/dL (3.4-5.0) Albumin/Globulin Ratio 1.1 (1.0-1.7) Medications Current Medications Lorazepam (Ativan Inj) 1 mg 1X ONCE IVP Last administered on 09/15/20at 19:02; Start 09/15/20 at 18:30; Stop 09/15/20 at 18:31; Status DC Methylprednisolone Sodium Succinate (SOLU-Medrol 125MG VIAL) 125 mg 1X ONCE IV Last administered on 09/15/20at 23:21; Start 09/15/20 at 23:30; Stop 09/15/20 at 23:31; Status DC Albuterol/ Ipratropium (Duoneb) 3 ml 1X ONCE NEB Last administered on 09/16/20at 00:04; Start 09/15/20 at 23:30; Stop 09/15/20 at 23:31; Status DC Ondansetron HCl (Zofran) 4 mg PRN Q8HRS PRN IV NAUSEA/VOMITING 1ST CHOICE; Start 09/15/20 at 23:30; Stop 09/16/20 at 23:30; Status DC Albuterol/ Ipratropium (Duoneb) 3 ml Q4HRS W/A NEB Last administered on at 11:26; Start 09/16/20 at 06:00; Stop 09/16/20 at 15:03; Status DC Albuterol Sulfate (Ventolin Neb Soln) 2.5 mg PRN Q2HRS PRN NEB SHORTNESS OF BREATH; Start 09/16/20 at 01:30; Stop 09/16/20 at 14:52; Status DC Acetaminophen (Tylenol) 650 mg PRN Q4HRS PRN PO TEMP OVER 100.4F OR MILD PAIN; Start 09/16/20 at 14:45 Albuterol Sulfate (Ventolin Neb Soln) 2.5 mg PRN Q2HRS PRN NEB SHORTNESS OF BREATH Last administered on 09/17/20at 10:28; Start 09/16/20 at 14:45 Alprazolam (Xanax) 0.5 mg DAILY PO Last administered on 09/19/20at 10:06; Start 09/16/20 at 15:00 Amlodipine Besylate (Norvasc) 5 mg BID PO Last administered on 09/19/20at 10:05; Start 09/16/20 at 21:00 Aspirin (Ecotrin) 81 mg DAILYWBKFT PO Last administered on 09/19/20at 10:04; Start 09/16/20 at 15:00 Docusate Sodium (Colace) 100 mg PRN BID PRN PO CONSTIPATION; Start 09/16/20 at 14:45 Hydrochlorothiazide (Microzide) 12.5 mg DAILY PO Last administered on 09/19/20at 10:04; Start 09/16/20 at 15:00 Albuterol/ Ipratropium (Duoneb) 3 ml Q4HRS NEB Last administered on 09/19/20at 07:34; Start 09/16/20 at 16:00 Lidocaine (Lidoderm) 1 patch DAILY TD Last administered on 09/18/20at 09:48; Start 09/16/20 at 15:00 Lisinopril (Prinivil) 40 mg DAILY PO Last administered on 09/19/20at 10:05; Start 09/16/20 at 15:00 Olanzapine (ZyPREXA ZYDIS) 5 mg PRN BID PRN PO ANXIETY / AGITATION Last administered on 09/18/20at 15:31; Start 09/16/20 at 14:45 Potassium Chloride (Klor-Con) 20 meq DAILYWBKFT PO Last administered on 09/19/20at 10:04; Start 09/16/20 at 15:00 Non-Formulary Medication (Albuterol Sulfate (Albuterol Sulfate Conc Neb Soln)) 1 vial Q2HR NEB ; Start 09/16/20 at 16:00; Status UNV Non-Formulary Medication ([Ipratropium/ Albuterol Sulfate] ) 3 ml RTQID NEB ; Start 09/16/20 at 16:00; Status UNV Miscellaneous (Lidoderm Patch Removal) 1 ea QHS ; Start 09/16/20 at 21:00 Methylprednisolone Sodium Succinate (SOLU-Medrol 125MG VIAL) 80 mg Q8HRS IV Last administered on 09/18/20at 06:36; Start 09/16/20 at 15:00; Stop 09/18/20 at 12:25; Status DC Furosemide (Lasix) 20 mg DAILY IVP Last administered on 09/19/20at 10:06; Start 09/16/20 at 15:00 Methylprednisolone Sodium Succinate (SOLU-Medrol 40MG VIAL) 40 mg BID IV Last administered on 09/19/20at 10:06; Start 09/18/20 at 21:00 Active Scripts Active Xanax (Alprazolam) 0.5 Mg Tablet 1 Tab PO DAILY Lidocaine PATCH (Lidocaine) 1 Each Adh..patch 1 Patch TD DAILY 30 Days Hydrochlorothiazide Capsule (Hydrochlorothiazide) 12.5 Mg Capsule 12.5 Mg PO DAILY 30 Days Klor-Con M20 (Potassium Chloride) 20 Meq Tab.er.prt 20 Meq PO DAILYWBKFT 30 Days Olanzapine Odt (Olanzapine) 5 Mg Tab.rapdis 5 Mg PO PRN BID PRN 30 Days Aspirin Ec (Aspirin) 81 Mg Tablet.dr 81 Mg PO DAILYWBKFT 30 Days Amlodipine Besylate 5 Mg Tablet 5 Mg PO BID 30 Days Proair Hfa (Albuterol Sulfate) 8.5 Gm Hfa.aer.ad 2.5 Mg NEB PRN Q2HRS PRN 30 Days Dok (Docusate Sodium) 100 Mg Capsule 100 Mg PO PRN BID PRN 14 Days Tylenol (Acetaminophen) 325 Mg Tablet 650 Mg PO PRN Q4HRS PRN 14 Days Duoneb 0.5-3(2.5) Mg/3 Ml (Albuterol/Ipratropium) 3 Ml Ampul.neb 3 Ml NEB Q4HRS 30 Days Lisinopril 40 Mg Tablet 40 Mg PO DAILY 30 Days [Ipratropium/Albuterol Sulfate] 3 ML Nebu 3 Ml NEB RTQID Reported Albuterol Sulfate Conc Neb Soln (Albuterol Sulfate) 2.5 Mg/0.5 Ml Vial.neb 1 Via l NEB Q2HR Vitals/I & O Vital Sign - Last 24 Hours 09/18/20 09/18/20 09/18/20 09/18/20 11:06 11:10 15:35 15:37 Temp 98.0 98.0 98.0 98.0 Pulse 80 85 Resp 20 20 B/P (MAP) 136/65 (88) 136/52 (80) Pulse Ox 97 96 O2 Delivery Nasal Cannula Nasal Cannula Nasal Cannula Nasal Cannula O2 Flow Rate 2.0 2.0 2.0 2.0 09/18/20 09/18/20 09/18/20 09/18/20 19:00 20:05 20:54 21:23 Temp 97.6 97.6 Pulse 94 94 Resp 20 B/P (MAP) 135/61 (85) 135/61 Pulse Ox 95 96 O2 Delivery Nasal Cannula Nasal Cannula Nasal Cannula O2 Flow Rate 5.0 5.0 5/09/18/20 09/19/20 09/19/20 23:00 23:45 03:06 07:00 Temp 98.2 97.5 97.8 98.2 97.5 97.8 Pulse 95 76 69 Resp 20 20 18 B/P (MAP) 123/60 (81) 134/74 (94) 114/66 (82) Pulse Ox 97 96 97 98 O2 Delivery Nasal Cannula Nasal Cannula Nasal Cannula Nasal Cannula O2 Flow Rate 5.0 2.0 09/19/20 09/19/20 09/19/20 07:36 10:05 10:05 B/P (MAP) 114/66 114/66 Pulse Ox 97 O2 Delivery Nasal Cannula O2 Flow Rate 5.0 Intake and Output 09/18/20 09/18/20 09/19/20 15:00 23:00 07:00 Intake Total 400 ml 200 ml Output Total 200 ml Balance 400 ml 200 ml -200 ml Justicifation of Admission Dx: Justifications for Admission: Justification of Admission Dx: Yes Acute COPD Exacerbation: Acute COPD Exacerbation YOANDY GUTIERREZ MD September 19, 2020 10:42
[2020-09-19 11:00] VITALS: BP 121/71
--- NOTE | 2020-09-19 13:29 | PDOC3 ---
Discharge Summary Date of Admission: September 16, 2020 Date of Discharge: September 19, 2020 Follow-Up: 1-2 days Admitting Diagnosis comment: Chief Complaint Chief Complaint VTE Prophylaxis Ordered VTE Prophylaxis Devices: No VTE Pharmacological Prophylaxi: Yes HPI History of Present Illness Seen in room 664 , confused 75 year old female with past medical history of COPD chronically on 4 L nasal cannula anxiety presents with a chief complaint of anxiety. states she told her neighbor to call 911 because she wanted to be evaluated for anxiety., cannot take care of herfsel at home states she has been anxious because she has not heard from her family particularly her son in the last day or so. EMS states they have BEEN called patient 3 times in the last 24 hours. patient called because she was having difficulty breathing. just discharged 09-14 Shortness of breath with probable acute on chronic heart failure. Grade I-abnormal relaxation pattern. echo history of COPD. HYPERCAPNIC/ HYPOXIC RESPIRATORY FAILURE on home oxygen at 2 liters. Chronic RBBB on09-14 was LESS SOA she REFUSED SNF on last discharge AMA labs are consistent with possible heart failure. complications none d/c condition good prognosis good with compliance consults pulmonary d/c meds see MAR F/U PCP AT SNF TODAY discharge dx Assessment/Plan ASSESSMENT Shortness of breath with acute on chronic heart failure. Transmitral Doppler flow pattern is Grade I-abnormal relaxation pattern. echo history of COPD. HYPERCAPNIC/ HYPOXIC RESPIRATORY FAILURE on home oxygen at 2 liters. right leg pain. improved Chronic RBBB Hypokalemia noncompliance re SNF ADMISSION THIS WEEK, HIGH RISK RE-ADMIT plan admitted. iv steroids consult pulmonary Cardiac monitoring. O2 per nasal cannula. DVT prophylaxis. Home medications, p.r.n. p.r.n. Zofran. Full code. Serial enzymes. Prognosis guarded. DuoNebs. qid PFTs as an outpatient. Echo 09-08 Resume home antiHTN therapy Lung optimization Supportive care outpatient ischemic evaluation PFTs as an outpatient. increase activity PT/OT NEEDS SNF 5-23 LESS SOA FEEL LESS weak today, she REFUSED SNF, refusing covid swab am[facility] walking in [facility] with pt seems confused at times labs are consistent with possible heart failure. d/w RN htn remains labile inc norvasc to 5 mg po bid iv steroids in the ER, Prognosis guarded. DuoNebs. qid Transmitral Doppler flow pattern is Grade I-abnormal relaxation pattern. echo history of COPD. on home oxygen at 2 liters. Acute on chronic hypoxic respiratory failure secondary to acute on chronic diastolic heart failure, triggered by hypertensive urgency. taper iv steroids to po D/C TO SNF TODAY D/C PLANNING 35 MIN 5-22 LESS SOA FEEL LESS weak today, she REFUSED SNF, refusing covid swab ama labs are consistent with possible heart failure. d/w RN htn remains labile inc norvasc to 5 mg po bid iv steroids in the ER, Prognosis guarded. DuoNebs. qid Transmitral Doppler flow pattern is Grade I-abnormal relaxation pattern. echo history of COPD. on home oxygen at 2 liters. Acute on chronic hypoxic respiratory failure secondary to acute on chronic diastolic heart failure, triggered by hypertensive urgency. taper iv steroids D/W RN Justifications for Admission Justifications for Admission Other Justification History of Present Illness History of Present Illness Identification/Chief Complaint Chief Complaint NEYDA, CONFUSED History of Present Illness History of Present Illness Seen in room 664 today, confused 75 year old female with past medical history of COPD chronically on 4 L nasal cannula anxiety presents with a chief complaint of anxiety. states she told her neighbor to call 911 because she wanted to be evaluated for anxiety., cannot take care of herfsel at home states she has been anxious because she has not heard from her family particularly her son in the last day or so. EMS states they have BEEN called patient 3 times in the last 24 hours. patient called because she was having difficulty breathing. just discharged 09-14 Shortness of breath with probable acute on chronic heart failure. Grade I-abnormal relaxation pattern. echo history of COPD. HYPERCAPNIC/ HYPOXIC RESPIRATORY FAILURE on home oxygen at 2 liters. Chronic RBBB on09-14 was LESS SOA she REFUSED SNF on last discharge AMA labs are consistent with possible heart failure. recent hospital days as follows;; 5-17 LESS SOA FEEL very weak today, thinks she may need SNF labs are consistent with possible heart failure. d/w RN mild hypernatremia inc norvasc to 5 mg po bid iv steroids in the ER, Prognosis guarded. [place] qid Transmitral Doppler flow pattern is Grade I-abnormal relaxation pattern. echo history of COPD. on home oxygen at 2 liters. Acute on chronic hypoxic respiratory failure secondary to acute on chronic diastolic heart failure, triggered by hypertensive urgency. PT/OT D/C SOON D/W PULM 5-18 LESS SOA FEEL LESS weak today, she REFUSED SNF labs are consistent with possible heart failure. d/w RN mild hypernatremia htn remains labile inc norvasc to 5 mg po bid iv steroids in the ER, Prognosis guarded. qid Transmitral Doppler flow pattern is Grade I-abnormal relaxation pattern. echo history of COPD. on home oxygen at 2 liters. Acute on chronic hypoxic respiratory failure secondary to acute on chronic diastolic heart failure, triggered by hypertensive urgency. D/C OK WITH PULM Past Medical History Past Medical History Past Medical History Past Medical History Past Medical History: Anxiety, Bipolar, COPD, Hypertension, Other Additional Past Medical Histor: shingles Past Surgical History: Appendectomy, Cholecystectomy, Hysterectomy Additional Past Surgical Histo: cyst from breast Smoking Status: Former Smoker Alcohol Use: None Drug Use: None PAST MEDICAL HISTORY: Anxiety, bipolar depression, hypertension, COPD, shingles, cholecystectomy, appendectomy, hysterectomy, cyst on her breast, previous tobacco abuse. ALLERGIES: PENICILLIN. FAMILY HISTORY: Hypertension. SOCIAL HISTORY: She used to smoke. No drinking or drugs. She is retired. MEDICATIONS: Reviewed, please refer to the [facility]AD. Cardiovascular: HTN Pulmonary: Bronchitis, COPD Psych: Anxiety Musculoskeletal: Osteoarthritis Infectious disease: Herpes zoster Renal/: Other Past Surgical History Past Surgical History: Appendectomy, Cholecystectomy, Hysterectomy Family History Family History: Heart Disease Vitals Vitals Vital Signs Date Time Temp Pulse Resp B/P (MAP) Pulse Ox O2 Delivery O2 Flow Rate FiO2 09/19/20 10:05 114/66 09/19/20 07:36 97 Nasal Cannula 5.0 09/19/20 07:00 97.8 69 18 97.8 Physical Exam Physical Exam confused to dates and last admission goals General: Alert, Oriented X3, Cooperative, No acute distress, mild distress, Other (confused often to details) Heart: Regular rate Lungs: Clear Abdomen: Normal bowel sounds, Soft, No tenderness, No hepatosplenomegaly Extremities: No cyanosis, No edema Skin: No rashes, No significant lesion FINAL DIAGNOSIS Problems Medical Problems: (1) Anxiety Status: Acute (2) COPD (chronic obstructive pulmonary disease) Status: Acute Brief Hospital Course Ms. Guzmán is a 75 old [sex] who presented with [ copd exac, weakness, hypercapnea, confusion] CONDITION AT DISCHARGE: Improved Discharge Medications Current Medications Lorazepam (Ativan Inj) 1 mg 1X ONCE IVP Last administered on 09/15/20at 19:02; Start 09/15/20 at 18:30; Stop 09/15/20 at 18:31; Status DC Methylprednisolone Sodium Succinate (SOLU-Medrol 125MG VIAL) 125 mg 1X ONCE IV Last administered on 09/15/20at 23:21; Start 09/15/20 at 23:30; Stop 09/15/20 at 23:31; Status DC Albuterol/ Ipratropium (Duoneb) 3 ml 1X ONCE NEB Last administered on 09/16/20at 00:04; Start 09/15/20 at 23:30; Stop 09/15/20 at 23:31; Status DC Ondansetron HCl (Zofran) 4 mg PRN Q8HRS PRN IV NAUSEA/VOMITING 1ST CHOICE; Start 09/15/20 at 23:30; Stop 09/16/20 at 23:30; Status DC Albuterol/ Ipratropium (Duoneb) 3 ml Q4HRS W/A NEB Last administered on 09/16/20at 11:26; Start 09/16/20 at 06:00; Stop 09/16/20 at 15:03; Status DC Albuterol Sulfate (Ventolin Neb Soln) 2.5 mg PRN Q2HRS PRN NEB SHORTNESS OF BREATH; Start 09/16/20 at 01:30; Stop 09/16/20 at 14:52; Status DC Acetaminophen (Tylenol) 650 mg PRN Q4HRS PRN PO TEMP OVER 100.4F OR MILD PAIN; Start 09/16/20 at 14:45 Albuterol Sulfate (Ventolin Neb Soln) 2.5 mg PRN Q2HRS PRN NEB SHORTNESS OF BREATH Last administered on 5/21/21at 10:28; Start 09/16/20 at 14:45 Alprazolam (Xanax) 0.5 mg DAILY PO Last administered on 09/19/20 10:06; Start 09/16/20 at 15:00 Amlodipine Besylate (Norvasc) 5 mg BID PO Last administered on 09/19/20 10:05; Start 09/16/20 at 21:00 Aspirin (Ecotrin) 81 mg DAILYWBKFT PO Last administered on 09/19/20 10:04; Start 09/16/20 at 15:00 Docusate Sodium (Colace) 100 mg PRN BID PRN PO CONSTIPATION; Start 09/16/20 at 14:45 Hydrochlorothiazide (Microzide) 12.5 mg DAILY PO Last administered on 09/19/20 10:04; Start 09/16/20 at 15:00 Albuterol/ Ipratropium (Duoneb) 3 ml Q4HRS NEB Last administered on 09/19/20 12:01; Start 09/16/20 at 16:00 Lidocaine (Lidoderm) 1 patch DAILY TD Last administered on 09/18/20at 09:48; Start 09/16/20 at 15:00 Lisinopril (Prinivil) 40 mg DAILY PO Last administered on 09/19/20 10:05; Start 09/16/20 at 15:00 Olanzapine (ZyPREXA ZYDIS) 5 mg PRN BID PRN PO ANXIETY / AGITATION Last administered on 09/18/20at 15:31; Start 09/16/20 at 14:45 Potassium Chloride (Klor-Con) 20 meq DAILYWBKFT PO Last administered on 09/19/20at 10:04; Start 09/16/20 at 15:00 Non-Formulary Medication (Albuterol Sulfate (Albuterol Sulfate Conc Neb Soln)) 1 vial Q2HR NEB ; Start 09/16/20 at 16:00; Status UNV Non-Formulary Medication ([Ipratropium/ Albuterol Sulfate] ) 3 ml RTQID NEB ; Start 09/16/20 at 16:00; Status UNV Miscellaneous (Lidoderm Patch Removal) 1 ea QHS ; Start 09/16/20 at 21:00 Methylprednisolone Sodium Succinate (SOLU-Medrol 125MG VIAL) 80 mg Q8HRS IV Last administered on 09/18/20at 06:36; Start 09/16/20 at 15:00; Stop 09/18/20 at 12:25; Status DC Furosemide (Lasix) 20 mg DAILY IVP Last administered on 09/19/20at 10:06; Start 09/16/20 at 15:00 Methylprednisolone Sodium Succinate (SOLU-Medrol 40MG VIAL) 40 mg BID IV Last administered on 09/19/20at 10:06; Start 09/18/20 at 21:00 Active Scripts Active Xanax (Alprazolam) 0.5 Mg Tablet 1 Tab PO DAILY Lidocaine PATCH (Lidocaine) 1 Each Adh..patch 1 Patch TD DAILY 30 Days Hydrochlorothiazide Capsule (Hydrochlorothiazide) 12.5 Mg Capsule 12.5 Mg PO DAILY 30 Days Klor-Con M20 (Potassium Chloride) 20 Meq Tab.er.prt 20 Meq PO DAILYWBKFT 30 Days Olanzapine Odt (Olanzapine) 5 Mg Tab.rapdis 5 Mg PO PRN BID PRN 30 Days Aspirin Ec (Aspirin) 81 Mg Tablet.dr 81 Mg PO DAILYWBKFT 30 Days Amlodipine Besylate 5 Mg Tablet 5 Mg PO BID 30 Days Proair Hfa (Albuterol Sulfate) 8.5 Gm Hfa.aer.ad 2.5 Mg NEB PRN Q2HRS PRN 30 Days Dok (Docusate Sodium) 100 Mg Capsule 100 Mg PO PRN BID PRN 14 Days Tylenol (Acetaminophen) 325 Mg Tablet 650 Mg PO PRN Q4HRS PRN 14 Days Duoneb 0.5-3(2.5) Mg/3 Ml (Albuterol/Ipratropium) 3 Ml Ampul.neb 3 Ml NEB Q4HRS 30 Days Lisinopril 40 Mg Tablet 40 Mg PO DAILY 30 Days [Ipratropium/Albuterol Sulfate] 3 ML Nebu 3 Ml NEB RTQID Reported Albuterol Sulfate Conc Neb Soln (Albuterol Sulfate) 2.5 Mg/0.5 Ml Vial.neb 1 Vial NEB Q2HR Vital Signs Vital Signs Date Time Temp Pulse Resp B/P (MAP) Pulse Ox O2 Delivery O2 Flow Rate FiO2 09/19/20 12:02 Nasal Cannula 5.0 09/19/20 11:00 97.6 94 18 121/71 (88) 97 97.6 Labs Laboratory Tests Test 09/17/20 15:45 White Blood Count 10.7 x10^3/uL (4.0-11.0) Red Blood Count 4.18 x10^6/uL (3.50-5.40) Hemoglobin 12.0 g/dL (12.0-15.5) Hematocrit 36.5 % (36.0-47.0) Mean Corpuscular Volume 87 fL (79-100) Mean Corpuscular Hemoglobin 29 pg (25-35) Mean Corpuscular Hemoglobin Concent 33 g/dL (31-37) Red Cell Distribution Width 14.8 % (11.5-14.5) Platelet Count 222 x10^3/uL (140-400) Neutrophils (%) (Auto) 94 % (31-73) Lymphocytes (%) (Auto) 3 % (24-48) Monocytes (%) (Auto) 3 % (0-9) Eosinophils (%) (Auto) 0 % (0-3) Basophils (%) (Auto) 0 % (0-3) Neutrophils # (Auto) 10.1 x10^3/uL (1.8-7.7) Lymphocytes # (Auto) 0.3 x10^3/uL (1.0-4.8) Monocytes # (Auto) 0.3 x10^3/uL (0.0-1.1) Eosinophils # (Auto) 0.0 x10^3/uL (0.0-0.7) Basophils # (Auto) 0.0 x10^3/uL (0.0-0.2) Segmented Neutrophils % 97 % (35-66) Lymphocytes % 2 % (24-48) Monocytes % 1 % (0-10) Toxic Granulation Slight Platelet Estimate Adequate (ADEQUATE) Sodium Level 145 mmol/L (136-145) Potassium Level 3.8 mmol/L (3.5-5.1) Chloride Level 105 mmol/L (98-107) Carbon Dioxide Level 38 mmol/L (21-32) Anion Gap 2 (6-14) Blood Urea Nitrogen 29 mg/dL (7-20) Creatinine 1.3 mg/dL (0.6-1.0) Estimated GFR (Cockcroft-Gault) 39.9 BUN/Creatinine Ratio 22 (6-20) Glucose Level 196 mg/dL (70-99) Calcium Level 8.5 mg/dL (8.5-10.1) Total Bilirubin 0.2 mg/dL (0.2-1.0) Aspartate Amino Transf (AST/SGOT) 9 U/L (15-37) Alanine Aminotransferase (ALT/SGPT) 19 U/L (14-59) Alkaline Phosphatase 60 U/L (46-116) Total Protein 6.0 g/dL (6.4-8.2) Albumin 3.2 g/dL (3.4-5.0) Albumin/Globulin Ratio 1.1 (1.0-1.7) Allergies Allergies Coded Allergies Type Severity Reaction Last Updated Verified Penicillins Allergy Intermediate rash as a child 09/07/20 Yes Disposition/Orders: Other (D/C TO SNF) Justicifation of Admission Dx: Justifications for Admission: Justification of Admission Dx: Yes Acute COPD Exacerbation: Acute COPD Exacerbation YOANDY GUTIERREZ MD September 19, 2020 13:29
[2020-09-19] MEDS ORDERED: PRED50TA PO (13:32)
[2020-09-19] MEDS ORDERED: FURO-69 PO (13:32)
--- NOTE | 2020-09-19 13:33 | SNU/HH DC ---
DISCHARGE ORDERS DISCHARGE INFORMATION: DISCHARGE DATE: September 19, 2020 FINAL DIAGNOSIS Problems Medical Problems: (1) Anxiety Status: Acute (2) COPD (chronic obstructive pulmonary disease) Status: Acute CONDITION ON DISCHARGE: Stable CODE STATUS: Code Status: Full LONGTERM: SNF STAY <30 DAYS: Yes HOSPICE: HOSPICE: No HOSPICE EVAL & TREAT: No LTAC: ADMIT TO LTAC: No POST DISCHARGE ORDERS: ACTIVITY ORDERS: Activity as tolerated WEIGHT BEARING STATUS: As tolerated DIET AFTER DISCHARGE: Cardiac CHECKS AFTER DISCHARGE: CHECKS AFTER DISCHARGE: Check blood press - daily FOLLOW-UP: PHYSICIAN FOLLOW-UP: PCP AT [facility] TODAY ADDITIONAL FOLLOW-UP: PULMONARY IN 2 WEEKS TREATMENT/EQUIPMENT ORDERS: ADAPTIVE EQUIPMENT NEEDED: None, Front wheeled walker RESPIRATORY EQUIPMENT NEEDED: Oxygen, Nebulizer Physical Therapy For: Evalulation/Treatment Occupational Therapy For: Evaluation/Treatment Speech Language Pathology For: Evaluation/Treatment DISCHARGE MEDICATIONS: Home Meds Active Scripts Furosemide (LASIX) 20 Mg Tablet, 1 TAB PO DAILY for CHF for 14 Days, #14 TAB 0 Refills Prov:YOANDY GUTIERREZ MD 09/19/20 Prednisone (PREDNISONE) 50 Mg Tablet, 1 TAB PO DAILY for COPD for 7 Days, #7 TAB Prov:YOANDY GUTIERREZ MD 09/19/20 Lidocaine (Lidocaine PATCH ) 1 Each Adh..patch, 1 PATCH TD DAILY for PAIN for 30 Days, #30 PATCH Prov:YOANDY GUTIERREZ MD 09/14/20 Hydrochlorothiazide (HYDROCHLOROTHIAZIDE CAPSULE ) 12.5 Mg Capsule, 12.5 MG PO DAILY for BLOOD PRESSURE for 30 Days, #30 CAP Prov:YOANDY GUTIERREZ MD 09/14/20 Potassium Chloride (KLOR-CON M20) 20 Meq Tab.er.prt, 20 MEQ PO DAILYWBKFT for SUPPLEMENT for 30 Days, #30 TAB.SR Prov:YOANDY GUTIERREZ MD 09/14/20 Olanzapine (OLANZAPINE ODT) 5 Mg Tab.rapdis, 5 MG PO PRN BID PRN for ANXIETY / AGITATION for 30 Days, #60 TAB Prov:YOANDY GUTIERREZ MD 09/14/20 Aspirin (ASPIRIN EC) 81 Mg Tablet.dr, 81 MG PO DAILYWBKFT for HEART HEALTH for 30 Days, #30 TAB.SR Prov:YOANDY GUTIERREZ MD 09/14/20 Amlodipine Besylate (AMLODIPINE BESYLATE) 5 Mg Tablet, 5 MG PO BID for BLOOD PRESSURE for 30 Days, #60 TAB Prov:YOANDY GUTIERREZ MD 09/14/20 Albuterol Sulfate (Proair Hfa) 8.5 Gm Hfa.aer.ad, 2.5 MG NEB PRN Q2HRS PRN for SHORTNESS OF BREATH for 30 Days, #2 INHALER Prov:YOANDY GUTIERREZ MD 09/14/20 Docusate Sodium (DOK) 100 Mg Capsule, 100 MG PO PRN BID PRN for CONSTIPATION for 14 Days, #30 CAP Prov:YOANDY GUTIERREZ MD 03/12/19 Acetaminophen (TYLENOL) 325 Mg Tablet, 650 MG PO PRN Q4HRS PRN for TEMP OVER 100.4F OR MILD PAIN for 14 Days, #60 TAB Prov:YOANDY GUTIERREZ MD 03/12/19 Ipratropium/Albuterol Sulfate (DUONEB 0.5-3(2.5) MG/3 ML) 3 Ml Ampul.neb, 3 ML NEB Q4HRS for COPD for 30 Days, #180 EACH Prov:YOANDY GUTIERREZ MD 03/12/19 Lisinopril (LISINOPRIL) 40 Mg Tablet, 40 MG PO DAILY for blood pressure for 30 Days, #30 TAB Prov:YOANDY GUTIERREZ MD 03/15/18 [Ipratropium/Albuterol Sulfate] 3 ML NEBU No Conflict Check, 3 ML NEB RTQID, #120 Prov:DEONTE MUÑOZ MD 10/02/14 Reported Medications Albuterol Sulfate (ALBUTEROL SULFATE CONC NEB SOLN) 2.5 Mg/0.5 Ml Vial.neb, 1 VIAL NEB Q2HR for soa, #120 VIAL 5 Refills 03/27/19 Discontinued Scripts Alprazolam (XANAX) 0.5 Mg Tablet, 1 TAB PO DAILY, #10 TAB Prov:ANIBAL HWANG DO 09/15/20 Amlodipine Besylate (AMLODIPINE BESYLATE) 5 Mg Tablet, 5 MG PO DAILY for BLOOD PRESSURE for 30 Days, #30 TAB Prov:YOANDY GUTIERREZ MD 03/12/19 YOANDY GUTIERREZ MD September 19, 2020 13:33
[2020-09-19 15:00] VITALS: BP 132/57
[2020-09-19 19:00] VITALS: BP 98/62
[2020-09-19] MEDS: PATCH REMOVAL. MC SCH (21:00)
[2020-09-19 22:39] VITALS: BP 125/75
[2020-09-20] MEDS: IPRATRPIUM/ALBUTEROL 0.5/2.5MG 3 ML NEBU. NEB SCH ×4 (00:11→11:08)
[2020-09-20 03:07] VITALS: BP 128/70
[2020-09-20] MEDS: POTASSIUM CHLORIDE 20 MEQ TABLET.ER. PO SCH (07:58)
[2020-09-20] MEDS: hydroCHLOROthiazide 12.5 MG CAPSULE PO SCH (07:58)
[2020-09-20] MEDS: amLODIPine BESYLATE 5 MG TABLET PO SCH (07:58)
[2020-09-20] MEDS: ASPIRIN ENTERIC COATED 81 MG TABLET.DR. PO SCH (07:58)
[2020-09-20] MEDS: ALPRAZolam 0.5 MG TABLET PO SCH (07:58)
[2020-09-20] MEDS: methylPREDNISolone SOD SUCC PF 40 MG/ML VIAL. IV SCH (07:59)
[2020-09-20] MEDS: LISINOPRIL 20 MG TABLET PO SCH (07:59)
[2020-09-20] MEDS: LIDOCAINE (700MG/PATCH) PATCH. TD SCH (07:59)
[2020-09-20] MEDS: FUROSEMIDE 20 MG/2 ML VIAL. IVP SCH (08:03)
--- NOTE | 2020-09-20 09:48 | PDOC ---
PROGRESS NOTES Date of Service: DATE: 09/20/20 TIME: 09:48 Chief Complaint Chief Complaint VTE Prophylaxis Ordered VTE Prophylaxis Devices: No VTE Pharmacological Prophylaxi: Yes Assessment/Plan Assessment/Plan ASSESSMENT Shortness of breath with acute on chronic heart failure. Transmitral Doppler flow pattern is Grade I-abnormal relaxation pattern. echo history of COPD. HYPERCAPNIC/ HYPOXIC RESPIRATORY FAILURE on home oxygen at 2 liters. right leg pain. improved Chronic RBBB Hypokalemia noncompliance re SNF ADMISSION THIS WEEK, HIGH RISK RE-ADMIT plan admitted. iv steroids consult pulmonary Cardiac monitoring. O2 per nasal cannula. DVT prophylaxis. Home medications, p.r.n. p.r.n. Zofran. Full code. Serial enzymes. Prognosis guarded. DuoNebs. qid PFTs as an outpatient. Echo 09-08 Resume home antiHTN therapy Lung optimization Supportive care outpatient ischemic evaluation PFTs as an outpatient. increase activity PT/OT NEEDS SNF , REFUSED AMA WILL D/C WITH HOME HEALTH 5-24 LESS SOA FEEL LESS weak today, she REFUSED SNF, refusing covid swab ama walking in [facility] with pt seems confused at times labs are consistent with possible heart failure. d/w RN htn remains labile inc norvasc to 5 mg po bid iv steroids in the ER, Prognosis guarded. DuoNebs. qid Transmitral Doppler flow pattern is Grade I-abnormal relaxation pattern. echo history of COPD. on home oxygen at 2 liters. Acute on chronic hypoxic respiratory failure secondary to acute on chronic diastolic heart failure, triggered by hypertensive urgency. taper iv steroids to po D/C TO HH TODAY D/C PLANNING 35 MIN 5-22 LESS SOA FEEL LESS weak today, she REFUSED SNF, refusing covid swab ama labs are consistent with possible heart failure. d/w RN htn remains labile inc norvasc to 5 mg po bid iv steroids in the ER, Prognosis guarded. DuoNebs. qid Transmitral Doppler flow pattern is Grade I-abnormal relaxation pattern. echo history of COPD. on home oxygen at 2 liters. Acute on chronic hypoxic respiratory failure secondary to acute on chronic diastolic heart failure, triggered by hypertensive urgency. taper iv steroids D/W RN Justifications for Admission Justifications for Admission Other Justification History of Present Illness History of Present Illness Identification/Chief Complaint Chief Complaint SOA, CONFUSED History of Present Illness History of Present Illness Seen in room 664 today, confused 75 year old female with past medical history of COPD chronically on 4 L nasal cannula anxiety presents with a chief complaint of anxiety. states she told her neighbor to call 911 because she wanted to be evaluated for anxiety., cannot take care of herfsel at home states she has been anxious because she has not heard from her family particularly her son in the last day or so. EMS states they have BEEN called patient 3 times in the last 24 hours. patient called because she was having difficulty breathing. just discharged 09-14 Shortness of breath with probable acute on chronic heart failure. Grade I-abnormal relaxation pattern. echo history of COPD. HYPERCAPNIC/ HYPOXIC RESPIRATORY FAILURE on home oxygen at 2 liters. Chronic RBBB on09-14 was LESS SOA she REFUSED SNF on last discharge AMA labs are consistent with possible heart failure. recent hospital days as follows;; 09-13 LESS SOA FEEL very weak today, thinks she may need SNF labs are consistent with possible heart failure. d/w RN mild hypernatremia inc norvasc to 5 mg po bid iv steroids in the ER, Prognosis guarded. DuoNebs. qid Transmitral Doppler flow pattern is Grade I-abnormal relaxation pattern. echo history of COPD. on home oxygen at 2 liters. Acute on chronic hypoxic respiratory failure secondary to acute on chronic diastolic heart failure, triggered by hypertensive urgency. PT/OT D/C SOON D/W PULM 09-14 LESS SOA FEEL LESS weak today, she REFUSED SNF labs are consistent with possible heart failure. d/w RN mild hypernatremia htn remains labile inc norvasc to 5 mg po bid iv steroids in the ER, Prognosis guarded. DuoNebs. qid Transmitral Doppler flow pattern is Grade I-abnormal relaxation pattern. echo history of COPD. on home oxygen at 2 liters. Acute on chronic hypoxic respiratory failure secondary to acute on chronic diastolic heart failure, triggered by hypertensive urgency. D/C OK WITH PULM Past Medical History Past Medical History Past Medical History Past Medical History Past Medical History: Anxiety, Bipolar, COPD, Hypertension, Other Additional Past Medical Histor: shingles Past Surgical History: Appendectomy, Cholecystectomy, Hysterectomy Additional Past Surgical Histo: cyst from breast Smoking Status: Former Smoker Alcohol Use: None Drug Use: None PAST MEDICAL HISTORY: Anxiety, bipolar depression, hypertension, COPD, shingles, cholecystectomy, appendectomy, hysterectomy, cyst on her breast, previous tobacco abuse. ALLERGIES: PENICILLIN. FAMILY HISTORY: Hypertension. SOCIAL HISTORY: She used to smoke. No drinking or drugs. She is retired. MEDICATIONS: Reviewed, please refer to the MRAD. Cardiovascular: HTN Pulmonary: Bronchitis, COPD Psych: Anxiety Musculoskeletal: Osteoarthritis Infectious disease: Herpes zoster Renal/: Other Past Surgical History Past Surgical History: Appendectomy, Cholecystectomy, Hysterectomy Family History Family History: Heart Disease Vitals Vitals Vital Signs Date Time Temp Pulse Resp B/P (MAP) Pulse Ox O2 Delivery O2 Flow Rate FiO2 09/20/20 08:08 Nasal Cannula 5.0 09/20/20 07:59 84 128/70 09/20/20 07:06 98 09/20/20 03:07 97.7 18 97.7 Physical Exam Physical Exam confused to dates and last admission goals General: Alert, Oriented X3, Cooperative, No acute distress, mild distress, Other (confused often to details) Heart: Regular rate Lungs: Clear Abdomen: Normal bowel sounds, Soft, No tenderness, No hepatosplenomegaly Extremities: No cyanosis, No edema Skin: No rashes, No significant lesion Assessment and Plan Assessmemt and Plan Problems Medical Problems: (1) Anxiety Status: Acute (2) COPD (chronic obstructive pulmonary disease) Status: Acute Comment Review of Relevant I have reviewed the following items xin (where applicable) has been applied. Medications Current Medications Lorazepam (Ativan Inj) 1 mg 1X ONCE IVP Last administered on 09/15/20at 19:02; Start 09/15/20 at 18:30; Stop 09/15/20 at 18:31; Status DC Methylprednisolone Sodium Succinate (SOLU-Medrol 125MG VIAL) 125 mg 1X ONCE IV Last administered on 09/15/20at 23:21; Start 09/15/20 at 23:30; Stop 09/15/20 at 23:31; Status DC Albuterol/ Ipratropium (Duoneb) 3 ml 1X ONCE NEB Last administered on 09/16/20at 00:04; Start 09/15/20 at 23:30; Stop 09/15/20 at 23:31; Status DC Ondansetron HCl (Zofran) 4 mg PRN Q8HRS PRN IV NAUSEA/VOMITING 1ST CHOICE; Start 09/15/20 at 23:30; Stop 09/16/20 at 23:30; Status DC Albuterol/ Ipratropium (Duoneb) 3 ml Q4HRS W/A NEB Last administered on 08/29 11:26; Start 09/16/20 at 06:00; Stop 09/16/20 at 15:03; Status DC Albuterol Sulfate (Ventolin Neb Soln) 2.5 mg PRN Q2HRS PRN NEB SHORTNESS OF BREATH; Start 09/16/20 at 01:30; Stop 09/16/20 at 14:52; Status DC Acetaminophen (Tylenol) 650 mg PRN Q4HRS PRN PO TEMP OVER 100.4F OR MILD PAIN; Start 09/16/20 at 14:45 Albuterol Sulfate (Ventolin Neb Soln) 2.5 mg PRN Q2HRS PRN NEB SHORTNESS OF BREATH Last administered on 09/17/20at 10:28; Start 09/16/20 at 14:45 Alprazolam (Xanax) 0.5 mg DAILY PO Last administered on 09/20/20 07:58; Start 09/16/20 at 15:00 Amlodipine Besylate (Norvasc) 5 mg BID PO Last administered on 09/20/20 07:58; Start 09/16/20 at 21:00 Aspirin (Ecotrin) 81 mg DAILYWBKFT PO Last administered on 09/20/20at 07:58; Start 09/16/20 at 15:00 Docusate Sodium (Colace) 100 mg PRN BID PRN PO CONSTIPATION; Start 09/16/20 at 14:45 Hydrochlorothiazide (Microzide) 12.5 mg DAILY PO Last administered on 09/20/20 07:58; Start 09/16/20 at 15:00 Albuterol/ Ipratropium (Duoneb) 3 ml Q4HRS NEB Last administered on 09/20/20 07:05; Start 09/16/20 at 16:00 Lidocaine (Lidoderm) 1 patch DAILY TD Last administered on 09/20/20at 07:59; Start 09/16/20 at 15:00 Lisinopril (Prinivil) 40 mg DAILY PO Last administered on 09/20/20at 07:59; Start 09/16/20 at 15:00 Olanzapine (ZyPREXA ZYDIS) 5 mg PRN BID PRN PO ANXIETY / AGITATION Last administered on 09/19/20at 21:14; Start 09/16/20 at 14:45 Potassium Chloride (Klor-Con) 20 meq DAILYWBKFT PO Last administered on 09/20/20at 07:58; Start 09/16/20 at 15:00 Non-Formulary Medication (Albuterol Sulfate (Albuterol Sulfate Conc Neb Soln)) 1 vial Q2HR NEB ; Start 09/16/20 at 16:00; Status UNV Non-Formulary Medication ([Ipratropium/ Albuterol Sulfate] ) 3 ml RTQID NEB ; Start 09/16/20 at 16:00; Status UNV Miscellaneous (Lidoderm Patch Removal) 1 ea QHS ; Start 09/16/20 at 21:00 Methylprednisolone Sodium Succinate (SOLU-Medrol 125MG VIAL) 80 mg Q8HRS IV Last administered on 09/18/20at 06:36; Start 09/16/20 at 15:00; Stop 09/18/20 at 12:25; Status DC Furosemide (Lasix) 20 mg DAILY IVP Last administered on 09/20/20at 08:03; Start 09/16/20 at 15:00 Methylprednisolone Sodium Succinate (SOLU-Medrol 40MG VIAL) 40 mg BID IV Last administered on 09/20/20at 07:59; Start 09/18/20 at 21:00 Active Scripts Active Lasix (Furosemide) 20 Mg Tablet 1 Tab PO DAILY 14 Days Prednisone 50 Mg Tablet 1 Tab PO DAILY 7 Days Lidocaine PATCH (Lidocaine) 1 Each Adh..patch 1 Patch TD DAILY 30 Days Hydrochlorothiazide Capsule (Hydrochlorothiazide) 12.5 Mg Capsule 12.5 Mg PO DAILY 30 Days Klor-Con M20 (Potassium Chloride) 20 Meq Tab.er.prt 20 Meq PO DAILYWBKFT 30 Days Olanzapine Odt (Olanzapine) 5 Mg Tab.rapdis 5 Mg PO PRN BID PRN 30 Days Aspirin Ec (Aspirin) 81 Mg Tablet.dr 81 Mg PO DAILYWBKFT 30 Days Amlodipine Besylate 5 Mg Tablet 5 Mg PO BID 30 Days Proair Hfa (Albuterol Sulfate) 8.5 Gm Hfa.aer.ad 2.5 Mg NEB PRN Q2HRS PRN 30 Days Dok (Docusate Sodium) 100 Mg Capsule 100 Mg PO PRN BID PRN 14 Days Tylenol (Acetaminophen) 325 Mg Tablet 650 Mg PO PRN Q4HRS PRN 14 Days Duoneb 0.5-3(2.5) Mg/3 Ml (Albuterol/Ipratropium) 3 Ml Ampul.neb 3 Ml NEB Q4HRS 30 Days Lisinopril 40 Mg Tablet 40 Mg PO DAILY 30 Days [Ipratropium/Albuterol Sulfate] 3 ML Nebu 3 Ml NEB RTQID Reported Albuterol Sulfate Conc Neb Soln (Albuterol Sulfate) 2.5 Mg/0.5 Ml Vial.neb 1 Vial NEB Q2HR Vitals/I & O Vital Sign - Last 24 Hours 09/19/20 09/19/20 09/19/20 09/19/20 10:05 10:05 11:00 12:02 Temp 97.6 97.6 Pulse 94 Resp 18 B/P (MAP) 114/66 114/66 121/71 (88) Pulse Ox 97 O2 Delivery Nasal Cannula Nasal Cannula O2 Flow Rate 2.0 5.0 09/19/20 09/19/20 09/19/20 09/19/20 15:00 15:05 18:24 19:00 Temp 98.0 97.8 98.0 97.8 Pulse 78 93 Resp 18 18 B/P (MAP) 132/57 (82) 98/62 (74) Pulse Ox 99 95 O2 Delivery Nasal Cannula Nasal Cannula Nasal Cannula Nasal Cannula O2 Flow Rate 2.0 5.0 5.0 5.0 09/19/20 09/19/20 09/19/20 09/20/20 20:00 21:14 22:39 00:12 Temp 97.8 97.8 Pulse 75 90 Resp 18 B/P (MAP) 130/54 125/75 (92) Pulse Ox 98 99 O2 Delivery Nasal Cannula Nasal Cannula Nasal Cannula O2 Flow Rate 5.0 5.0 5.0 09/20/20 09/20/20 09/20/20 09/20/20 03:07 04:18 07:06 07:58 Temp 97.7 97.7 Pulse 84 84 Resp 18 B/P (MAP) 128/70 (89) 128/70 Pulse Ox 98 98 98 O2 Delivery Nasal Cannula Nasal Cannula Nasal Cannula O2 Flow Rate 5.0 5.0 5.0 09/20/20 09/20/20 07:59 08:08 Pulse 84 B/P (MAP) 128/70 O2 Delivery Nasal Cannula O2 Flow Rate 5.0 Intake and Output 09/19/20 09/19/20 09/20/20 14:59 22:59 06:59 Intake Total 480 ml Output Total 300 ml Balance 180 ml Justicifation of Admission Dx: Justifications for Admission: Justification of Admission Dx: Yes Acute COPD Exacerbation: Acute COPD Exacerbation YOANDY GUTIERREZ MD September 20, 2020 09:48
[2020-09-20 11:00] VITALS: BP 118/53
--- NOTE | 2020-09-20 11:32 | SNU/HH DC ---
DISCHARGE WITH HOME HEALTH DISCHARGE INFORMATION: Discharge Date: September 20, 2020 Final Diagnosis: Problems Medical Problems: (1) Anxiety Status: Acute (2) COPD (chronic obstructive pulmonary disease) Status: Acute Condition on Discharge: Stable CODE STATUS: Code Status: Full HOME HEALTH: Face to Face: I certify this patient is under my care and that I, or a nurse practitioner or physician's assistant counsel working with me, had a face to face encounter that meets the physician face to face encounter requirements with this patient on []. Medical Complications: COPD Shelter For: Assess Cardiopulm Status, Assess & Educate Safety, Medication Management RN For Eval/Treatment: Yes Physical Therapy For: Evalulation/Treatment Occupational Therapy For: Evaluation/Treatment Speech Language Pathology For: Evaluation/Treatment Home Health Aide For: Self-care COMMERCIAL FINANCE ANALYST For: Community Resources Pt Meets Homebound Status: Extreme weakness w/ amb., Limited distance walking, Poor cognition, Psychological condition POST DISCHARGE ORDERS: Activity Instructions for Disc: Activity as tolerated Weight Bearing Status after Di: As tolerated DIET AFTER DISCHARGE: Cardiac CHECKS AFTER DISCHARGE: Checks after discharge: Check blood press - daily FOLLOW-UP: Follow up with: PCP AT [facility] TODAY Follow Up With: PULMONARY IN 2 WEEKS TREATMENT/EQUIPMENT ORDERS: Adaptive Equipment Issued: None, Front wheeled walker Discharge Respiratory Equipmen: Oxygen, Nebulizer CERTIFICATION STATEMENT: Certification Statement: Certification Statement: Based on the above finding, I certify that this patient is confined to the home and needs intermittent usp care, physical therapy and/or speech therapy, or continues to need occupational therapy.~ This patient is under my care, and I have initiated the establishment of the plan of care.~ This patient will be followed by myself or a community physician who will periodically review the plan of care. Home Meds Active Scripts Furosemide (LASIX) 20 Mg Tablet, 1 TAB PO DAILY for CHF for 14 Days, #14 TAB 0 Refills Prov:YOANDY GUTIERREZ MD 09/19/20 Prednisone (PREDNISONE) 50 Mg Tablet, 1 TAB PO DAILY for COPD for 7 Days, #7 TAB Prov:YOANDY GUTIERREZ MD 09/19/20 Lidocaine (Lidocaine PATCH ) 1 Each Adh..patch, 1 PATCH TD DAILY for PAIN for 30 Days, #30 PATCH Prov:YOANDY GUTIERREZ MD 09/14/20 Hydrochlorothiazide (HYDROCHLOROTHIAZIDE CAPSULE ) 12.5 Mg Capsule, 12.5 MG PO DAILY for BLOOD PRESSURE for 30 Days, #30 CAP Prov:YOANDY GUTIERREZ MD 09/14/20 Potassium Chloride (KLOR-CON M20) 20 Meq Tab.er.prt, 20 MEQ PO DAILYWBKFT for SUPPLEMENT for 30 Days, #30 TAB.SR Prov:YOANDY GUTIERREZ MD 09/14/20 Olanzapine (OLANZAPINE ODT) 5 Mg Tab.rapdis, 5 MG PO PRN BID PRN for ANXIETY / AGITATION for 30 Days, #60 TAB Prov:YOANDY GUTIERREZ MD 09/14/20 Aspirin (ASPIRIN EC) 81 Mg Tablet.dr, 81 MG PO DAILYWBKFT for HEART HEALTH for 30 Days, #30 TAB.SR Prov:YOANDY GUTIERREZ MD 09/14/20 Amlodipine Besylate (AMLODIPINE BESYLATE) 5 Mg Tablet, 5 MG PO BID for BLOOD PRESSURE for 30 Days, #60 TAB Prov:YOANDY GUTIERREZ MD 09/14/20 Albuterol Sulfate (Proair Hfa) 8.5 Gm Hfa.aer.ad, 2.5 MG NEB PRN Q2HRS PRN for SHORTNESS OF BREATH for 30 Days, #2 INHALER Prov:YOANDY GUTIERREZ MD 09/14/20 Docusate Sodium (DOK) 100 Mg Capsule, 100 MG PO PRN BID PRN for CONSTIPATION for 14 Days, #30 CAP Prov:YOANDY GUTIERREZ MD 03/12/19 Acetaminophen (TYLENOL) 325 Mg Tablet, 650 MG PO PRN Q4HRS PRN for TEMP OVER 100.4F OR MILD PAIN for 14 Days, #60 TAB Prov:YOANDY GUTIERREZ MD 03/12/19 Ipratropium/Albuterol Sulfate (DUONEB 0.5-3(2.5) MG/3 ML) 3 Ml Ampul.neb, 3 ML NEB Q4HRS for COPD for 30 Days, #180 EACH Prov:YOANDY GUTIERREZ MD 03/12/19 Lisinopril (LISINOPRIL) 40 Mg Tablet, 40 MG PO DAILY for blood pressure for 30 Days, #30 TAB Prov:YOANDY GUTIERREZ MD 03/15/18 [Ipratropium/Albuterol Sulfate] 3 ML NEBU No Conflict Check, 3 ML NEB RTQID, #120 Prov:DEONTE MUÑOZ MD 10/02/14 Reported Medications Albuterol Sulfate (ALBUTEROL SULFATE CONC NEB SOLN) 2.5 Mg/0.5 Ml Vial.neb, 1 VIAL NEB Q2HR for soa, #120 VIAL 5 Refills 03/27/19 Discontinued Scripts Alprazolam (XANAX) 0.5 Mg Tablet, 1 TAB PO DAILY, #10 TAB Prov:ANIBAL HWANG DO 09/15/20 Amlodipine Besylate (AMLODIPINE BESYLATE) 5 Mg Tablet, 5 MG PO DAILY for BLOOD PRESSURE for 30 Days, #30 TAB Prov:YOANDY GUTIERREZ MD 03/12/19 YOANDY GUTIERREZ MD September 20, 2020 11:32
--- NOTE | 2020-09-20 12:35 | NUR ---
SW following. Discussed with RN, pt had COVID swab last night. SONIYA met with pt, pt would like to go to [facility]. SONIYA phoned and faxed referral, awaiting acceptance decision and COVID result. Choice of vendor form completed. SONIYA will continue to follow. Addendum: 09/20/20 at 1411 by HAYDEN BYRNES Pt accepted at [facility], COVID-19 negative. Discharge orders faxed. Transportation arranged with [employer] for between [phone]. RN notified.
--- NOTE | 2020-09-20 15:09 | NUR ---
Discharge Note: TONI LEWIS [facility] Discharge instructions and discharge home medications reviewed with Other facility and a copy given. All questions have been answered and understanding verbalized. The following instructions and handouts were given: d/c instructions in packet to send with pt to [facility]. Discontinued lines and drains: Peripheral IV intact. [facility] Personnel via Wheelchair
--- NOTE | 2020-09-20 15:10 | NUR ---
Attempted to call Huy Guzmán (pt son) but no answer and voice mailbox full. Pt's son information given to Michelle Akbar RN during report.
== END 2020-09-20 15:37 | DRG 189 ==
LOC: ER 17:50 → 6 SOUTH 22:54 → OBSVTOIN 09-16 14:20
PROVIDERS: ADMIT Family Medicine; ATTEND Family Medicine
DX: J96.21 Acute and chronic respiratory failure with hypoxia (principal); N17.0 Acute kidney failure with tubular necrosis; I50.33 Acute on chronic diastolic (congestive) heart failure; E87.0 Hyperosmolality and hypernatremia; J44.1 Chronic obstructive pulmonary disease with (acute) exacerbation; I11.0 Hypertensive heart disease with heart failure; I16.0 Hypertensive urgency; B02.9 Zoster without complications; E87.6 Hypokalemia; I45.10 Unspecified right bundle-branch block; Z59.2 Discord with neighbors, lodgers and landlord; Z82.49 Family history of ischemic heart disease and other diseases of the circulatory system; Z87.891 Personal history of nicotine dependence; Z90.49 Acquired absence of other specified parts of digestive tract; Z90.710 Acquired absence of both cervix and uterus; Z99.81 Dependence on supplemental oxygen; F41.9 Anxiety disorder, unspecified; F31.9 Bipolar disorder, unspecified; M19.90 Unspecified osteoarthritis, unspecified site; Z88.0 Allergy status to penicillin; Z20.822 Contact with and (suspected) exposure to COVID-19; Z91.19 Patient's noncompliance with other medical treatment and regimen
CPT/HCPCS: 36415; 71045; 80053; 84484; 85007; 85025; 93005; 94640; 94760; 96374; 96375; G0378; G0379; J1940; J2060; J2920; J2930; U0003; U0005; 97116-GP; 97530-GP; 97535-GO; 99285-25; J7613

== ENCOUNTER 2020-09-26 01:50 | Emergency (ER) | payer MEDICARE ==
[~2020-09-26] VITALS: Ht 165.1 cm; Wt 75.0 kg
[~2020-09-26 01:50] MED LIST changes: +ALPR0.5T PO; +FURO-69 PO
[2020-09-26 02:17] LABS: BASO % 0 % (0-3); EOS # 0.2 x10^3/uL (0.0-0.7); EOS % 2 % (0-3); HEMATOCRIT 43.5 % (36.0-47.0); HEMOGLOBIN 14.1 g/dL (12.0-15.5); LYMPH # 1.8 x10^3/uL (1.0-4.8); LYMPH % 15 % (24-48); MEAN CORPUSCULAR HEMOGLOBIN 28 pg (25-35); MEAN CORPUSCULAR HGB CONC 32 g/dL (31-37); MEAN CORPUSCULAR VOLUME 87 fL (79-100); MONO % 8 % (0-9); NEUT # 9.1 x10^3/uL (1.8-7.7); NEUT % 75 % (31-73); PLATELET COUNT 245 x10^3/uL (140-400); RED BLOOD COUNT 4.99 x10^6/uL (3.50-5.40); WHITE BLOOD COUNT 12.2 x10^3/uL (4.0-11.0)
--- NOTE | 2020-09-26 02:25 | RAD ---
EXAM: AP View of the chest DATE: 09/26/2020 1:58 AM INDICATION: Reason: sob / Spl. Instructions: / History: COMPARISON: No Prior FINDINGS: The heart is not enlarged. Aortic calcifications are seen. No focal parenchymal airspace opacity. No pleural effusion or pneumothorax. IMPRESSION: 1. No radiographic evidence for acute cardiopulmonary process. Electronically signed by: Daniel Hung MD (09/26/2020 2:23 AM) MARV
[2020-09-26 02:40] LABS: CALCIUM 8.7 mg/dL (8.5-10.1); CREATININE 0.8 mg/dL (0.6-1.0); GFR 69.9; POTASSIUM 4.2 mmol/L (3.5-5.1)
[2020-09-26 02:46] LABS: ALBUMIN 3.2 g/dL (3.4-5.0); ALBUMIN/GLOBULIN RATIO 1.1 (1.0-1.7); TOTAL BILIRUBIN 0.4 mg/dL (0.2-1.0); TOTAL PROTEIN 6.1 g/dL (6.4-8.2)
--- NOTE | 2020-09-26 03:00 | EKG ---
[facility] [address] [place] [address] Test Date: 2020-09-26 Test Time: 01:54:40 Pat Name: TONI LEWIS Department: Room: Gender: F Nurse Midwife/Clinical Instructor: : 1945 Requested By: KAYLENE BOOTH Order Number: [id number] Reading MD: Ángel Gonzalez Measurements Intervals [place] Rate: 93 P: 90 VA: 140 QRS: 64 QRSD: 118 T: 37 QT: 364 QTc: 455 Interpretive Statements SINUS RHYTHM ATRIAL PREMATURE COMPLEX(ES) INCOMPLETE RIGHT BUNDLE BRANCH BLOCK NO SPECIFIC ECG ABNORMALITIES RI6.02 Compared to ECG 09/15/2020 18:02:27 No significant changes Electronically Signed On 09-28-2020 15:27:32 CDT by Ángel Gonzalez
[2020-09-26] MEDS: IV NORMAL SALINE 1000ML BAG 1,000 ML IV ONE (03:14)
--- NOTE | 2020-09-26 04:21 | ED.ADGEN ---
Past Medical History Past Medical History: Anxiety, Bipolar, COPD, Hypertension, Other Additional Past Medical Histor: shingles Past Surgical History: Appendectomy, Cholecystectomy, Hysterectomy Additional Past Surgical Histo: cyst from breast Smoking Status: Former Smoker Alcohol Use: None Drug Use: None General Adult EDM: Chief Complaint: SHORTNESS OF BREATH HPI: HPI: Patient is a 75 year old female with a history of COPD on chronic oxygen who presents to the Emergency Room after having an episode of shortness of breath. Patient believes that her home oxygen wasn't plugged in correctly and she went without oxygen for awhile. Paramedics had a difficult time getting an accurate pulse ox. They put her on a NRB and gave her a duoneb treatment. They also gave her steroids. Upon arrival patient is feeling back to her baseline. She has no complaints. Review of Systems: Review of Systems: Complete ROS is negative unless otherwise documented in HPI Current Medications: Current Medications Medications (Trade) Dose Ordered Sig/Low Start Time Stop Time Status Last Admin Dose Admin Sodium Chloride 1,000 ml @ 1,000 mls/hr 1X ONCE 09/26/20 03:15 09/26/20 04:14 DC 09/26/20 03:14 1,000 MLS/HR Allergies: Allergies: Allergies Coded Allergies Type Severity Reaction Last Updated Verified Penicillins Allergy Intermediate rash as a child 09/07/20 Yes Physical Exam: PE: General: Awake, alert, NAD. Well Nourished, well hydrated. Cooperative, on nasal cannula HEENT: Atraumatic, EOMI, PERRL, airway patent, moist oral mucosa Neck: Supple, trachea midline Respiratory: Decreased breath sounds, normal effort, no wheezing/crackles CV: RRR, no murmur, cap refill <2 GI: Soft, nondistended, nontender, no masses MSK: No obvious deformities Skin: Warm, dry, intact Neuro: A&O x3, speech NL, sensory and motor grossly intact, no focal deficits Psych: Normal affect, normal mood, not suicidal or homicidal Current Patient Data: Labs: Laboratory Tests Test 09/26/20 02:05 09/26/20 04:35 White Blood Count 12.2 x10^3/uL (4.0-11.0) H Red Blood Count 4.99 x10^6/uL (3.50-5.40) Hemoglobin 14.1 g/dL (12.0-15.5) Hematocrit 43.5 % (36.0-47.0) Mean Corpuscular Volume 87 fL (79-100) Mean Corpuscular Hemoglobin 28 pg (25-35) Mean Corpuscular Hemoglobin Concent 32 g/dL (31-37) Red Cell Distribution Width 15.0 % (11.5-14.5) H Platelet Count 245 x10^3/uL (140-400) Neutrophils (%) (Auto) 75 % (31-73) H Lymphocytes (%) (Auto) 15 % (24-48) L Monocytes (%) (Auto) 8 % (0-9) Eosinophils (%) (Auto) 2 % (0-3) Basophils (%) (Auto) 0 % (0-3) Neutrophils # (Auto) 9.1 x10^3/uL (1.8-7.7) H Lymphocytes # (Auto) 1.8 x10^3/uL (1.0-4.8) Monocytes # (Auto) 1.0 x10^3/uL (0.0-1.1) Eosinophils # (Auto) 0.2 x10^3/uL (0.0-0.7) Basophils # (Auto) 0.0 x10^3/uL (0.0-0.2) Sodium Level 149 mmol/L (136-145) H 147 mmol/L (136-145) H Potassium Level 4.2 mmol/L (3.5-5.1) 4.0 mmol/L (3.5-5.1) Chloride Level 107 mmol/L (98-107) 110 mmol/L (98-107) H Carbon Dioxide Level 38 mmol/L (21-32) H 34 mmol/L (21-32) H Anion Gap 4 (6-14) L 3 (6-14) L Blood Urea Nitrogen 24 mg/dL (7-20) H 21 mg/dL (7-20) H Creatinine 0.8 mg/dL (0.6-1.0) 0.7 mg/dL (0.6-1.0) Estimated GFR (Cockcroft-Gault) 69.9 81.6 BUN/Creatinine Ratio 30 (6-20) H Glucose Level 122 mg/dL (70-99) H 138 mg/dL (70-99) H Calcium Level 8.7 mg/dL (8.5-10.1) 7.9 mg/dL (8.5-10.1) L Total Bilirubin 0.4 mg/dL (0.2-1.0) Aspartate Amino Transferase (AST) 16 U/L (15-37) Alanine Aminotransferase (ALT) 22 U/L (14-59) Alkaline Phosphatase 76 U/L (46-116) Troponin I Quantitative < 0.017 ng/mL (0.000-0.055) TN-Zcx-O-Type Natriuretic Peptide 1067 pg/mL (0-449) H Total Protein 6.1 g/dL (6.4-8.2) L Albumin 3.2 g/dL (3.4-5.0) L Albumin/Globulin Ratio 1.1 (1.0-1.7) Laboratory Tests 09/26/20 02:05 Laboratory Tests 09/26/20 02:05 09/26/20 04:35 Vital Signs: Vital Signs Date Time Temp Pulse Resp B/P (MAP) Pulse Ox O2 Delivery O2 Flow Rate FiO2 09/26/20 04:59 75 144/67 (92) 96 Nasal Cannula 3.5 09/26/20 01:50 97.6 24 97.6 EKG: EKG: [] Heart Score: C/O Chest Pain: N/A Risk Factors: Risk Factors: DM, Current or recent (<one month) smoker, HTN, HLP, family history of CAD, obesity. Risk Scores: Score 0 - 3: 2.5% MACE over next 6 weeks - Discharge Home Score 4 - 6: 20.3% MACE over next 6 weeks - Admit for Clinical Observation Score 7 - 10: 72.7% MACE over next 6 weeks - Early Invasive Strategies Radiology/Procedures: Radiology/Procedures: [] Course & Med Decision Making: Course & Med Decision Making Pertinent Labs and Imaging studies reviewed. (See chart for details) Patient is a 75-year-old female who presents to the emergency room after having episode of shortness of breath. This is likely because patient was not getting her home oxygen. Patient is back to her baseline and is on 3-1/2 L here in the emergency room with a pulse ox of 96%. She is not in any distress. She was observed here in the emergency room without any further issues. Lab work and chest x-ray were done and are unremarkable other than some mild dehydration and hypernatremia. She was given fluids and BMP was repeated. Patient's sodium is 147. Patient is stable at this time. We will discharge her home. Recommended to the patient that if she has any further shortness of breath, dizziness, chest pain, or any other concerns she should return to the emergency room for reevaluation. Patient's test results and vitals while in the ED were fully re viewed and discussed with the patient. Patient is stable and at this time does not need admission to the hospital. We have discussed strict return precautions and the importance of following up with their Primary Care Physician. Patient stated understanding and was given an opportunity to ask any questions. Patient is in agreement with plan. Geovanna Disclaimer: Geovanna Disclaimer: This electronic medical record was generated, in whole or in part, using a voice recognition dictation system. Departure Departure Impression: Primary Impression: Shortness of breath Additional Impressions: Hypernatremia Dehydration Disposition: 01 HOME / SELF CARE / HOMELESS Condition: STABLE Referrals: RADHA PARRISH MD (PCP) Patient Instructions: Hypernatremia, Shortness of Breath, [id number] Problem Qualifiers KAYLENE BOOTH MD September 26, 2020 04:21
[2020-09-26 05:13] LABS: CALCIUM 7.9 mg/dL (8.5-10.1); CREATININE 0.7 mg/dL (0.6-1.0); GFR 81.6
[2020-09-26 05:44] VITALS: BP 136/60
== END 2020-09-26 06:04 | disposition home or self-care (01) ==
LOC: ER 01:50
DX: R06.02 Shortness of breath (principal); E87.0 Hyperosmolality and hypernatremia; E86.0 Dehydration; J44.9 Chronic obstructive pulmonary disease, unspecified; F31.9 Bipolar disorder, unspecified; I10 Essential (primary) hypertension; Z87.891 Personal history of nicotine dependence; Z90.89 Acquired absence of other organs; Z90.49 Acquired absence of other specified parts of digestive tract; Z90.710 Acquired absence of both cervix and uterus; Z88.0 Allergy status to penicillin
CPT/HCPCS: 36415; 71045; 80048; 80053; 83880; 84484; 85025; 93005; 96360; 99285; J7030

== ENCOUNTER 2020-10-09 21:18 | Emergency (ER) | payer MEDICARE ==
[~2020-10-09] VITALS: Ht 165.1 cm; Wt 75.0 kg
[2020-10-09] MEDS ORDERED: IPRATRPIUM/ALBUTEROL 0.5/2.5MG 3 ML NEBU. NEB ONE (22:00)
[2020-10-09] MEDS ORDERED: DEXAMETHASONE SOD PHOS 20 MG/5 ML VIAL. IV ONE (22:00)
[2020-10-09] MEDS ORDERED: IV NORMAL SALINE 1000ML BAG 1,000 ML IV ONE (22:00)
--- NOTE | 2020-10-09 22:14 | RAD ---
Exam: Chest one view INDICATION: Short of air TECHNIQUE: Frontal view of the chest Comparisons: 09/26/2020 FINDINGS: The cardiomediastinal silhouette and pulmonary vessels are within normal limits. The lung and pleural spaces are clear. IMPRESSION: No acute cardiopulmonary process. Electronically signed by: Jelani Garcia MD (10/09/2020 10:12 PM) ADA
--- NOTE | 2020-10-09 22:56 | PHYS DOC ---
Past Medical History Past Medical History: Anxiety, Bipolar, COPD, Hypertension, Other Additional Past Medical Histor: SHINGLES Past Surgical History: Appendectomy, Cholecystectomy, Hysterectomy Additional Past Surgical Histo: CYSTS FROM BREASTS Smoking Status: Former Smoker Alcohol Use: None Drug Use: None General Adult EDM: Chief Complaint: DYSPNEA/RESPIRATORY DISTRESS HPI: HPI: 75-year-old female past medical history of COPD, hypertension bipolar disorder and anxiety presents the ED (well known/multiple ed visits) brought by EMS with complains of difficulties breathing after taking her oxygen off. Is on 3.5 to 4 L nasal cannula. She reported to EMS that her breathing improved upon putting nasal cannula. In ED patient with conflicting stories between EMS, RN and m yself-tells myself she is or short of breath and that her shortness of breath has not resolved, but then later tells me her shortness of breath dyspnea. Is requesting the ED room to be open and gives myself and rn different reasons. Refuses to put on her gown after multiple verbal re-directions. EMR was reviewed and patient was seen in the ED on September 26 with a very similar chief c omplaint. She was seen for shortness of breath, hyponatremia and dehydration. Review of Systems: Review of Systems: Constitutional: Denies fever or chills. [] Eyes: Denies change in visual acuity or eye discharge HENT: Denies nasal congestion or sore throat. [] Respiratory: Denies cough or hemoptysis Cardiovascular: Denies chest pain or edema. [] GI: Denies nausea, vomiting, Musculoskeletal: Denies back pain or joint pain. [] Integument: Denies rash or diaphoresis Neurologic: Denies headache, focal weakness or sensory changes. [] Endocrine: Denies polyuria or polydipsia. [] Lymphatic: Denies swollen glands. [] Psychiatric: Denies depression or anxiety. [] Heart Score: C/O Chest Pain: No Risk Factors: Risk Factors: DM, Current or recent (<one month) smoker, HTN, HLP, family hist ory of CAD, obesity. Risk Scores: Score 0 - 3: 2.5% MACE over next 6 weeks - Discharge Home Score 4 - 6: 20.3% MACE over next 6 weeks - Admit for Clinical Observation Score 7 - 10: 72.7% MACE over next 6 weeks - Early Invasive Strategies Current Medications: Current Medications Medications (Trade) Dose Ordered Sig/Low Start Time Stop Time Status Last Admin Dose Admin Albuterol/ Ipratropium (Duoneb) 9 ml 1X ONCE 10/09/20 22:00 10/09/20 22:05 DC Dexamethasone Sodium Phosphate (Decadron) 10 mg 1X ONCE 10/09/20 22:00 10/09/20 22:05 DC 10/09/20 22:16 10 MG Sodium Chloride 1,000 ml @ 1,000 mls/hr 1X ONCE 10/09/20 22:00 10/09/20 22:59 10/09/20 22:17 1,000 MLS/HR Allergies: Allergies: Allergies Coded Allergies Type Severity Reaction Last Updated Verified Penicillins Allergy Intermediate rash as a child 09/07/20 Yes Physical Exam: PE: Constitutional: Well developed, well nourished, no acute distress, non-toxic appearance. HENT: Normocephalic, atraumatic, Eyes: EOMI, conjunctiva normal, no discharge. Neck: Normal range of motion, supple, Cardiovascular: S1/2 present, regular rhythm Lungs & Thorax: Speaking in full sentences, bilateral equal chest rise, upon arrival was tachypneic when i entered the room but within seconds, is breathing at a normal rate, with mild inspiratory stridor no wheezing, no rales/crackles, is on 4 L nasal cannula with no hypoxia, is moving air Abdomen: soft, no tenderness, Skin: Warm, dry, no erythema, no rash. [] Back: No tenderness, no CVA tenderness. [] Extremities: No tenderness, no cyanosis, no unilateral lower extremity edema, Neurologic: Alert and oriented X 3, normal motor function, normal sensory function, no focal deficits noted. [] Psychologic: Affect normal, judgement normal, mood -calm but is very disorganized and manipulative, purposely evasive with questions EKG: EKG: Sinus tachycardia 100 bpm, right axis deviation, right bundle branch block present, QRS 124, QTc 495, Radiology/Procedures: Radiology/Procedures: IMAGING REPORT Signed PATIENT: TONI LEWIS ACCOUNT: [id number] : 1945 LOCATION: ER AGE: 75 SEX: F EXAM STATUS: PRE ER ORD. PHYSICIAN: NICK WEBSTER DO REASON: soa PROCEDURE: CHEST AP ONLY Exam: Chest one view INDICATION: Short of air TECHNIQUE: Frontal view of the chest Comparisons: 09/26/2020 FINDINGS: The cardiomediastinal silhouette and pulmonary vessels are within normal limits. The lung and pleural spaces are clear. IMPRESSION: No acute cardiopulmonary process. Electronically signed by: Jelani Sher MD (10/09/2020 10:12 PM) [facility] DICTATED and SIGNED BY: JELANI SHER MD DATE: 10/09/20 [id number] 0 Course & Med Decision Making: Course & Med Decision Making Pertinent Labs and Imaging studies reviewed. (See chart for details) ED encounter for multiple chronic complaints, very low suspicion for life- threatening processes. Tachycardia resolved in ED. Normal chest x-ray. Lung sounds clear after DuoNeb's. Sodium slightly more elevated than prior. Patient with no restlessness, irritability, tremors or ataxia. Patient is at her well- known baseline mental status. Prescribe steroids and albuterol inhaler. Will discharge home with strict ED return precautions were given for dyspnea, hemoptysis, chest pain, back pain or neurologic deficits. Encouraged urgent outpatient follow-up with PMD and pulmonology as needed for definitive management. Life-threatening processes were considered but are low suspicion at this time, given history, physical exam and ED workup. Pt was educated on all prescription medications and adverse effects. All patient's questions were answered and pt was stable at time of discharge. Life/limb-threatening differential includes but is not limited to, ACS, dysrhythmia, pneumothorax or hemothorax, pulmonary embolus, pneumonia, bronchoconstriction, pulmonary edema, angioedema, epiglottitis, tracheitis, Guillaume's angina, RPA/CAR BLOCKER, anaphylaxis, angioedema, cardiac tamponade or murmurs, pericarditis, myocarditis, poisoning or toxicity, sepsis or autoimmune/neurologic disease. I spoken with the patient and her caregivers. I explained the patient's condition, diagnoses and treatment plan based on the information available to me at this time. I have answered the patient and her caregiver's questions and addressed any concerns. The patient and her caregivers have a good understanding of patient's diagnosis, condition and treatment plan as can be expected at this point. Vital signs have been stable. Patient's condition is stable and appropriate for discharge from the emergency department. Patient will pursue further outpatient evaluation with primary care physician or other designated or consulting physician as outlined in the discharge instructions. The patient and/or caregivers are agreeable to this plan of care and follow-up instructions have been explained in detail. The patient and/or caregivers have received these instructions in written form and have expressed an understanding of the discharge instructions. The patient and/or caregivers are aware that any significant change of condition or worsening of symptoms should prompt immediate return to this or the closest emergency department or call to 911. Geovanna Disclaimer: Falcon Social Disclaimer: This electronic medical record was generated, in whole or in part, using a voice recognition dictation system. Departure Departure Impression: Primary Impression: COPD (chronic obstructive pulmonary disease) Additional Impression: Hypernatremia Disposition: 01 HOME / SELF CARE / HOMELESS Condition: STABLE Referrals: RADHA PARRISH MD (PCP) 1 to 2 days for evaluation Patient Instructions: Chronic Obstructive Pulmonary Disease Additional Instructions: FOLLOW UP WITH PULMONOLOGY: FOR DEFINITIVE MANAGEMENT [facility] [address] [place] [address] EMERGENCY DEPARTMENT GENERAL DISCHARGE INSTRUCTIONS Thank you for coming to [facility] Emergency Department (ED) today and trusting us with you care. We trust that you had a positive experience in our Emergency Department. If you wish to speak to the department management, you may call the Director at [phone]. YOUR FOLLOW UP INSTRUCTIONS ARE FOLLOWS: 1. Do you have a private Doctor? If you do not have a private doctor, please ask for a resource list of physicians or clinics that may be able to assist you with follow up care. 2. The Emergency Physicain has interpreted your x-rays. The X-Ray specialist will also review them. If there is a change in the findings, you will be notified in 48 hours when at all possible. 3. A lab test or culture has been done, your results will be reviewed and you will be notified if you need a change in treatment. ADDITIONAL INSTRUCTIONS AND INFORMATION: 1. Your care today has been supervised by a physician who is specially trained in emergency care. Many problems require more than one evaluation for a complete diagnosis and treatment. We recommend that you schedule your follow up appointment as recommended to ensure complete treatment of you illness or injury. If you are unable to obtain follow up care and continue to have a problem, or if your condition worsens, we recommend that you return to the ED. 2. We are not able to safely determine your condition over the phone nor are we able to give sound medical advice over the phone. For these safety reasons, if you call for medical advice we will ask you to come to the ED for further evaluation. 3. If you have any questions regarding these discharge instructions please call the ED at [phone]. SAFETY INFORMATION: In the interest of safety, wellness, and injury prevention; we encourage you to wear your sealbelt, if you smoke; quite smoking, and we encourage family to use a protective helmet for bicycling and other sporting events that present an increased risk for head injury. IF YOUR SYMPTOMS WORSEN OR NEW SYMPTOMS DEVELOP, OR YOU HAVE CONCERNS ABOUT YOUR CONDITION; OR IF YOUR CONDITION WORSENS WHILE YOU ARE WAITING FOR YOUR FOLLOW UP APPOINTMENT; EITHER CONTACT YOUR PRIMARY CARE DOCTOR, THE PHYSICIAN WHOSE NAME AND NUMBER YOU WERE GIVEN, OR RETURN TO THE ED IMMEDIATELY. NICK MCCOY DO Oct 09, 2020 22:56
[2020-10-09 23:11] LABS: BASO % 1 % (0-3); EOS # 0.1 x10^3/uL (0.0-0.7); EOS % 1 % (0-3); HEMATOCRIT 42.7 % (36.0-47.0); HEMOGLOBIN 14.1 g/dL (12.0-15.5); LYMPH # 0.6 x10^3/uL (1.0-4.8); LYMPH % 12 % (24-48); MEAN CORPUSCULAR HEMOGLOBIN 29 pg (25-35); MEAN CORPUSCULAR HGB CONC 33 g/dL (31-37); MEAN CORPUSCULAR VOLUME 87 fL (79-100); MONO # 0.5 x10^3/uL (0.0-1.1); MONO % 9 % (0-9); NEUT # 3.9 x10^3/uL (1.8-7.7); NEUT % 77 % (31-73); PLATELET COUNT 234 x10^3/uL (140-400); RED BLOOD COUNT 4.92 x10^6/uL (3.50-5.40); RED CELL DISTRIBUTION WIDTH 14.6 % (11.5-14.5)
[2020-10-09 23:19] LABS: CALCIUM 8.6 mg/dL (8.5-10.1); GFR 54.1; POTASSIUM 3.6 mmol/L (3.5-5.1)
--- NOTE | 2020-10-10 00:06 | EKG ---
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
[2020-10-10 00:33] VITALS: BP 167/77
== END 2020-10-10 01:09 | disposition home or self-care (01) ==
LOC: ER 21:18
DX: J44.9 Chronic obstructive pulmonary disease, unspecified (principal); E87.0 Hyperosmolality and hypernatremia; I10 Essential (primary) hypertension; F31.9 Bipolar disorder, unspecified; Z87.891 Personal history of nicotine dependence; Z88.0 Allergy status to penicillin
CPT/HCPCS: 36415; 71045; 80048; 85025; 93005; 94640; 96361; 96374; 99285; J1100; J7030

== ENCOUNTER 2020-10-12 16:53 | Emergency (ER) | payer MEDICARE ==
[~2020-10-12] VITALS: Ht 165.1 cm; Wt 75.0 kg
--- NOTE | 2020-10-12 17:12 | PHYS DOC ---
Past Medical History Past Medical History: Anxiety, Bipolar, COPD, Hypertension, Other Additional Past Medical Histor: SHINGLES Past Surgical History: Appendectomy, Cholecystectomy, Hysterectomy Additional Past Surgical Histo: CYSTS FROM BREASTS Smoking Status: Former Smoker Alcohol Use: None Drug Use: None General Adult HPI: HPI: Patient is a 75 year old female with history of hypertension, COPD, anxiety, bipolar, former smoker, who presents to the ED today from home to be evaluated for shortness of breath. Patient has been seen in the ED multiple times for this complaints. She was in the ED 3 days ago for the same complaint. This is her fifth visit in the last 30 days for the same complaint. Patient states symptoms began a couple minutes prior to coming to the ED though she reports this is a chronic problem. She is on oxygen 2 L at home. Review of Systems: Review of Systems: Constitutional: Denies fever or chills. [] Eyes: Denies change in visual acuity. [] HENT: Denies nasal congestion or sore throat. [] Respiratory: Reports shortness of breath. Denies cough Cardiovascular: Denies chest pain or edema. [] GI: Denies abdominal pain, nausea, vomiting, bloody stools or diarrhea. [] : Denies dysuria. [] Musculoskeletal: Denies back pain or joint pain. [] Integument: Denies rash. [] Neurologic: Denies headache, focal weakness or sensory changes. [] Psychiatric: Denies depression or anxiety. [] Heart Score: C/O Chest Pain: N/A Risk Factors: Risk Factors: DM, Current or recent (<one month) smoker, HTN, HLP, family history of CAD, obesity. Risk Scores: Score 0 - 3: 2.5% MACE over next 6 weeks - Discharge Home Score 4 - 6: 20.3% MACE over next 6 weeks - Admit for Clinical Observation Score 7 - 10: 72.7% MACE over next 6 weeks - Early Invasive Strategies Allergies: Allergies: Allergies Coded Allergies Type Severity Reaction Last Updated Verified Penicillins Allergy Intermediate rash as a child 09/07/20 Yes Physical Exam: PE: Constitutional: Well developed, well nourished, no acute distress, non-toxic appearance. [] HENT: Normocephalic, atraumatic, bilateral external ears normal, oropharynx moist, no oral exudates, nose normal. [] Eyes: PERRLA, EOMI, conjunctiva normal, no discharge. [] Neck: Normal range of motion, no tenderness, supple, no stridor. [] Cardiovascular:Heart rate regular rhythm, no murmur [] Lungs & Thorax: Bilateral breath sounds clear to auscultation [] Abdomen: Bowel sounds normal, soft, no tenderness, no masses, no pulsatile masses. [] Skin: Warm, dry, no erythema, no rash. [] Back: No tenderness, no CVA tenderness. [] Extremities: No tenderness, no cyanosis, no clubbing, ROM intact, no edema. [] Neurologic: Alert and oriented X 3, normal motor function, normal sensory function, no focal deficits noted. [] Psychologic: Affect normal, judgement normal, mood normal. [] EKG: EK interpreted by Dr. Skaggs sinus rhythm heart rate 83 no STEMI Radiology/Procedures: Radiology/Procedures: []PROCEDURE: PORTABLE CHEST 1V EXAM: CHEST 1 VIEW History: Shortness of breath COMPARISON: 10/09/2020 TECHNIQUE: Single portable radiograph of the chest FINDINGS: The cardiac silhouette is unremarkable. Minimal bibasilar lung atelectasis or infiltrates. The costophrenic sulci are clear and well demarcated. IMPRESSION: Minimal bibasilar lung atelectasis or infiltrates. Electronically signed by: Brenden Wright MD (10/12/2020 5:25 PM) [id number] DICTATED and SIGNED BY: BRENDEN WRIGHT MD DATE: 10/12/20 [id number] 0 Course & Med Decision Making: Course & Med Decision Making Pertinent Labs and Imaging studies reviewed. (See chart for details) This is a 75-year-old female patient presenting to the ED today complaining of shortness of breath that began couple minutes prior to coming to the ED though this is a chronic problem on this patient. She was in the ED 3 days ago for the same complaint. This is her fifth visit for shortness of breath in the last 30 days. Vitals on arrival to the ED temperature 97.5, heart rate 87, respiration 22 on 2 L of oxygen, blood pressure 144/100, O2 sats 97%. Chest x-ray noted for Minimal bibasilar lung atelectasis or infiltrates. CBC with a normal WBC. CMP with sodium of 149, potassium of 3.0, CO2 of 41, this is chronic on this patient. Creatinine 1.1 with BUN of 28. BNP of 1326. Patient was given potassium replacement in the ED. Given Lasix. Patient refused ABGs. Discharge to home. Patient has multiple visits in this ED, it appears to be social issue, she lives by herself at home and gets lonely. Informed her she can call one of her children and they can come be with her tonight. Geovanna Disclaimer: Geovanna Disclaimer: This electronic medical record was generated, in whole or in part, using a voice recognition dictation system. Departure Departure Impression: Primary Impression: COPD exacerbation Additional Impressions: Hypokalemia Acute diastolic CHF (congestive heart failure), NYHA class 2 Disposition: 01 HOME / SELF CARE / HOMELESS Condition: STABLE Referrals: RADHA PARRISH MD (PCP) follow up next week Patient Instructions: Chronic Obstructive Pulmonary Disease Additional Instructions: You were evaluated in the emergency room. We highly recommend you follow-up with your primary care doctor. Continue using oxygen as needed. CHANDANA KIM SCAFFOLD ERECTOR Oct 12, 2020 17:12
[2020-10-12] MEDS ORDERED: methylPREDNISolone SOD SUCC PF 125 MG/2 ML VIAL. IV ONE (17:15)
--- NOTE | 2020-10-12 17:28 | RAD ---
EXAM: CHEST 1 VIEW History: Shortness of breath COMPARISON: 10/09/2020 TECHNIQUE: Single portable radiograph of the chest FINDINGS: The cardiac silhouette is unremarkable. Minimal bibasilar lung atelectasis or infiltrates. The costophrenic sulci are clear and well demarcated. IMPRESSION: Minimal bibasilar lung atelectasis or infiltrates. Electronically signed by: Brenden Wright MD (10/12/2020 5:25 PM) [id number]
[2020-10-12 17:31] LABS: BASO % 1 % (0-3); EOS # 0.2 x10^3/uL (0.0-0.7); EOS % 4 % (0-3); HEMATOCRIT 36.6 % (36.0-47.0); HEMOGLOBIN 12.5 g/dL (12.0-15.5); LYMPH % 24 % (24-48); MEAN CORPUSCULAR HEMOGLOBIN 30 pg (25-35); MEAN CORPUSCULAR HGB CONC 34 g/dL (31-37); MEAN CORPUSCULAR VOLUME 87 fL (79-100); MONO # 0.7 x10^3/uL (0.0-1.1); MONO % 17 % (0-9); NEUT # 2.3 x10^3/uL (1.8-7.7); NEUT % 54 % (31-73); PLATELET COUNT 278 x10^3/uL (140-400); RED BLOOD COUNT 4.22 x10^6/uL (3.50-5.40); RED CELL DISTRIBUTION WIDTH 15.2 % (11.5-14.5); WHITE BLOOD COUNT 4.3 x10^3/uL (4.0-11.0)
[2020-10-12 17:48] LABS: ALBUMIN 3.1 g/dL (3.4-5.0); ALBUMIN/GLOBULIN RATIO 1.1 (1.0-1.7); CALCIUM 8.2 mg/dL (8.5-10.1); CREATININE 1.1 mg/dL (0.6-1.0); GFR 48.4; MAGNESIUM 1.5 mg/dL (1.8-2.4); TOTAL BILIRUBIN 0.8 mg/dL (0.2-1.0); TOTAL PROTEIN 5.9 g/dL (6.4-8.2)
--- NOTE | 2020-10-12 18:03 | EKG ---
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
[2020-10-12] MEDS ORDERED: POTASSIUM CHLORIDE 20 MEQ TABLET.ER. PO ONE ×2 (18:30→19:30)
--- NOTE | 2020-10-12 18:53 | NUR ---
Patient yelling and moaning about refusing ABG, adv her it helps us know how to treat her difficulty breathing. Ana Paula FLORENTINO notified.
[2020-10-12] MEDS ORDERED: FUROSEMIDE 40 MG TABLET. PO ONE (19:30)
[2020-10-12 20:07] VITALS: BP 176/102
== END 2020-10-12 21:18 | disposition home or self-care (01) ==
LOC: ER 16:53
DX: J44.1 Chronic obstructive pulmonary disease with (acute) exacerbation (principal); E87.6 Hypokalemia; I11.0 Hypertensive heart disease with heart failure; I50.31 Acute diastolic (congestive) heart failure; F31.9 Bipolar disorder, unspecified; F41.9 Anxiety disorder, unspecified; Z87.891 Personal history of nicotine dependence; Z90.89 Acquired absence of other organs; Z90.710 Acquired absence of both cervix and uterus; Z90.49 Acquired absence of other specified parts of digestive tract; Z88.0 Allergy status to penicillin
CPT/HCPCS: 36415; 71045; 80053; 83735; 83880; 84443; 84484; 85025; 93005; 96374; 99285; J2930

== ENCOUNTER 2020-10-15 21:03 | Inpatient (IN) | payer MEDICARE ==
[~2020-10-15] VITALS: Ht 165.1 cm; Wt 70.9 kg
--- NOTE | 2020-10-15 21:14 | PHYS DOC ---
Past Medical History Past Medical History: Anxiety, Bipolar, COPD, Depression, Hypertension, Other Additional Past Medical Histor: SHINGLES Past Surgical History: Appendectomy, Cholecystectomy, Hysterectomy Additional Past Surgical Histo: CYSTS FROM BREASTS Smoking Status: Former Smoker Alcohol Use: None Drug Use: None General Adult EDM: Chief Complaint: SHORTNESS OF BREATH HPI: HPI: Patient is a 75 year old female with a past medical history of anxiety, bipolar, COPD, depression and hypertension presents with a chief complaint of shortness of breath. Patient states shortness of breath is ongoing for the last 3 to 4 hours. Patient's breathing has become worse since onset. Patient has a cough without sputum production. She denies any associated chest pain. Patient states to arrival she used her home breathing treatments without improvement. Patient is chronically on 2 L nasal cannula. Upon EMS arrival patient was found to have an oxygen saturation of 85%. In the emergency department patient has been 100% on 4 L. Patient denies any recent fevers or chills. Patient has received her Covid vaccination. Review of Systems: Review of Systems: Review of systems: Constitutional symptoms- No fever, no chills. Eyes- No Discharge, No Visual Loss Respiratory symptoms- Positive shortness of breath, No wheezing, No Dyspnea on Exertion positive cough Cardiovascular Systems; No chest pain, No Palpitations, No syncope Gastrointestinal symptoms: NO abdominal pain, no nausea, no vomiting or diar mary. Genitourinary symptoms: No dysuria. Musculoskeletal symptoms: No back pain No extremity pain. NEUROLOGICAL Symptoms: No headache, no generalized weakness; No focal Weakness Skin: No rash. Heart Score: C/O Chest Pain: N/A Risk Factors: Risk Factors: DM, Current or recent (<one month) smoker, HTN, HLP, family histo ry of CAD, obesity. Risk Scores: Score 0 - 3: 2.5% MACE over next 6 weeks - Discharge Home Score 4 - 6: 20.3% MACE over next 6 weeks - Admit for Clinical Observation Score 7 - 10: 72.7% MACE over next 6 weeks - Early Invasive Strategies Allergies: Allergies: Allergies Coded Allergies Type Severity Reaction Last Updated Verified Penicillins Allergy Intermediate rash as a child 09/07/20 Yes Physical Exam: PE: General: alert, no acute distress. Skin: warm, dry and intact. HENT: bilateral external ears normal, oropharynx moist, nose normal. Head:: Normocephalic, atraumatic. Neck: Trachea midline. Eyes: EOMI, Normal conjunctiva, No drainage CARDIOVASCULAR: Regular rate and rhythm RESPIRATORY: No respiratory distress Back: Full range of motion. Skin: Warm, dry, no erythema, no rash. MUSCULOSKELETAL: Full range of motion of bilateral upper and lower extremities. GASTROINTESTINAL: Abdomen soft without rebound or guarding. NEUROLOGICAL: Alert and noted to person, place and time. No neurological deficits observed Psychiatric: Cooperative. Normal judgment EKG: EKG: [] Performed at 2110 Rate 99 Sinus rhythm with incomplete right bundle branch block No ST elevation No ST depression No acute GA Radiology/Procedures: Radiology/Procedures: [] Impression: Exam: Chest one view INDICATION: Shortness of breath TECHNIQUE: Frontal view of the chest Comparisons: 10/12/2020 FINDINGS: The cardiomediastinal silhouette and pulmonary vessels are within normal limits. The lung and pleural spaces are clear. IMPRESSION: No acute cardiopulmonary process. Course & Med Decision Making: Course & Med Decision Making Pertinent Labs and Imaging studies reviewed. (See chart for details) [] Patient was evaluated for chief complaint. Work-up consisted of laboratory analysis and radiologic imaging. Results reviewed and discussed with patient. Treatment included Solu-Medrol and DuoNeb. Patient is oxygen saturation 100% on 4 L nasal cannula. Patient admitted to the hospitalist for further evaluation and treatment. Geovanna Disclaimer: Geovanna Disclaimer: This electronic medical record was generated, in whole or in part, using a voice recognition dictation system. Departure Departure Impression: Primary Impression: COPD (chronic obstructive pulmonary disease) Additional Impression: COPD exacerbation Disposition: ADMITTED INPATIENT Condition: STABLE Referrals: RADHA PARRISH MD (PCP) ANIBAL HWANG DO Oct 15, 2020 21:14
[2020-10-15 21:27] LABS: BASO % 1 % (0-3); EOS # 0.1 x10^3/uL (0.0-0.7); EOS % 2 % (0-3); HEMATOCRIT 40.4 % (36.0-47.0); HEMOGLOBIN 13.4 g/dL (12.0-15.5); LYMPH % 17 % (24-48); MEAN CORPUSCULAR HEMOGLOBIN 29 pg (25-35); MEAN CORPUSCULAR HGB CONC 33 g/dL (31-37); MEAN CORPUSCULAR VOLUME 88 fL (79-100); MONO # 0.8 x10^3/uL (0.0-1.1); MONO % 14 % (0-9); NEUT # 3.8 x10^3/uL (1.8-7.7); NEUT % 67 % (31-73); PLATELET COUNT 316 x10^3/uL (140-400); RED CELL DISTRIBUTION WIDTH 15.7 % (11.5-14.5); WHITE BLOOD COUNT 5.7 x10^3/uL (4.0-11.0)
[2020-10-15 21:46] LABS: CALCIUM 8.5 mg/dL (8.5-10.1); GFR 54.1; POTASSIUM 3.8 mmol/L (3.5-5.1)
[2020-10-15 21:51] LABS: ALBUMIN 3.3 g/dL (3.4-5.0); ALBUMIN/GLOBULIN RATIO 1.1 (1.0-1.7); TOTAL BILIRUBIN 0.9 mg/dL (0.2-1.0); TOTAL PROTEIN 6.2 g/dL (6.4-8.2)
--- NOTE | 2020-10-15 21:52 | RAD ---
Exam: Chest one view INDICATION: Shortness of breath TECHNIQUE: Frontal view of the chest Comparisons: 10/12/2020 FINDINGS: The cardiomediastinal silhouette and pulmonary vessels are within normal limits. The lung and pleural spaces are clear. IMPRESSION: No acute cardiopulmonary process. Electronically signed by: Jelani Garcia MD (10/15/2020 9:50 PM) ADA
--- NOTE | 2020-10-15 22:27 | EKG ---
[facility] [address] [place] [address] Test Date: 2020-10-15 Test Time: 21:10:32 Pat Name: TONI LEWIS Department: Room: Gender: F Unishear Operator: : 1945 Requested By: ANIBAL HWANG Order Number: [id number] Reading MD: Measurements Intervals [place] Rate: 99 P: 59 WA: 156 QRS: 65 QRSD: 116 T: 4 QT: 372 QTc: 477 Interpretive Statements SINUS RHYTHM INCOMPLETE RIGHT BUNDLE BRANCH BLOCK T ABNORMALITY IN INFERIOR LEADS PROLONGED QT ABNORMAL ECG RI6.02 No previous ECG available for comparison
[2020-10-15] MEDS ORDERED: methylPREDNISolone SOD SUCC PF 125 MG/2 ML VIAL. IV ONE (23:00)
[2020-10-15] MEDS ORDERED: MORPHINE SULFATE 2 MG/ML VIAL. IV PRN (23:30)
[2020-10-15] MEDS ORDERED: ONDANSETRON PF 4 MG/2 ML VIAL. IV PRN (23:30)
[2020-10-16] VITALS (7 sets, daily range): BP systolic 105–158; BP diastolic 43–81
[2020-10-16] MEDS ORDERED: IPRATRPIUM/ALBUTEROL 0.5/2.5MG 3 ML NEBU. NEB ONE
[2020-10-16] MEDS ORDERED: prednisone (00:32)
--- NOTE | 2020-10-16 00:51 | NUR ---
In obtaining patient's medication history, she says she is on prednisone, but not the 50mg on the rec list, but she does not know the dose, denies taking a water pill, but is unsure.
[2020-10-16] MEDS ORDERED: IPRATRPIUM/ALBUTEROL 0.5/2.5MG 3 ML NEBU. NEB SCH (08:00)
[2020-10-16] MEDS ORDERED: DOCUSATE SODIUM 100 MG CAPSULE. PO PRN (10:30)
[2020-10-16] MEDS ORDERED: cefTRIAXone IV Push 1 GM VIAL. IVP SCH (10:30)
[2020-10-16] MEDS: ASPIRIN ENTERIC COATED 81 MG TABLET.DR. PO SCH (10:51)
[2020-10-16] MEDS: hydroCHLOROthiazide 12.5 MG CAPSULE PO SCH (10:51)
[2020-10-16] MEDS: LISINOPRIL 20 MG TABLET PO SCH (10:52)
[2020-10-16] MEDS: IPRATRPIUM/ALBUTEROL 0.5/2.5MG 3 ML NEBU. NEB SCH ×3 (11:24→20:00)
--- NOTE | 2020-10-16 11:49 | HP ---
ADMIT DATE: 10/16/2020 CHIEF COMPLAINT: Shortness of breath. HISTORY OF PRESENT ILLNESS: The patient is a pleasant 75-year-old female who has a history of COPD and bipolar disease among others. Please see below. Basically, she presented with shortness of breath and cough, has been occurring for several days and got worse over the past 3-4 hours. She increased her home meds, but that was not working. While in the ER, she was noted to be hypoxic. She was placed on 4 liters of oxygen. I discussed the case with ER physician. We will admit the patient and give her some IV antibiotics and COPD protocol. PAST MEDICAL HISTORY: COPD, bipolar, anxiety, depression, hypertension, shingles, appendectomy, cholecystectomy, hysterectomy, breast cyst, previous tobacco abuse. She states she quit 8 years ago. ALLERGIES: PENICILLIN. FAMILY HISTORY: COPD. SOCIAL HISTORY: She quit smoking 8 years ago. No drink or drugs. MEDICATIONS: Reviewed. Please refer to the MRAD. REVIEW OF SYSTEMS: GENERAL: No history of weight change, weakness or fevers. SKIN: No bruising, hair changes or rashes. EYES: No blurred, double or loss of vision. NOSE AND THROAT: No history of nosebleeds, hoarseness or sore throat. HEART: No history of palpitations, chest pain or shortness of breath on exertion. LUNGS: She complains of shortness of breath. Denies cough, hemoptysis or wheezing. GASTROINTESTINAL: Denies changes in appetite, nausea, vomiting, diarrhea or constipation. GENITOURINARY: No history of frequency, urgency, hesitancy or nocturia. NEUROLOGIC: She complains of some memory issues. Denies history of numbness, tingling, tremor or weakness. PSYCHIATRIC: No history of panic, anxiety or depression. ENDOCRINE: No history of heat or cold intolerance, polyuria or polydipsia. EXTREMITIES: Denies muscle weakness, joint pain, pain on walking or stiffness. PHYSICAL EXAMINATION: VITALS: Within normal limits and are stable. GENERAL: No apparent distress. Alert and oriented. HEENT: Normal cephalic atraumatic, external auditory canals are patent. Eyes: Extraocular muscles are intact, pupils are equally round and reactive to light and accommodation. MUSCULOSKELETAL: Well developed, well nourished, good range of motion. ENDOCRINE: No thyromegaly was palpated. LYMPHATICS: No cervical chain or axillary nodes were noted. HEMATOPOIETIC: No bruising. NECK: Supple, no JVD, no thyromegaly was noted. LUNGS: She has bibasilar crackles with some wheezing. HEART: RRR, S1, S2 present. Peripheral pulses intact, no obvious murmurs were noted. ABDOMEN: soft, nontender. Positive bowel sounds, no organomegaly, normal bowel sounds. EXTREMITIES: Without any cyanosis, clubbing, or edema. Pedal pulses intact, Homans sign is negative. NEUROLOGIC: She is pleasantly confused. She thinks the year is 1970. Normal speech, normal tone. Moves all extremities, no obvious focal deficits. PSYCHIATRIC: Normal affect, normal mood. Stable. SKIN: No ulcerations or rashes, good skin turgor, no jaundice. VASCULAR: Good capillary refill, neurovascular bundle appears to be intact. LABORATORY DATA: White count is 5. Electrolytes: Sodium 150, potassium 3.8, chloride 106, bicarb 39, BUN 18, creatinine 1, glucose 126. Chest x-ray shows no acute disease. ASSESSMENT AND PLAN: Respiratory failure with hypoxia, probable chronic obstructive pulmonary disease exacerbation, possible clinical pneumonia in an older lady who has the above-noted comorbidities. The patient has been admitted. We are starting COPD protocol including steroids, breathing treatments, oxygen, empiric IV antibiotics, home meds, DVT prophylaxis. Full code. Long-term prognosis is guarded. [facility] [place]: Jose TID: [id number]
[2020-10-16] MEDS: methylPREDNISolone SOD SUCC PF 40 MG/ML VIAL. IV SCH (21:17)
[2020-10-16] MEDS: LACTOBACILLUS RHAMNOSUS GG 1 CAPSULE. PO SCH (21:17)
[2020-10-17 03:28] VITALS: BP 111/62
[2020-10-17 04:40] LABS: BASO % 0 % (0-3); EOS % 0 % (0-3); HEMATOCRIT 35.7 % (36.0-47.0); HEMOGLOBIN 12.1 g/dL (12.0-15.5); LYMPH # 0.3 x10^3/uL (1.0-4.8); LYMPH % 5 % (24-48); MEAN CORPUSCULAR HEMOGLOBIN 29 pg (25-35); MEAN CORPUSCULAR HGB CONC 34 g/dL (31-37); MEAN CORPUSCULAR VOLUME 87 fL (79-100); MONO # 0.2 x10^3/uL (0.0-1.1); MONO % 3 % (0-9); NEUT # 6.2 x10^3/uL (1.8-7.7); NEUT % 92 % (31-73); PLATELET COUNT 298 x10^3/uL (140-400); RED CELL DISTRIBUTION WIDTH 15.6 % (11.5-14.5); WHITE BLOOD COUNT 6.7 x10^3/uL (4.0-11.0)
[2020-10-17 04:56] LABS: GFR 54.1; POTASSIUM 4.4 mmol/L (3.5-5.1)
[2020-10-17 05:27] LABS: % BANDS 4 % (0-9); % LYMPHS 7 % (24-48); % MONOS 4 % (0-10); % SEGS 85 % (35-66); PLT ESTIMATE ADEQUATE (ADEQUATE)
[2020-10-17 07:00] VITALS: BP 152/62
[2020-10-17] MEDS: IPRATRPIUM/ALBUTEROL 0.5/2.5MG 3 ML NEBU. NEB SCH ×4 (08:00→19:43)
[2020-10-17] MEDS: LACTOBACILLUS RHAMNOSUS GG 1 CAPSULE. PO SCH ×2 (08:17→22:00)
[2020-10-17] MEDS: methylPREDNISolone SOD SUCC PF 40 MG/ML VIAL. IV SCH (08:17)
[2020-10-17] MEDS: hydroCHLOROthiazide 12.5 MG CAPSULE PO SCH (08:17)
[2020-10-17] MEDS: ASPIRIN ENTERIC COATED 81 MG TABLET.DR. PO SCH (08:17)
[2020-10-17] MEDS: LISINOPRIL 20 MG TABLET PO SCH (08:20)
[2020-10-17 11:00] VITALS: BP 136/49
--- NOTE | 2020-10-17 11:17 | PDOC ---
[facility] [facility] PROGRESS NOTE Date of Service DOS: DATE: 10/17/20 TIME: 11:16 Chief Complaint Chief Complaint Respiratory failure with hypoxia, probable chronic obstructive pulmonary disease exacerbation, possible clinical pneumonia History of the following; COPD, bipolar, anxiety, depression, hypertension, shingles, appendectomy, cholecystectomy, hysterectomy, breast cyst, previous tobacco abuse. She states she quit 8 years ago. History of Present Illness History of Present Illness 10/17/2020 Patient seen and examined She is resting with no apparent distress Discussed with RN Patient is still confused Chart reviewed Vitals/I&O Vitals/I&O: Vital Signs Date Time Temp Pulse Resp B/P (MAP) Pulse Ox O2 Delivery O2 Flow Rate FiO2 10/17/20 11:04 97 Nasal Cannula 4.0 10/17/20 08:20 76 152/62 10/17/20 07:00 97.7 18 97.7 I & O 10/16/20 10/16/20 10/17/20 15:00 23:00 07:00 Output Total 200 ml Balance -200 ml Physical Exam General: No acute distress Heart: Regular rate Lungs: Clear, Crackles Abdomen: Normal bowel sounds Extremities: No clubbing Skin: No rashes Labs Labs: Laboratory Tests Test 10/16/20 12:05 10/17/20 04:00 Troponin I Quantitative < 0.017 ng/mL (0.000-0.055) White Blood Count 6.7 x10^3/uL (4.0-11.0) Red Blood Count 4.10 x10^6/uL (3.50-5.40) Hemoglobin 12.1 g/dL (12.0-15.5) Hematocrit 35.7 % (36.0-47.0) Mean Corpuscular Volume 87 fL (79-100) Mean Corpuscular Hemoglobin 29 pg (25-35) Mean Corpuscular Hemoglobin Concent 34 g/dL (31-37) Red Cell Distribution Width 15.6 % (11.5-14.5) Platelet Count 298 x10^3/uL (140-400) Neutrophils (%) (Auto) 92 % (31-73) Lymphocytes (%) (Auto) 5 % (24-48) Monocytes (%) (Auto) 3 % (0-9) Eosinophils (%) (Auto) 0 % (0-3) Basophils (%) (Auto) 0 % (0-3) Neutrophils # (Auto) 6.2 x10^3/uL (1.8-7.7) Lymphocytes # (Auto) 0.3 x10^3/uL (1.0-4.8) Monocytes # (Auto) 0.2 x10^3/uL (0.0-1.1) Eosinophils # (Auto) 0.0 x10^3/uL (0.0-0.7) Basophils # (Auto) 0.0 x10^3/uL (0.0-0.2) Segmented Neutrophils % 85 % (35-66) Band Neutrophils % 4 % (0-9) Lymphocytes % 7 % (24-48) Monocytes % 4 % (0-10) Platelet Estimate Adequate (ADEQUATE) Sodium Level 143 mmol/L (136-145) Potassium Level 4.4 mmol/L (3.5-5.1) Chloride Level 104 mmol/L (98-107) Carbon Dioxide Level 33 mmol/L (21-32) Anion Gap 6 (6-14) Blood Urea Nitrogen 20 mg/dL (7-20) Creatinine 1.0 mg/dL (0.6-1.0) Estimated GFR (Cockcroft-Gault) 54.1 Glucose Level 240 mg/dL (70-99) Calcium Level 8.0 mg/dL (8.5-10.1) Assessment and Plan Assessmemt and Plan Problems Medical Problems: (1) COPD (chronic obstructive pulmonary disease) Status: Acute (2) COPD exacerbation Status: Acute Respiratory failure with hypoxia, metabolic encephalopathy, probable chronic obstructive pulmonary disease exacerbation, possible clinical pneumonia Perhaps an element of early dementia? History of the following; COPD, bipolar, anxiety, depression, hypertension, shingles, appendectomy, cholecystectomy, hysterectomy, breast cyst, previous tobacco abuse. She states she quit 8 years ago. Plan Changing to p.o. antibiotics O2 per nasal cannula Nebulizers Appreciate subspecialist input Changing to p.o. steroids Home meds DVT prophylaxis Full code Might be ready for discharge tomorrow? Comment Review of Relevant I have reviewed the following items xin (where applicable) has been applied. Medications: Current Medications Medications (Trade) Dose Ordered Sig/Low Route PRN Reason Start Time Stop Time Status Last Admin Dose Admin Methylprednisolone Sodium Succinate (SOLU-Medrol 40MG VIAL) 40 mg BID IV 10/16/20 21:00 10/17/20 08:17 Albuterol/ Ipratropium (Duoneb) 3 ml RTQID NEB 10/16/20 12:00 10/17/20 11:03 Aspirin (Ecotrin) 81 mg DAILYWBKFT PO 10/16/20 12:00 10/17/20 08:17 Lactobacillus Rhamnosus (Culturelle) 1 cap BID PO 10/16/20 21:00 10/17/20 08:17 Justifications for Admission Other Justification APPLE SUTTON III DO Oct 17, 2020 11:16
[2020-10-17] MEDS: predniSONE 10 MG TABLET PO SCH (12:11)
[2020-10-17 15:00] VITALS: BP 149/67
[2020-10-17] MEDS ORDERED: ALBUTEROL SULFATE 2.5 MG/3 ML NEBU. NEB PRN (16:00)
[2020-10-17] MEDS: LORazepam 0.5 MG TABLET PO PRN (16:21)
[2020-10-17 19:00] VITALS: BP 113/52
[2020-10-17] MEDS: AMOXICILLIN/K CLAV 875/125MG TABLET. PO SCH (22:00)
[2020-10-17 23:02] VITALS: BP 119/49
[2020-10-18] MEDS ORDERED: ACETAMINOPHEN 325 MG TABLET. PO PRN (02:45)
[2020-10-18 03:05] VITALS: BP 145/70
[2020-10-18 06:27] LABS: BASO % 0 % (0-3); EOS % 0 % (0-3); HEMATOCRIT 33.7 % (36.0-47.0); LYMPH # 0.7 x10^3/uL (1.0-4.8); LYMPH % 10 % (24-48); MEAN CORPUSCULAR HEMOGLOBIN 29 pg (25-35); MEAN CORPUSCULAR HGB CONC 33 g/dL (31-37); MEAN CORPUSCULAR VOLUME 87 fL (79-100); MONO # 0.8 x10^3/uL (0.0-1.1); MONO % 11 % (0-9); NEUT # 5.4 x10^3/uL (1.8-7.7); NEUT % 79 % (31-73); PLATELET COUNT 248 x10^3/uL (140-400); RED BLOOD COUNT 3.86 x10^6/uL (3.50-5.40); RED CELL DISTRIBUTION WIDTH 15.6 % (11.5-14.5); WHITE BLOOD COUNT 6.9 x10^3/uL (4.0-11.0)
[2020-10-18 06:39] LABS: CALCIUM 7.8 mg/dL (8.5-10.1); CREATININE 0.9 mg/dL (0.6-1.0); POTASSIUM 3.7 mmol/L (3.5-5.1)
[2020-10-18 07:00] VITALS: BP 154/76
[2020-10-18] MEDS: IPRATRPIUM/ALBUTEROL 0.5/2.5MG 3 ML NEBU. NEB SCH ×4 (07:51→18:06)
[2020-10-18] MEDS: predniSONE 10 MG TABLET PO SCH (08:48)
[2020-10-18] MEDS: hydroCHLOROthiazide 12.5 MG CAPSULE PO SCH (08:49)
[2020-10-18] MEDS: LISINOPRIL 20 MG TABLET PO SCH (08:49)
[2020-10-18] MEDS: LACTOBACILLUS RHAMNOSUS GG 1 CAPSULE. PO SCH ×2 (08:49→20:38)
[2020-10-18] MEDS: ASPIRIN ENTERIC COATED 81 MG TABLET.DR. PO SCH (08:49)
[2020-10-18] MEDS: AMOXICILLIN/K CLAV 875/125MG TABLET. PO SCH ×2 (08:49→20:38)
[2020-10-18 11:00] VITALS: BP 140/54
[2020-10-18 15:00] VITALS: BP 109/43
--- NOTE | 2020-10-18 15:15 | PDOC ---
[facility] PROGRESS NOTE Date of Service DOS: DATE: 10/18/20 TIME: 15:13 Chief Complaint Chief Complaint Respiratory failure with hypoxia, probable chronic obstructive pulmonary disease exacerbation, possible clinical pneumonia History of the following; COPD, bipolar, anxiety, depression, hypertension, shingles, appendectomy, cholecystectomy, hysterectomy, breast cyst, previous tobacco abuse. She states she quit 8 years ago. History of Present Illness History of Present Illness 10/18/2020 Patient seen and evaluated bedside. She is currently breathing on 2.5 L nasal cannula, which she states is around how much oxygen she wears at home. Work [facility] PT recommending SNF. Patient states she has tried PT in the past and would like to think about whether or not she is willing to pursue SNF again. If not agreeable to acute rehab, patient may discharge home with home health tomorrow on oral Augmentin and oral prednisone. 10/17/2020 Patient seen and examined She is resting with no apparent distress Discussed with RN Patient is still confused Chart reviewed Vitals/I&O Vitals/I&O: Vital Signs Date Time Temp Pulse Resp B/P (MAP) Pulse Ox O2 Delivery O2 Flow Rate FiO2 10/18/20 11:37 93 Nasal Cannula 2.5 10/18/20 11:00 97.7 72 18 140/54 (82) 97.7 Physical Exam General: Alert, Oriented X3, Cooperative, No acute distress Heart: Regular rate Lungs: Crackles Abdomen: Normal bowel sounds Extremities: No clubbing Skin: No rashes Labs Labs: Laboratory Tests Test 10/18/20 05:35 White Blood Count 6.9 x10^3/uL (4.0-11.0) Red Blood Count 3.86 x10^6/uL (3.50-5.40) Hemoglobin 11.0 g/dL (12.0-15.5) Hematocrit 33.7 % (36.0-47.0) Mean Corpuscular Volume 87 fL (79-100) Mean Corpuscular Hemoglobin 29 pg (25-35) Mean Corpuscular Hemoglobin Concent 33 g/dL (31-37) Red Cell Distribution Width 15.6 % (11.5-14.5) Platelet Count 248 x10^3/uL (140-400) Neutrophils (%) (Auto) 79 % (31-73) Lymphocytes (%) (Auto) 10 % (24-48) Monocytes (%) (Auto) 11 % (0-9) Eosinophils (%) (Auto) 0 % (0-3) Basophils (%) (Auto) 0 % (0-3) Neutrophils # (Auto) 5.4 x10^3/uL (1.8-7.7) Lymphocytes # (Auto) 0.7 x10^3/uL (1.0-4.8) Monocytes # (Auto) 0.8 x10^3/uL (0.0-1.1) Eosinophils # (Auto) 0.0 x10^3/uL (0.0-0.7) Basophils # (Auto) 0.0 x10^3/uL (0.0-0.2) Sodium Level 146 mmol/L (136-145) Potassium Level 3.7 mmol/L (3.5-5.1) Chloride Level 107 mmol/L (98-107) Carbon Dioxide Level 36 mmol/L (21-32) Anion Gap 3 (6-14) Blood Urea Nitrogen 20 mg/dL (7-20) Creatinine 0.9 mg/dL (0.6-1.0) Estimated GFR (Cockcroft-Gault) 61.0 Glucose Level 118 mg/dL (70-99) Calcium Level 7.8 mg/dL (8.5-10.1) Assessment and Plan Assessmemt and Plan Problems Medical Problems: (1) COPD (chronic obstructive pulmonary disease) Status: Acute (2) COPD exacerbation Status: Acute Comment Review of Relevant I have reviewed the following items xin (where applicable) has been applied. Medications: Current Medications Medications (Trade) Dose Ordered Sig/Low Route PRN Reason Start Time Stop Time Status Last Admin Dose Admin Amoxicillin/ Clavulanate Potassium (Augmentin 875/ 125mg) 1 tab BID PO 10/17/20 21:00 10/18/20 08:49 Lorazepam (Ativan) 0.5 mg PRN Q8HRS PRN PO ANXIETY / AGITATION 10/17/20 15:45 10/17/20 16:21 Acetaminophen (Tylenol) 650 mg PRN Q6HRS PRN PO MILD PAIN / TEMP > 100.3'F 10/18/20 02:45 10/18/20 02:38 Justifications for Admission Other Justification JAMAR BARRERA MD Oct 18, 2020 15:15
[2020-10-18 19:00] VITALS: BP 143/61
[2020-10-18 23:00] VITALS: BP 112/61
[2020-10-19 03:00] VITALS: BP 134/65
[2020-10-19] MEDS: LORazepam 0.5 MG TABLET PO PRN (03:51)
[2020-10-19 06:24] LABS: BASO % 0 % (0-3); EOS % 0 % (0-3); HEMATOCRIT 32.6 % (36.0-47.0); HEMOGLOBIN 10.7 g/dL (12.0-15.5); LYMPH # 1.1 x10^3/uL (1.0-4.8); LYMPH % 19 % (24-48); MEAN CORPUSCULAR HEMOGLOBIN 29 pg (25-35); MEAN CORPUSCULAR HGB CONC 33 g/dL (31-37); MEAN CORPUSCULAR VOLUME 87 fL (79-100); MONO # 0.7 x10^3/uL (0.0-1.1); MONO % 12 % (0-9); NEUT # 4.1 x10^3/uL (1.8-7.7); NEUT % 70 % (31-73); PLATELET COUNT 204 x10^3/uL (140-400); RED BLOOD COUNT 3.72 x10^6/uL (3.50-5.40); RED CELL DISTRIBUTION WIDTH 15.4 % (11.5-14.5); WHITE BLOOD COUNT 5.8 x10^3/uL (4.0-11.0)
[2020-10-19 06:33] LABS: CALCIUM 7.8 mg/dL (8.5-10.1); CREATININE 0.7 mg/dL (0.6-1.0); GFR 81.6; POTASSIUM 3.6 mmol/L (3.5-5.1)
[2020-10-19 07:30] VITALS: BP 135/54
[2020-10-19] MEDS: IPRATRPIUM/ALBUTEROL 0.5/2.5MG 3 ML NEBU. NEB SCH ×3 (08:27→15:52)
[2020-10-19 11:32] VITALS: BP 138/47
[2020-10-19] MEDS: predniSONE 10 MG TABLET PO SCH (12:18)
[2020-10-19] MEDS: ASPIRIN ENTERIC COATED 81 MG TABLET.DR. PO SCH (12:18)
[2020-10-19] MEDS: AMOXICILLIN/K CLAV 875/125MG TABLET. PO SCH (12:19)
[2020-10-19] MEDS: hydroCHLOROthiazide 12.5 MG CAPSULE PO SCH (12:19)
[2020-10-19] MEDS: LACTOBACILLUS RHAMNOSUS GG 1 CAPSULE. PO SCH (12:19)
[2020-10-19] MEDS: LISINOPRIL 20 MG TABLET PO SCH (12:19)
--- NOTE | 2020-10-19 13:42 | PDOC ---
[facility] [facility] PROGRESS NOTE Date of Service DOS: DATE: 10/19/20 TIME: 13:38 Chief Complaint Chief Complaint Respiratory failure with hypoxia, probable chronic obstructive pulmonary disease exacerbation, possible clinical pneumonia History of the following; COPD, bipolar, anxiety, depression, hypertension, shingles, appendectomy, cholecystectomy, hysterectomy, breast cyst, previous tobacco abuse. She states she quit 8 years ago. History of Present Illness History of Present Illness 10/19/2020 Seen and evaluated. Afebrile, breathing on her baseline 2.5 L nasal cannula. She is stable to discharge home today to complete her home antibiotic regimen o utpatient. She is wanting to home health instead of SNF. Recommend follow-up with her PCP within the next 5-7 days. Greater than 30 minutes were spent managing discharge this patient. 10/18/2020 Patient seen and evaluated bedside. She is currently breathing on 2.5 L nasal cannula, which she states is around how much oxygen she wears at home. Work with PT recommending SNF. Patient states she has tried PT in the past and would like to think about whether or not she is willing to pursue SNF again. If not agreeable to acute rehab, patient may discharge home with home health tomorrow on oral Augmentin and oral prednisone. 10/17/2020 Patient seen and examined She is resting with no apparent distress Discussed with RN Patient is still confused Chart reviewed Vitals/I&O Vitals/I&O: Vital Signs Date Time Temp Pulse Resp B/P (MAP) Pulse Ox O2 Delivery O2 Flow Rate FiO2 10/19/20 12:19 68 138/47 10/19/20 12:05 Nasal Cannula 2.5 10/19/20 11:32 97.6 18 96 97.6 I & O 10/18/20 10/18/20 10/19/20 14:59 22:59 06:59 Intake Total 200 ml Balance 200 ml Physical Exam General: Alert, Oriented X3, Cooperative, No acute distress Heart: Regular rate Lungs: Clear Abdomen: Normal bowel sounds Extremities: No clubbing Skin: No rashes Labs Labs: Laboratory Tests Test 10/19/20 05:45 White Blood Count 5.8 x10^3/uL (4.0-11.0) Red Blood Count 3.72 x10^6/uL (3.50-5.40) Hemoglobin 10.7 g/dL (12.0-15.5) Hematocrit 32.6 % (36.0-47.0) Mean Corpuscular Volume 87 fL (79-100) Mean Corpuscular Hemoglobin 29 pg (25-35) Mean Corpuscular Hemoglobin Concent 33 g/dL (31-37) Red Cell Distribution Width 15.4 % (11.5-14.5) Platelet Count 204 x10^3/uL (140-400) Neutrophils (%) (Auto) 70 % (31-73) Lymphocytes (%) (Auto) 19 % (24-48) Monocytes (%) (Auto) 12 % (0-9) Eosinophils (%) (Auto) 0 % (0-3) Basophils (%) (Auto) 0 % (0-3) Neutrophils # (Auto) 4.1 x10^3/uL (1.8-7.7) Lymphocytes # (Auto) 1.1 x10^3/uL (1.0-4.8) Monocytes # (Auto) 0.7 x10^3/uL (0.0-1.1) Eosinophils # (Auto) 0.0 x10^3/uL (0.0-0.7) Basophils # (Auto) 0.0 x10^3/uL (0.0-0.2) Sodium Level 144 mmol/L (136-145) Potassium Level 3.6 mmol/L (3.5-5.1) Chloride Level 106 mmol/L (98-107) Carbon Dioxide Level 35 mmol/L (21-32) Anion Gap 3 (6-14) Blood Urea Nitrogen 17 mg/dL (7-20) Creatinine 0.7 mg/dL (0.6-1.0) Estimated GFR (Cockcroft-Gault) 81.6 Glucose Level 83 mg/dL (70-99) Calcium Level 7.8 mg/dL (8.5-10.1) Assessment and Plan Assessmemt and Plan Problems Medical Problems: (1) COPD (chronic obstructive pulmonary disease) Status: Acute (2) COPD exacerbation Status: Acute Comment Review of Relevant I have reviewed the following items xin (where applicable) has been applied. Justifications for Admission Other Justification JAMAR BARRERA MD Oct 19, 2020 13:41
--- NOTE | 2020-10-19 13:45 | PDOC3 ---
Discharge Summary Visit Information Date of Admission: Oct 16, 2020 Date of Discharge: Oct 19, 2020 Final Diagnosis Problems Medical Problems: (1) COPD (chronic obstructive pulmonary disease) Status: Acute (2) COPD exacerbation Status: Acute Brief Hospital Course Allergies Allergies Coded Allergies Type Severity Reaction Last Updated Verified Penicillins Allergy Intermediate rash as a child 09/07/20 Yes Vital Signs Vital Signs Date Time Temp Pulse Resp B/P (MAP) Pulse Ox O2 Delivery O2 Flow Rate FiO2 10/19/20 12:19 68 138/47 10/19/20 12:05 Nasal Cannula 2.5 10/19/20 11:32 97.6 18 96 97.6 Lab Results Laboratory Tests Test 10/18/20 05:35 10/19/20 05:45 White Blood Count 6.9 x10^3/uL (4.0-11.0) 5.8 x10^3/uL (4.0-11.0) Red Blood Count 3.86 x10^6/uL (3.50-5.40) 3.72 x10^6/uL (3.50-5.40) Hemoglobin 11.0 g/dL (12.0-15.5) 10.7 g/dL (12.0-15.5) Hematocrit 33.7 % (36.0-47.0) 32.6 % (36.0-47.0) Mean Corpuscular Volume 87 fL (79-100) 87 fL (79-100) Mean Corpuscular Hemoglobin 29 pg (25-35) 29 pg (25-35) Mean Corpuscular Hemoglobin Concent 33 g/dL (31-37) 33 g/dL (31-37) Red Cell Distribution Width 15.6 % (11.5-14.5) 15.4 % (11.5-14.5) Platelet Count 248 x10^3/uL (140-400) 204 x10^3/uL (140-400) Neutrophils (%) (Auto) 79 % (31-73) 70 % (31-73) Lymphocytes (%) (Auto) 10 % (24-48) 19 % (24-48) Monocytes (%) (Auto) 11 % (0-9) 12 % (0-9) Eosinophils (%) (Auto) 0 % (0-3) 0 % (0-3) Basophils (%) (Auto) 0 % (0-3) 0 % (0-3) Neutrophils # (Auto) 5.4 x10^3/uL (1.8-7.7) 4.1 x10^3/uL (1.8-7.7) Lymphocytes # (Auto) 0.7 x10^3/uL (1.0-4.8) 1.1 x10^3/uL (1.0-4.8) Monocytes # (Auto) 0.8 x10^3/uL (0.0-1.1) 0.7 x10^3/uL (0.0-1.1) Eosinophils # (Auto) 0.0 x10^3/uL (0.0-0.7) 0.0 x10^3/uL (0.0-0.7) Basophils # (Auto) 0.0 x10^3/uL (0.0-0.2) 0.0 x10^3/uL (0.0-0.2) Sodium Level 146 mmol/L (136-145) 144 mmol/L (136-145) Potassium Level 3.7 mmol/L (3.5-5.1) 3.6 mmol/L (3.5-5.1) Chloride Level 107 mmol/L (98-107) 106 mmol/L (98-107) Carbon Dioxide Level 36 mmol/L (21-32) 35 mmol/L (21-32) Anion Gap 3 (6-14) 3 (6-14) Blood Urea Nitrogen 20 mg/dL (7-20) 17 mg/dL (7-20) Creatinine 0.9 mg/dL (0.6-1.0) 0.7 mg/dL (0.6-1.0) Estimated GFR (Cockcroft-Gault) 61.0 81.6 Glucose Level 118 mg/dL (70-99) 83 mg/dL (70-99) Calcium Level 7.8 mg/dL (8.5-10.1) 7.8 mg/dL (8.5-10.1) Laboratory Tests Test 10/19/20 05:45 White Blood Count 5.8 x10^3/uL (4.0-11.0) Red Blood Count 3.72 x10^6/uL (3.50-5.40) Hemoglobin 10.7 g/dL (12.0-15.5) Hematocrit 32.6 % (36.0-47.0) Mean Corpuscular Volume 87 fL (79-100) Mean Corpuscular Hemoglobin 29 pg (25-35) Mean Corpuscular Hemoglobin Concent 33 g/dL (31-37) Red Cell Distribution Width 15.4 % (11.5-14.5) Platelet Count 204 x10^3/uL (140-400) Neutrophils (%) (Auto) 70 % (31-73) Lymphocytes (%) (Auto) 19 % (24-48) Monocytes (%) (Auto) 12 % (0-9) Eosinophils (%) (Auto) 0 % (0-3) Basophils (%) (Auto) 0 % (0-3) Neutrophils # (Auto) 4.1 x10^3/uL (1.8-7.7) Lymphocytes # (Auto) 1.1 x10^3/uL (1.0-4.8) Monocytes # (Auto) 0.7 x10^3/uL (0.0-1.1) Eosinophils # (Auto) 0.0 x10^3/uL (0.0-0.7) Basophils # (Auto) 0.0 x10^3/uL (0.0-0.2) Sodium Level 144 mmol/L (136-145) Potassium Level 3.6 mmol/L (3.5-5.1) Chloride Level 106 mmol/L (98-107) Carbon Dioxide Level 35 mmol/L (21-32) Anion Gap 3 (6-14) Blood Urea Nitrogen 17 mg/dL (7-20) Creatinine 0.7 mg/dL (0.6-1.0) Estimated GFR (Cockcroft-Gault) 81.6 Glucose Level 83 mg/dL (70-99) Calcium Level 7.8 mg/dL (8.5-10.1) Brief Hospital Course Ms. Guzmán is a 75 old female who presented with acute COPD exacerbation. She was treated with COPD protocol including steroids, breathing treatments, oxygen, empiric antibiotics, home meds. Her O2 requirement improved to her baseline of 2.5 L nasal cannula. She work with PT was recommended assisted, however patient refused opting instead for home with home health. Will discharge patient home to complete her oral regimen outpatient. Recommend follow-up with PCP within 5 to 7 days. Greater than 30 minutes was spent managing discharge this patient. Discharge Information Condition at Discharge: Improved Follow Up: Weeks Disposition/Orders: D/C to Home Scheduled Albuterol Sulfate (Albuterol Sulfate Conc Neb Soln) 2.5 Mg/0.5 Ml Vial.neb, 1 VIAL NEB Q2HR for soa, #120 Ref 5 (Reported) Entered as Reported by: Kendrick Jaffe on 03/27/191936 Last Action: Reviewed on 10/16/2030 by CATRACHO FLORES Aspirin (Aspirin Ec) 81 Mg Tablet.dr, 81 MG PO DAILYWBKFT for HEART HEALTH for 30 Days, #30 Prescribed by: YOANDY GUTIERREZ MD on 09/14/20 1225 Last Action: Continued on 10/16/201029 by YURY PUENTES RN Hydrochlorothiazide (Hydrochlorothiazide Capsule ) 12.5 Mg Capsule, 12.5 MG PO DAILY for BLOOD PRESSURE for 30 Days, #30 Prescribed by: YOANDY GUTIERREZ MD on 09/14/20 1225 Last Action: Continued on 10/16/201029 by YURY PUENTES, MAGDA Ipratropium/Albuterol Sulfate (Duoneb 0.5-3(2.5) Mg/3 Ml) 3 Ml Ampul.neb, 3 ML NEB Q4HRS for COPD for 30 Days, #180 Prescribed by: YOANDY GUTIERREZ MD on 03/12/19 1124 Last Action: Reviewed on 10/16/2030 by CATRACHO FLORES Lisinopril (Lisinopril) 40 Mg Tablet, 40 MG PO DAILY for blood pressure for 30 Days, #30 Prescribed by: YOANDY GUTIERREZ MD on 03/15/18 1459 Last Action: Continued on 10/16/201029 by YURY PUENTES RN [Ipratropium/Albuterol Sulfate] 3 ML NEBU, 3 ML NEB RTQID, #120 Prescribed by: DEONTE MUÑOZ on 10/02/14 1546 Last Action: Reviewed on 10/16/2030 by CATRACHO FLORES [prednisone] , DAILY, (Reported) Entered as Reported by: CATRACHO FLORES on 10/16/2031 Last Action: New Order on 10/16/2031 by CATRACHO FLORES Scheduled PRN Albuterol Sulfate (Proair Hfa) 8.5 Gm Hfa.aer.ad, 2.5 MG NEB PRN Q2HRS PRN for SHORTNESS OF BREATH for 30 Days, #2 Prescribed by: YOANDY GUTIERREZ MD on 09/14/20 1225 Last Action: Reviewed on 10/16/2030 by CATRACHO FLORES Docusate Sodium (Dok) 100 Mg Capsule, 100 MG PO PRN BID PRN for CONSTIPATION for 14 Days, #30 Prescribed by: YOANDY GUTIERREZ MD on 03/12/19 1124 Last Action: Continued on 10/16/20 103 by YURY PUENTES RN Justicifation of Admission Dx: Justifications for Admission: Justification of Admission Dx: Yes Acute COPD Exacerbation: Acute COPD Exacerbation JAMAR BARRERA MD Oct 19, 2020 13:45
[2020-10-19] MEDS ORDERED: AMOX1TAB11 PO (13:50)
[2020-10-19] MEDS ORDERED: PRED-220 PO (13:50)
--- NOTE | 2020-10-19 13:53 | SNU/HH DC ---
DISCHARGE WITH HOME HEALTH DISCHARGE INFORMATION: Discharge Date: Oct 19, 2020 Final Diagnosis: Problems Medical Problems: (1) COPD (chronic obstructive pulmonary disease) Status: Acute (2) COPD exacerbation Status: Acute Condition on Discharge: Stable CODE STATUS: Code Status: Full HOME HEALTH: Face to Face: I certify this patient is under my care and that I, or a nurse practitioner or physician's assistant softball coach working with me, had a face to face encounter that meets the physician face to face encounter requirements with this patient on 10/19/2020. Medical Complications: COPD RN For Eval/Treatment: Yes Physical Therapy For: Evalulation/Treatment Occupational Therapy For: Evaluation/Treatment Pt Meets Homebound Status: Extreme weakness w/ amb., Fatigue w/ amb. POST DISCHARGE ORDERS: Activity Instructions for Disc: No restrictions Weight Bearing Status after Di: As tolerated DIET AFTER DISCHARGE: Cardiac Wound/Incision Care: No wound care needed CHECKS AFTER DISCHARGE: Checks after discharge: Check blood press - daily TREATMENT/EQUIPMENT ORDERS: Adaptive Equipment Issued: None, Front wheeled walker Discharge Respiratory Equipmen: Oxygen, Nebulizer CERTIFICATION STATEMENT: Certification Statement: Certification Statement: Based on the above finding, I certify that this patient is confined to the home and needs intermittent half-way care, physical therapy and/or speech therapy, or continues to need occupational therapy.~ This patient is under my care, and I have initiated the establishment of the plan of care.~ This patient will be followed by myself or a community physician who will periodically review the plan of care. Home Meds Active Scripts Hydrochlorothiazide (HYDROCHLOROTHIAZIDE CAPSULE ) 12.5 Mg Capsule, 12.5 MG PO DAILY for BLOOD PRESSURE for 30 Days, #30 CAP Prov:YOANDY GUTIERREZ MD 09/14/20 Aspirin (ASPIRIN EC) 81 Mg Tablet.dr, 81 MG PO DAILYWBKFT for HEART HEALTH for 30 Days, #30 TAB.SR Prov:YOANDY GUTIERREZ MD 09/14/20 Albuterol Sulfate (Proair Hfa) 8.5 Gm Hfa.aer.ad, 2.5 MG NEB PRN Q2HRS PRN for SHORTNESS OF BREATH for 30 Days, #2 INHALER Prov:YOANDY GUTIERREZ MD 09/14/20 Docusate Sodium (DOK) 100 Mg Capsule, 100 MG PO PRN BID PRN for CONSTIPATION for 14 Days, #30 CAP Prov:YOANDY GUTIERREZ MD 03/12/19 Ipratropium/Albuterol Sulfate (DUONEB 0.5-3(2.5) MG/3 ML) 3 Ml Ampul.neb, 3 ML NEB Q4HRS for COPD for 30 Days, #180 EACH Prov:YOANDY GUTIERREZ MD 03/12/19 Lisinopril (LISINOPRIL) 40 Mg Tablet, 40 MG PO DAILY for blood pressure for 30 Days, #30 TAB Prov:YOANDY GUTIERREZ MD 03/15/18 [Ipratropium/Albuterol Sulfate] 3 ML NEBU No Conflict Check, 3 ML NEB RTQID, #120 Prov:DEONTE MUÑOZ MD 10/02/14 Reported Medications [prednisone] No Conflict Check, DAILY 10/16/20 Albuterol Sulfate (ALBUTEROL SULFATE CONC NEB SOLN) 2.5 Mg/0.5 Ml Vial.neb, 1 VIAL NEB Q2HR for soa, #120 VIAL 5 Refills 03/27/19 JAMAR BARRERA MD Oct 19, 2020 13:53
[2020-10-19 15:25] VITALS: BP 122/46
--- NOTE | 2020-10-19 15:42 | NUR ---
SONIYA following. Discussed with RN, pt from home with [facility], uses o2 at home, cardiac diet. Pt recently discharged from [facility]. Discharge order for home with [facility]. SONIYA faxed clinicals and discharge order to [facility]. RN contacting family to transport home. No further SW needs. Addendum: 10/19/20 at 1645 by HAYDEN BYRNES Pt is a high risk readmission.
--- NOTE | 2020-10-19 18:26 | NUR ---
Discharge Note: [facility] Discharge instructions and discharge home medications reviewed with Son Huy and a copy given. All questions have been answered and understanding verbalized. The following instructions and handouts were given: follow up instruction, medication education. Discontinued lines and drains: No IV present. Patient discharged to home with home health via son.
== END 2020-10-19 17:45 | disposition home health service (06) | DRG 177 ==
LOC: ER 21:03 → 6 SOUTH 23:43
PROVIDERS: ADMIT Family Medicine; ATTEND Family Medicine
DX: J15.6 Pneumonia due to other Gram-negative bacteria (principal); J96.01 Acute respiratory failure with hypoxia; G93.41 Metabolic encephalopathy; J44.1 Chronic obstructive pulmonary disease with (acute) exacerbation; J15.9 Unspecified bacterial pneumonia; F31.9 Bipolar disorder, unspecified; F41.9 Anxiety disorder, unspecified; I10 Essential (primary) hypertension; Z82.5 Family history of asthma and other chronic lower respiratory diseases; Z87.891 Personal history of nicotine dependence; Z90.49 Acquired absence of other specified parts of digestive tract; Z90.710 Acquired absence of both cervix and uterus; Z88.0 Allergy status to penicillin
CPT/HCPCS: 36415; 71045; 80048; 80053; 83735; 83880; 84443; 84484; 85007; 85025; 93005; 94640; 94760; 96374; J0696; J2920; J2930; J7512; 97116-GP; 97530-GO; 97535-GO; 99285-25; G0378